=== PATIENT | female | born 1945 | race Caucasian/White ===

== ENCOUNTER 2022-11-12 15:44 | Observation (INO) ==
--- NOTE | 2022-11-12 15:55 | ED Triage Note ---
Date of Service November 12, 2022 History of Present Illness This patient was briefly evaluated while in triage. An abbreviated physical exam was performed. This patient is a 77-year-old Female who presents to the ED for evaluation of hyperglycemia. Glucometer read high in primary care's office. Blood sugars have been borderline in the past but no formal diagnosis of diabetes. She was taken to PCP today because she has been urinating a lot and feeling groggy. Increased thirst. No nausea or vomiting. No chest pain or shortness of breath. No abdominal pain, no new neurologic symptoms. Physical Exam CONSTITUTIONAL: in no acute pain or distress, resting comfortably SKIN: pink, warm, dry CARDIAC: regular rate and rhythm RESPIRATORY: in no respiratory distress, lungs clear to auscultation ABDOMEN: Nontender Initial orders for labs and / or imaging were placed and patient was placed in the waiting area until a bed is available. Please see further documentation for the full ED course.
[2022-11-12 16:40] LABS: Basophils # (auto) 0.04 K/uL (0-0.2); Basophils % (auto) 0.4 %; Eosinophils # (auto) 0.01 K/uL (0-0.50); Eosinophils % (auto) 0.1 %; Hematocrit (blood only) 46.8 % (37.0-47.0); Hemoglobin 15.5 g/dl (12.0-16.0); Immature Granulocytes # (auto) 0.05 K/uL (0.01-0.20); Immature Granulocytes % (auto) 0.5 %; Lymphocytes # (auto) 1.15 K/uL (1.2-3.4); Lymphocytes % (auto) 12.3 %; Mean Corpuscular Hemoglobin 30.1 pg (25.0-34.0); Mean Corpuscular Hgb Conc 33.1 g/dL (32.0-36.0); Mean Corpuscular Volume 90.9 fL (80.0-100.0); Monocytes # (auto) 0.44 K/uL (0.11-0.59); Monocytes % (auto) 4.7 %; Neutrophils # (auto) 7.66 K/uL (1.40-6.50); Platelet Count 235 K/uL (130-400); RDW Coefficient of Variation 12.8 % (11.5-14.5); RDW Standard Deviation 42.6 fL (36.4-46.3); Red Blood Count 5.15 M/uL (4.20-5.40); White Blood Count 9.35 K/ul (4.8-10.8)
[2022-11-12 17:11] LABS: Albumin Globulin Ratio 1.8 (0.9-2); Albumin Level 4.8 gm/dl (3.4-5.0); BUN Creatinine Ratio 22.4 (10-20); Bilirubin,Total 1.6 mg/dl (0.2-1.0); Calcium 10.2 mg/dl (8.6-10.3); Est GFR (African American) 24.7 ml/min; Est GFR (Non-African American) 21.3 ml/min; Globulin 2.7 gm/dl (2.5-4.0); Potassium 4.5 mmol/L (3.5-5.1); Total Protein 7.5 gm/dl (6.0-8.3)
[2022-11-12] MEDS ORDERED: SODIUM CHLORIDE 0.9% 1000ML 1,000 ML IV ONE (17:38)
[2022-11-12] MEDS ORDERED: NovoLIN-R INSULIN PER UNIT CHARGE SC STA (17:39)
[2022-11-12] MEDS ORDERED: NovoLIN-R INSULIN PER UNIT CHARGE IV STA (17:39)
[2022-11-12 17:44] LABS: Base Excess VBG 2.4 mEq/L; HCO3 VBG 30 mmol/L; Oxygen Saturation VBG 61.2 %; PCO2 VBG 58 mmHg (38-50); PO2 VBG 38 mmHg; pH VBG 7.32 (7.36-7.41)
--- NOTE | 2022-11-12 18:20 | Emergency Department Note ---
Impression & Plan Acute hyperglycemia, Acute dehydration, Acute kidney injury ED Provider Note INFORMANT: Patient ED PROVIDER(S): Per Doll DO CHIEF COMPLAINT: Hyperglycemia, new onset diabetes PLAN: Disposition: Admission Outpatient prescription management: none Discussion with: I spoke with the hospitalist, who will see the patient for admission/observation and further evaluation and consultation. MEDICAL DECISION MAKING: This is a 77-year-old female who presents to the ED with a chief complaint of hyperglycemia. The patient states that over the past week or so she has had frequent urination and thirst. She states that she saw her medical provider, Jesus Manuel Vaughn from [facility]. He did a BSG there and it was read high. She states that the last time she was seen by him, he reported that she was borderline diabetes in July. The patient has no other complaints. Denies any sources of infection or possible infections. No respiratory symptoms. No abdominal pains. No urinary symptoms. No rashes or cellulitis. The patient's physical exam was unremarkable. She is in no distress on my exam. Vital signs are normal. CBC did not show leukocytosis or anemia. The BUN is 49 and creatinine is 2.19. This is at least double what it was on her previous labs about 2 years ago. Creatinine previously was 1.07. BSG today is 1000. Total bilirubin is slightly elevated at 1.6. This is up from 0.7 previously. VBG shows an acidosis with a pH of 7.32. The patient was hydrated with a liter of normal saline IV. She was given 10 units of IV regular insulin and 10 units of subcu regular insulin. She will be seen by the hospitalist for further evaluation and care. Triage Nursing notes reviewed. Vital Signs: reviewed Prior /Outside records reviewed: none Differential diagnosis: New onset diabetes, hyperglycemia, acute kidney injury, electrolyte abnormality, infection, other. Diagnostics, as interpreted by me: 12 lead ECG: None Cardiac Monitoring ordered: none Medical decision rules: none Imaging studies: none Procedures: none. Critical care: none. HPI: See MDM above. PAST MEDICAL HISTORY: See Below PAST SURGICAL HISTORY: See Below SOCIAL HISTORY: See Below HOME MEDICATIONS: See Below ALLERGIES: See Below VITALS: See Below PHYSICAL EXAMINATION: See MDM for positive findings otherwise unremarkable. CONSTITUTIONAL/VITAL SIGNS: Reviewed GENERAL:done as appropriate INTEGUMENTARY: done as appropriate HEAD: done as appropriate EYES: done as appropriate RESPIRATORY: done as appropriate CARDIOVASCULAR:done as appropriate GI/ABDOMEN:done as appropriate EXTREMITIES: done as appropriate NEUROLOGICAL: done as appropriate PSYCHIATRIC:done as appropriate MUSCULOSKELETAL:done as appropriate TRIAGE NURSING DOCUMENTATION REVIEWED. Past Med/Surg History Medical History CVA (cerebral vascular accident) High cholesterol Hypertension Surgical History H/O tubal ligation Social History Smoking Status: Former smoker Preferred Language: Maori Feels Safe at Home: Yes Allergies Allergies Allergy/AdvReac Type Severity Reaction Status Date / Time No Known Allergies Allergy Unverified 05/05/21 17:21 Results & Data (ED) Vital Signs Vital Signs - 24 hr 11/12/22 15:49 11/12/22 17:34 Temperature 36.5 C Temperature Source Temporal Artery Scan Pulse Rate 85 77 Respiratory Rate 18 Respiratory Effort / Characteristics Non-Labored Spontaneous Respiratory Depth Normal Blood Pressure 107/74 Blood Pressure Mean 85 Pulse Oximetry 95 Oxygen Delivery Method Room Air Sepsis Recent Fever Within 48 Hours No Sepsis New/Unexplained Change in Mental Status No Sepsis Action Taken by Nursing No Action Required Laboratory Data 11/12/22 16:00 11/12/22 16:00 Lab Results 11/12/22 11/12/22 11/12/22 Range/Units 15:55 16:00 16:00 WBC 9.35 (4.8-10.8) K/ul RBC 5.15 (4.20-5.40) M/uL Hgb 15.5 (12.0-16.0) g/dl Hct 46.8 (37.0-47.0) % MCV 90.9 (80.0-100.0) fL MCH 30.1 (25.0-34.0) pg MCHC 33.1 (32.0-36.0) g/dL RDW Std Deviation 42.6 (36.4-46.3) fL RDW Coeff of Bin 12.8 (11.5-14.5) % Plt Count 235 (130-400) K/uL MPV 12.0 (9.4-12.4) fL Immature Gran % (Auto) 0.5 % Neut % (Auto) 82.0 % Lymph % (Auto) 12.3 % Limestone % (Auto) 4.7 % Eos % (Auto) 0.1 % Baso % (Auto) 0.4 % Neut # (Auto) 7.66 H (1.40-6.50) K/uL Lymph # (Auto) 1.15 L (1.2-3.4) K/uL Limestone # (Auto) 0.44 (0.11-0.59) K/uL Eos # (Auto) 0.01 (0-0.50) K/uL Baso # (Auto) 0.04 (0-0.2) K/uL Immature Gran # (Auto) 0.05 (0.01-0.20) K/uL VBG pH (7.36-7.41) VBG pCO2 (38-50) mmHg VBG pO2 mmHg VBG HCO3 mmol/L VBG O2 Saturation % VBG Base Excess mEq/L Sodium 130 L (136-145) mmol/L Potassium 4.5 (3.5-5.1) mmol/L Chloride 86 L (98-107) mmol/L Carbon Dioxide 27 (21-32) mmol/L Anion Gap 17 H (3-11) BUN 49 H (6-23) mg/dl Creatinine 2.19 H (0.6-1.2) mg/dl Est Cr Clr Drug Dosing 22.0 ml/min Est GFR ( Amer) 24.7 ml/min Est GFR (Non-Af Amer) 21.3 ml/min BUN/Creatinine Ratio 22.4 H (10-20) Glucose 1000 H* (70-99(Fasting)) mg/dl POC Glucose > 600 H* (70-99) mg/dl Calcium 10.2 (8.6-10.3) mg/dl Magnesium Total Bilirubin 1.6 H (0.2-1.0) mg/dl AST 44 H (13-39) U/L ALT 53 H (7-52) U/L Alkaline Phosphatase 113 H (34-104) U/L Total Protein 7.5 (6.0-8.3) gm/dl Albumin 4.8 (3.4-5.0) gm/dl Globulin 2.7 (2.5-4.0) gm/dl Albumin/Globulin Ratio 1.8 (0.9-2) 11/12/22 11/12/22 Range/Units 17:11 17:26 WBC (4.8-10.8) K/ul RBC (4.20-5.40) M/uL Hgb (12.0-16.0) g/dl Hct (37.0-47.0) % MCV (80.0-100.0) fL MCH (25.0-34.0) pg MCHC (32.0-36.0) g/dL RDW Std Deviation (36.4-46.3) fL RDW Coeff of Bin (11.5-14.5) % Plt Count (130-400) K/uL MPV (9.4-12.4) fL Immature Gran % (Auto) % Neut % (Auto) % Lymph % (Auto) % Limestone % (Auto) % Eos % (Auto) % Baso % (Auto) % Neut # (Auto) (1.40-6.50) K/uL Lymph # (Auto) (1.2-3.4) K/uL Limestone # (Auto) (0.11-0.59) K/uL Eos # (Auto) (0-0.50) K/uL Baso # (Auto) (0-0.2) K/uL Immature Gran # (Auto) (0.01-0.20) K/uL VBG pH 7.32 L (7.36-7.41) VBG pCO2 58 H (38-50) mmHg VBG pO2 38 mmHg VBG HCO3 30 mmol/L VBG O2 Saturation 61.2 % VBG Base Excess 2.4 mEq/L Sodium (136-145) mmol/L Potassium (3.5-5.1) mmol/L Chloride (98-107) mmol/L Carbon Dioxide (21-32) mmol/L Anion Gap (3-11) BUN (6-23) mg/dl Creatinine (0.6-1.2) mg/dl Est Cr Clr Drug Dosing ml/min Est GFR ( Amer) ml/min Est GFR (Non-Af Amer) ml/min BUN/Creatinine Ratio (10-20) Glucose (70-99(Fasting)) mg/dl POC Glucose (70-99) mg/dl Calcium (8.6-10.3) mg/dl Magnesium Cancelled Total Bilirubin (0.2-1.0) mg/dl AST (13-39) U/L ALT (7-52) U/L Alkaline Phosphatase (34-104) U/L Total Protein (6.0-8.3) gm/dl Albumin (3.4-5.0) gm/dl Globulin (2.5-4.0) gm/dl Albumin/Globulin Ratio (0.9-2) Administered Medications Sodium Chloride (Nss 1000ml) 1,000 mls @ 999 mls/hr IV .[id number] ONE Stop: 11/12/22 18:38 Last Admin: 11/12/22 18:08 Dose: 999 mls/hr Documented By: UZIEL Discontinued Medications Insulin Human Regular (Novolin-R Insulin Per Unit Charge) 10 units IV NOW STA Stop: 11/12/22 17:40 Last Admin: 11/12/22 18:08 Dose: 10 units Documented By: UZIEL Co-signed By: CHATO Insulin Human Regular (Novolin-R Insulin Per Unit Charge) 10 units SC NOW STA Stop: 11/12/22 17:40 Last Admin: 11/12/22 18:08 Dose: 10 units Documented By: UZIEL Co-signed By: CHATO Discharge Plan Visit Data Chief Complaint: Hyperglycemia Stated Complaint: REF BY DOC,HIGH SUGAR LEVEL ED Provider: Per Doll Discharge Problem: Acute hyperglycemia, Acute dehydration, Acute kidney injury Patient Disposition: Being Evaluated by Hospitalist Forms Stand Alone Forms: My [facility] Referrals Referrals: Lester Cali [Primary Care Provider] -
[2022-11-12 18:21] LABS: Magnesium 2.2 mg/dl (1.7-2.4)
[2022-11-12] MEDS ORDERED: STAT IV Infusion **Titration per Protocol STA (18:52)
[2022-11-12] MEDS ORDERED: PHARMACY GLYCEMIC MGMT CONSULT PRN (18:52)
[2022-11-12] MEDS ORDERED: GLUCAGON FOR INJ 1 MG VIAL IM PRN (19:30)
[2022-11-12] MEDS ORDERED: SODIUM CHLORIDE 0.45 % 1,000 ML IV SCH (19:30)
[2022-11-12] MEDS ORDERED: DEXTROSE 50% 50 ML SYRINGE IV PRN (19:30)
[2022-11-12] MEDS ORDERED: CARBOHYDRATES FOR HYPOGLYCEMIA PO PRN (19:30)
[2022-11-12] MEDS ORDERED: GLUCOSE 10 TAB/TUBE PO PRN (19:30)
[2022-11-12] MEDS ORDERED: GLUCOSE 40% GEL 15 GM TUBE PO PRN (19:30)
[2022-11-12 19:52] LABS: BUN Creatinine Ratio 24.7 (10-20); Calcium 9.5 mg/dl (8.6-10.3); Creatinine Clr Calc Pharmacy 24.8 ml/min; Est GFR (African American) 28.6 ml/min; Est GFR (Non-African American) 24.7 ml/min; Magnesium 2.2 mg/dl (1.7-2.4); Phosphorus 3.5 mg/dl (2.5-4.9); Potassium 3.1 mmol/L (3.5-5.1)
--- NOTE | 2022-11-12 19:53 | History & Physical Report ---
Date of Service November 12, 2022 Assessment & Plan (1) Acute hyperglycemia: Plan: 77 F with prior history of elevated cholesterol, hypertension who presented to emergency room for persistent thirst, urinary frequency. Now admitted for management of new acute onset hyperglycemia. Acute hyperglycemia -No previous episodes of hypoglycemia, although patient was informed she was hyperglycemic at last routine visit with outpatient provider. -Presented only with increased urinary frequency and thirst. No recent illness, lethargy, dyspnea, abdominal pain. -BSG 1000 on admission. Afebrile. No leukocytosis. pH of 7.32. AG-17. Na + 130, BUN 49, creatinine 2.19. Total bilirubin 1.6. AST/ALT 44/53. Alk phos slightly elevated at 113. -S/p IV NS x1 L bolus, 10 units IV insulin, 10 units SC insulin in the ED. -K+ dropped to 3.1, from 4.5. Repleted with 40 mEq of IV KCl. Initiated 1/2 NS +20 mEq KCl. * Admit to PCU. * N.p.o. except for sips and chips. * 1/2 NS + 20 mEq KCl@150 mL/h. * Continue IV insulin per protocol once potassium repleted. * BSG glucometer checks every hour. Transition to SC insulin per protocol once BSG <250. * BMP, Mg, phosphorus, VBG checks every 4 hours. Replete lytes per protocol. * A.m. hemoglobin A1c RYAN -Creatinine 2.19. 1.07 at baseline. Already improved to 1.94 prior to admission. -Likely prerenal due to reported dehydration, BUN/creatinine ratio. * IV hydration, as above. Hypertension -Chronic; patient on irbesartan-HCTZ 300-25 mg, Toprol 100 mg, amlodipine 5 mg. * Held on admission. Resume once able to tolerate p.o. Hypercholesterolemia -Chronic; patient on atorvastatin 40 mg. * Held on admission. Resume once able to tolerate p.o. Code: Full code Dispo: PCU FEN/GI: NPO. D5 1/2 NS +20 mEq KCl@150 mL/h DVT Prophylaxis: Lovenox 40 mg q24h PT/OT: No Consults: None Case Management: No (2) Acute kidney injury: (3) Hypertension: (4) High cholesterol: (5) Hyperosmolar hyperglycemic state (HHS): History of Present Illness Primary Care Provider: Lester Garrison is a 77-year-old female who presents to the ED with a chief complaint of hyperglycemia. The patient states that over the past week or so she has had frequent urination and thirst. She presented to her outpatient provider, who measured her BSG which was high. She states that the last time she was seen by him, she was told that she was borderline diabetes in July. The patient has no other complaints. Denies any sources of infection or possible infections. No respiratory symptoms. No abdominal pains. No urinary symptoms. No rashes or cellulitis. Vital signs are normal. CBC did not show leukocytosis or anemia. The BUN is 49 and creatinine is 2.19. This is at least double what it was on her previous labs about 2 years ago. Creatinine previously was 1.07. BSG today is 1000. Total bilirubin is slightly elevated at 1.6. This is up from 0.7 previously. VBG shows an acidosis with a pH of 7.32. The patient was hydrated with a liter of normal saline IV. She was given 10 units of IV regular insulin and 10 units of SC regular insulin. On admission, she continues to deny any prior infection, respiratory symptoms, abdominal pain, or urinary symptoms. She is accompanied by her daughter, who is at bedside and corroborates this account. ROS + for thirst only. Allergies Allergy/AdvReac Type Severity Reaction Status Date / Time No Known Allergies Allergy Unverified 11/12/22 18:53 Home Medications Medication Instructions Recorded Confirmed Type amlodipine 5 mg tablet 5 mg PO DAILY 11/12/22 11/12/22 History ascorbic acid (vitamin C) 500 mg 0 mg PO DAILY 11/12/22 11/12/22 History tablet aspirin 81 mg tablet,delayed 81 mg PO DAILY 11/12/22 11/12/22 History release atorvastatin 80 mg tablet 80 mg PO DAILY 11/12/22 11/12/22 History cholecalciferol (vitamin D3) 25 25 mcg PO DAILY 11/12/22 11/12/22 History mcg (1,000 unit) tablet irbesartan 150 2 tab PO DAILY 11/12/22 11/12/22 History mg-hydrochlorothiazide 12.5 mg tablet metoprolol succinate 100 mg 100 mg PO DAILY 11/12/22 11/12/22 History tablet,extended release 24 hr zinc gluconate 50 mg tablet 0 mg PO DAILY 11/12/22 11/12/22 History Past Med/Surg History Medical History (Updated 11/13/22 @ 08:02 by Sourav Kent MD) CVA (cerebral vascular accident) High cholesterol Hypertension Surgical History H/O tubal ligation Social History Smoking Status: Former smoker Second Hand Exposure: No; Do You Dip or Chew Tobacco: No; Tobacco Cessation Education Requested by Patient: No Hx Alcohol Use: No Hx Substance Use: No Preferred Language: Danish Communication Ability: Effective Personal Lines Agent Required: No Beliefs That Will Affect Care: None Current Living Situation: Alone Feels Safe at Home: Yes Safety Concerns: Feels Safe At This Time Review of Systems Review of Systems: All systems reviewed & are unremarkable except as noted in HPI & below Physical Exam Physical Exam: General: No acute distress HEENT: PERRLA. Normal conjunctiva, anicteric sclera. Oropharynx normal. Respiratory: Normal respiratory effort, CTABL. Cardiovascular: RRR without murmurs, gallops, or rubs. No edema. GI: Soft abdomen with normal bowel sounds heard on auscultation. Nontender x4 quadrants Neuro: Alert and oriented x3. Results & Data Results & Data Vital Signs (Past 12 Hours) Vital Signs Temp Pulse Resp BP Pulse Ox O2 Del Method 11/12/22 18:30 91 H 14 93 11/12/22 18:30 122/72 11/12/22 18:00 74 17 92 11/12/22 18:00 129/79 11/12/22 17:31 75 18 92 11/12/22 17:30 112/70 11/12/22 17:34 77 11/12/22 15:49 36.5 C 85 18 107/74 95 Room Air Supervising Physician Co-Signing Physician Notes I personally saw and examined the patient. I verified all mckeon points and agree with resident physician Dr Osmar Carrera MD with the following exceptions and/or additions: 77 year old female presents to the ER on advice of her PCP with hyperglycemia, polyuria and polydipsia. She has had nothing to eat since supper last night and ER glucose level 1000 mg/dL. Also notes unintentional weight loss. No abdominal pain. O/E Alert and orientated x3, HS RRR, no murmurs, Chest CTAB, Abdo SNT, no CVA tenderness. A/P Hyperosmolar hyperglycemic state - Agree with insulin drip but aim adjusted for HHS 250-350. IV fluids adjusted for protocol. D5 to be added to fluids only once glucose reaches goal. Potassium chloride 40meq PO added. Insulin drip held until K > 3.3. Given acute onset and severity with concurrent unintentional weight loss and elevated LFTs will get CT A/P with IV contrast in AM once renal function improved to rule out anatomical reason for pancreatic dysfunction. HbA1C with AM labs. HTN - agree with holding irbesartan/HCTZ/amlodipine as above. Will continue metoprolol to avoid rebound tachycardia with usual hold parameters. RYAN - suspect pre-renal, should improve with IV fluids Resident Activity Tracking Resident Involvement: Resident Care Provided Care Provided: Adult Hospital Medicine
[2022-11-12] MEDS: INSULIN REGULAR 250 UNITS in SODIUM CHLORIDE 0.9% 247.5 ML IV SCH (19:56)
[2022-11-12] MEDS ORDERED: D5W AND 1/2NSS + 20MEQ KCL 20 MEQ/1,000 ML BAG IV SCH (20:15)
[2022-11-12 20:22] LABS: Appearance Urine Clear (Clear); Bilirubin Urine Negative (Negative); Blood Urine Negative (Negative); Color Urine Yellow; Glucose Urine UA 3+ (Negative); Ketones Urine 1+ (Negative); Leukocyte Esterase Urine Negative (Negative); Nitrite Urine Negative (Negative); Protein Urine Negative (Negative); Specific Gravity Urine 1.031 (1.000-1.030); Urobilinogen Urine Negative (Negative)
[2022-11-12] MEDS: POTASSIUM CHLORIDE / WTR 10 MEQ/100 ML PLCT IV SCH ×2 (21:10→22:07)
[2022-11-12] MEDS ORDERED: POTASSIUM CHLORIDE CRTAB 20 MEQ TABCR PO STA (21:39)
[2022-11-12] MEDS: INSULIN ASPART PER UNIT CHARGE SC SCH (21:55)
[2022-11-12] MEDS ORDERED: SODIUM CHLOR 0.45% + 20MEQ KCL 20 MEQ/1,000 ML BAG IV SCH (22:00)
[2022-11-12 23:44] LABS: BUN Creatinine Ratio 30.5 (10-20); Calcium 9.6 mg/dl (8.6-10.3); Est GFR (African American) 38.8 ml/min; Est GFR (Non-African American) 33.5 ml/min; Magnesium 2.1 mg/dl (1.7-2.4); Phosphorus 3.2 mg/dl (2.5-4.9); Potassium 3.8 mmol/L (3.5-5.1)
[2022-11-13] MEDS ORDERED: D5W AND 1/2NSS + 20MEQ KCL 20 MEQ/1,000 ML BAG IV SCH (01:30)
[2022-11-13] MEDS: PENDING D5 1/2NS+20mEq KCL IVF SCH ×2 (01:33→01:34)
[2022-11-13 04:37] LABS: Albumin Globulin Ratio 1.6 (0.9-2); Albumin Level 3.9 gm/dl (3.4-5.0); BUN Creatinine Ratio 33.9 (10-20); Bilirubin,Total 0.9 mg/dl (0.2-1.0); Calcium 9.3 mg/dl (8.6-10.3); Est GFR (African American) 47.8 ml/min; Est GFR (Non-African American) 41.2 ml/min; Globulin 2.5 gm/dl (2.5-4.0); Potassium 3.3 mmol/L (3.5-5.1); Total Protein 6.4 gm/dl (6.0-8.3)
[2022-11-13] MEDS ORDERED: POTASSIUM CHLORIDE 10 MEQ TABCR PO STA (05:03)
[2022-11-13 05:11] LABS: Phosphorus 2.4 mg/dl (2.5-4.9)
[2022-11-13] MEDS: POTASSIUM CHLORIDE 40 MEQ in D5W AND 1/2NSS 1,000 ML IV SCH ×2 (05:18→12:41)
[2022-11-13 06:14] LABS: Basophils # (auto) 0.05 K/uL (0-0.2); Basophils % (auto) 0.5 %; Eosinophils # (auto) 0.15 K/uL (0-0.50); Eosinophils % (auto) 1.5 %; Hematocrit (blood only) 39.1 % (37.0-47.0); Hemoglobin 13.6 g/dl (12.0-16.0); Immature Granulocytes # (auto) 0.04 K/uL (0.01-0.20); Immature Granulocytes % (auto) 0.4 %; Lymphocytes # (auto) 2.65 K/uL (1.2-3.4); Lymphocytes % (auto) 26.8 %; Mean Corpuscular Hemoglobin 29.9 pg (25.0-34.0); Mean Corpuscular Hgb Conc 34.8 g/dL (32.0-36.0); Mean Corpuscular Volume 85.9 fL (80.0-100.0); Mean Platelet Volume 11.2 fL (9.4-12.4); Monocytes # (auto) 0.73 K/uL (0.11-0.59); Monocytes % (auto) 7.4 %; Neutrophils # (auto) 6.28 K/uL (1.40-6.50); Neutrophils % (auto) 63.4 %; Platelet Count 198 K/uL (130-400); RDW Coefficient of Variation 12.5 % (11.5-14.5); RDW Standard Deviation 38.7 fL (36.4-46.3); Red Blood Count 4.55 M/uL (4.20-5.40)
[2022-11-13] MEDS ORDERED: OPTIRAY 320 100ml IV ONE (06:16)
[2022-11-13 07:10] LABS: Estimated Average Glucose 384 mg/dl
[2022-11-13] MEDS ORDERED: LANTUS PER UNIT CHARGE SC ONE ×2 (07:30→13:30)
[2022-11-13 07:45] LABS: Calcium 8.9 mg/dl (8.6-10.3); Potassium 3.8 mmol/L (3.5-5.1)
[2022-11-13 07:51] LABS: BUN Creatinine Ratio 32.5 (10-20); Creatinine Clr Calc Pharmacy 41.2 ml/min; Est GFR (African American) 52.8 ml/min; Est GFR (Non-African American) 45.5 ml/min
--- NOTE | 2022-11-13 08:13 | Billing Data ---
Date of Service November 12, 2022 Coding Level of Care Code 09739 INT INP/OBS CARE
--- NOTE | 2022-11-13 08:20 | Medical Student Progress Note ---
Date of Service November 13, 2022 Assessment & Plan (1) Acute hyperglycemia: Plan: Meli is a 77-year-old female with a PMHx of HTN, HLD, prediabetes, stroke s/p left stent placement (2019), and macular degeneration who was admitted on 11/12/22 for concerns of hyperglycemia. Acute hyperglycemia, concern for HHS - No previous episodes of hypoglycemia. Meli was informed that she was hyperglycemic at last routine visit with outpatient provider. - Ion gap closed. POC Glucose: 387 at 11 am. Continued IV insulin and 1/2 Normal saline. - BSG glucometer checks every hour. - CMP, Mg, phosphorus, VBG checks daily. - Phosphorous at 2.0. Repleted with Potassium Phosphorous 15 mmol IV. - Replete electrolytes per protocol. Heart murmur, new, likely aortic stenosis - Murmur appreciated on exam. - Echo ordered Hepatic Lobe Mass - CT Abd/pelvic 11/13/22: "5.7 x 4.2 cm segment 7/8 right hepatic lobe mass with peripheral enhancement. This is suspicious for a neoplastic process and could reflect a primary hepatic malignancy. Metastatic disease is also within the differential. Liver protocol MRI with and without contrast is recommended for further evaluation." -Discussed results of the CT with patient and her two sons. They were agreeable to a liver biopsy pending stabilization. Interventional radiology will not be available until Thursday and will follow up with Meli outpatient. -Will get INR tomorrow. Reactive transaminitis, resolved - Etiology likely secondary to HHS. RYAN, likely prerenal, resolving -At presentation: Creatinine 2.19. 1.07 at baseline. -Improved to 1.17 as of 11/13/22 -Likely prerenal due to reported dehydration, BUN/creatinine ratio. -Continue IV hydration, as above. Hypertension, chronic, stable. -On irbesartan-HCTZ 300-25 mg, metoprolol ER 100 mg, amlodipine 5 mg. -Continue to hold Irbesartan-HCTZ and amlodipine. Hypercholesterolemia, chronic, stable. -On atorvastatin 40 mg. -Resuming as patient is able to tolerate p.o. Code: Full code Dispo: PCU FEN/GI: DM2 diet DVT Prophylaxis: Lovenox 40 mg q24h Held home meds: irbesartan-HCTZ and amlodipine PT/OT: No Consults: Diabetes education Case Management: No Admission and Anticipated Discharge Date Admission Date: November 12, 2022 Supervising Attestation Medical Student Supervision Note: I was personally present during medical student patient encounter and independently interviewed and examined the patient and verified the mckeon history and physical, reviewed labs and image studies, discussed the case with Kristi Harrington and agree with the findings and care plan. HHS - New diagnosis if diabetes. On IV insulin drip and IVF. BSG improving. follow. New hepatic mass - will need IR about biopsy RYAN/Transaminitis - resolved. Heart murmur - echo ordered. Ann Garrison is a 77-year-old female with a PMHx of HTN, HLD, prediabetes, stroke s/p left stent placement (2019), and macular degeneration who was admitted on 11/12/22 for concerns of hyperglycemia. She went to the ED at the advice of her grandson who is a nurse, but does not remember why he advised her to come in. Over the past week, she has had polyuria and polydipsia. She has not been having respiratory symptoms, abdominal pains, dysuria, rashes, back pain, or confusion. She had not noticed any weight loss. Meli reported having little feeling in her right hand, secondary to a prior stroke. She has no other concerns. She last saw her PCP in July and was told that her glucose was borderline. The patient was hydrated with a liter of normal saline IV.She was given 10 units of IV regular insulin and 10 units of SC regular insulin. Today, she does not have any concerns other than being thirsty. She has no abdominal pain, respiratory, or urinary symptoms. She has [facility] insurance and is not concerned about having access to any medications she will need to be on after leaving the hospital. Home Medications Medication Instructions Recorded Confirmed amlodipine 5 mg tablet 5 mg PO DAILY 11/12/22 11/12/22 ascorbic acid (vitamin C) 500 mg 0 mg PO DAILY 11/12/22 11/12/22 tablet aspirin 81 mg tablet,delayed 81 mg PO DAILY 11/12/22 11/12/22 release atorvastatin 80 mg tablet 80 mg PO DAILY 11/12/22 11/12/22 cholecalciferol (vitamin D3) 25 25 mcg PO DAILY 11/12/22 11/12/22 mcg (1,000 unit) tablet irbesartan 150 2 tab PO DAILY 11/12/22 11/12/22 mg-hydrochlorothiazide 12.5 mg tablet metoprolol succinate 100 mg 100 mg PO DAILY 11/12/22 11/12/22 tablet,extended release 24 hr zinc gluconate 50 mg tablet 0 mg PO DAILY 11/12/22 11/12/22 Review of Systems Review of Systems: See HPI for pertinent positives & negatives. A total of 10 systems reviewed and were otherwise negative. Physical Exam Physical Exam: Vital Signs Temp 36.9 C 11/13/22 08:00 Pulse 63 11/13/22 08:00 Resp 18 11/13/22 08:00 BP 101/63 11/13/22 08:00 Pulse Ox 97 11/13/22 08:00 O2 Del Method Room Air 11/13/22 08:00 O2 Flow Rate 97 11/13/22 08:00 Intake & Output 11/12/22 11/13/22 11/13/22 18:59 06:59 18:59 Intake Total 4730.890 / 4730.89 0 Balance 4730.890 / 4730.89 0 Weight 74.6 kg 75.16 kg Intake: IV 4730.890 / 4730.89 0 D5w and 1/2Nss + 20Meq KCl 20 1512.5 / 1512.5 meq In 1,000 m l @ 150 mls/hr IV .Q6H40M [facility] Rx #:[id number] Insulin Regula r 250 units In 23.390 / 23.390 Sodium Chlorid e 0.9% 247.5 ml @ 2.2 UNITS/HR 2 .2 mls/hr IV . Q24H [facility] Rx#:[id number] Potassium Chlo ride / Wtr 10 meq 195 / 195 In 100 ml @ 10 0 mls/hr IV Q1H [facility] Rx#:[id number] Sodium Chlor 0 .45% + 20Meq KCl 1000 / 1000 20 meq In 1,00 0 ml @ 150 mls/hr IV .Q6H40M [facility] Rx#:[id number] Sodium Chlorid e 0.45 % 1,000 ml 1000 / 1000 @ 150 mls/hr I V .Q6H40M [facility] Rx #:[id number] Sodium Chlorid e 0.9% 1000ML 1, 1000 / 1000 000 ml @ 999 m ls/hr IV .Q1H1M ONE Rx#:[id number] Other: # Unmeasured Voi ds 1 Weight Measureme nt Method Built in [facility] Weight: 164 lbs (184 lbs 04/2020) General: No acute distress HEENT: PERRLA. Normal conjunctiva, anicteric sclera. Oropharynx normal. Dry mucus membranes. Respiratory: Normal respiratory effort, CTABL. Cardiovascular: RRR. Systolic murmur appreciated over the right second intercostal space. MSK: No obvious deformities. Dry skin appreciated over the calves and feet bilaterally. No ulcers appreciated. No pitting edema. Sensation to pressure intact in the b/l lower extremities. Neuro: Alert and oriented x3. Psych: Affect somewhat restricted. Results & Data Vital Signs (Past 12 Hours) Vital Signs Temp Pulse Pulse Resp BP BP BP 11/13/22 02:54 36.4 C L 53 L 18 104/68 90/58 L 11/12/22 23:00 64 11/12/22 23:13 36.3 C L 70 20 104/70 11/12/22 21:00 69 11/12/22 21:00 11/12/22 21:00 36.3 C L 73 18 111/75 11/12/22 20:55 68 18 114/72 Pulse Ox O2 Del Method 11/13/22 02:54 90 Room Air 11/12/22 23:00 11/12/22 23:13 92 Room Air 11/12/22 21:00 11/12/22 21:00 Room Air 11/12/22 21:00 92 Room Air 11/12/22 20:55 99 Room Air Laboratory Results Abnormal Labs 11/12/22 11/12/22 11/12/22 15:55 16:00 16:00 Neut # (Auto) 7.66 H Lymph # (Auto) 1.15 L [place] # (Auto) VBG pH VBG pCO2 Sodium 130 L Potassium Chloride 86 L Anion Gap 17 H BUN 49 H Creatinine 2.19 H BUN/Creatinine Ratio 22.4 H Glucose 1000 H* POC Glucose > 600 H* Hemoglobin A1c Phosphorus Total Bilirubin 1.6 H AST 44 H ALT 53 H Alkaline Phosphatase 113 H Ur Specific [place] Urine Glucose (UA) Urine Ketones 11/12/22 11/12/22 11/12/22 17:26 19:01 19:05 Neut # (Auto) Lymph # (Auto) [place] # (Auto) VBG pH 7.32 L VBG pCO2 58 H Sodium Potassium 3.1 L D Chloride 96 L Anion Gap 15 H BUN 48 H Creatinine 1.94 H BUN/Creatinine Ratio 24.7 H Glucose 695 H* POC Glucose > 600 H* Hemoglobin A1c Phosphorus Total Bilirubin AST ALT Alkaline Phosphatase Ur Specific [place] Urine Glucose (UA) Urine Ketones 11/12/22 11/12/22 11/12/22 19:30 20:06 20:54 Neut # (Auto) Lymph # (Auto) [place] # (Auto) VBG pH 7.35 L VBG pCO2 Sodium Potassium Chloride Anion Gap BUN Creatinine BUN/Creatinine Ratio Glucose POC Glucose 487 H* Hemoglobin A1c Phosphorus Total Bilirubin AST ALT Alkaline Phosphatase Ur Specific [place] 1.031 H Urine Glucose (UA) 3+ H Urine Ketones 1+ H 11/12/22 11/12/22 11/12/22 21:59 22:50 22:50 Neut # (Auto) Lymph # (Auto) [place] # (Auto) VBG pH 7.42 H VBG pCO2 Sodium Potassium Chloride Anion Gap 12 H BUN 46 H Creatinine 1.51 H D BUN/Creatinine Ratio 30.5 H Glucose 427 H* POC Glucose 470 H* Hemoglobin A1c Phosphorus Total Bilirubin AST ALT Alkaline Phosphatase Ur Specific [place] Urine Glucose (UA) Urine Ketones 11/12/22 11/13/22 11/13/22 22:55 00:03 01:10 Neut # (Auto) Lymph # (Auto) [place] # (Auto) VBG pH VBG pCO2 Sodium Potassium Chloride Anion Gap BUN Creatinine BUN/Creatinine Ratio Glucose POC Glucose 420 H* 385 H* 314 H* Hemoglobin A1c Phosphorus Total Bilirubin AST ALT Alkaline Phosphatase Ur Specific [place] Urine Glucose (UA) Urine Ketones 11/13/22 11/13/22 11/13/22 01:52 02:58 03:50 Neut # (Auto) Lymph # (Auto) [place] # (Auto) VBG pH VBG pCO2 Sodium Potassium Chloride Anion Gap BUN Creatinine BUN/Creatinine Ratio Glucose POC Glucose 319 H* 318 H* Hemoglobin A1c 15.0 H Phosphorus Total Bilirubin AST ALT Alkaline Phosphatase Ur Specific [place] Urine Glucose (UA) Urine Ketones 11/13/22 11/13/22 11/13/22 03:50 03:51 03:56 Neut # (Auto) Lymph # (Auto) [place] # (Auto) 0.73 H VBG pH VBG pCO2 Sodium Potassium 3.3 L Chloride Anion Gap BUN 43 H Creatinine 1.27 H BUN/Creatinine Ratio 33.9 H Glucose 328 H* POC Glucose 327 H* Hemoglobin A1c Phosphorus 2.4 L Total Bilirubin AST ALT Alkaline Phosphatase Ur Specific [place] Urine Glucose (UA) Urine Ketones 11/13/22 11/13/22 11/13/22 04:00 04:55 06:00 Neut # (Auto) Lymph # (Auto) [place] # (Auto) VBG pH 7.42 H VBG pCO2 Sodium Potassium Chloride Anion Gap BUN Creatinine BUN/Creatinine Ratio Glucose POC Glucose 312 H* 296 H Hemoglobin A1c Phosphorus Total Bilirubin AST ALT Alkaline Phosphatase Ur Specific [place] Urine Glucose (UA) Urine Ketones 11/13/22 11/13/22 11/13/22 07:02 07:14 07:30 Neut # (Auto) Lymph # (Auto) [place] # (Auto) VBG pH VBG pCO2 Sodium Potassium Chloride Anion Gap BUN 38 H Creatinine BUN/Creatinine Ratio 32.5 H Glucose 286 H POC Glucose 289 H 308 H* Hemoglobin A1c Phosphorus 2.0 L Total Bilirubin AST ALT Alkaline Phosphatase Ur Specific [place] Urine Glucose (UA) Urine Ketones 11/13/22 11/13/22 07:31 09:22 Neut # (Auto) Lymph # (Auto) [place] # (Auto) VBG pH VBG pCO2 Sodium Potassium Chloride Anion Gap BUN Creatinine BUN/Creatinine Ratio Glucose POC Glucose 302 H* 267 H Hemoglobin A1c Phosphorus Total Bilirubin AST ALT Alkaline Phosphatase Ur Specific [place] Urine Glucose (UA) Urine Ketones Diagnostic Findings CT OF THE ABDOMEN AND PELVIS WITH CONTRAST CLINICAL HISTORY: new onset severe diabetes, weight loss ?pancreatic COMPARISON STUDY: None. TECHNIQUE: Following IV administration of 83 mL of Optiray, axial images of the abdomen and pelvis were obtained from the lung bases to the proximal femurs. Images were reviewed in the axial, sagittal, and coronal planes. IV contrast was administered without complication. Automated exposure control was utilized for the study. A dose lowering technique was utilized adhering to the principles of ALARA. CT DOSE: 543.82 mGy.cm FINDINGS: Lung bases are unremarkable. No pneumatosis, free air or portal venous gas is present. Liver morphology is normal. Note is made of a subtle 5.7 x 4.2 cm segment 7/8 right hepatic lobe lesion on axial image 81 of 461. This has peripheral enhancement. This splays the middle and right hepatic veins and may narrow the intrahepatic portion of the IVC. A small adjacent hypodense focus is noted. No additional hepatic lesions are present. There is no biliary or pancreatic ductal dilatation. Spleen, adrenal glands are unremarkable. There are a few renal cysts. There is mild pancreatic glandular atrophy. No pancreatic lesion is identified. There is no biliary or pancreatic ductal dilatation. There is no evidence for a bowel obstruction. The caliber and wall thickness of small and large bowel are normal. There is no ascites or lymphadenopathy. Infrarenal abdominal aorta is ectatic, measuring 2.4 cm. There are no acute fractures. No suspicious lesions within the visualized skeletal structures are present. IMPRESSION: 1. 5.7 x 4.2 cm segment 7/8 right hepatic lobe mass with peripheral enhancement. This is suspicious for a neoplastic process and could reflect a primary hepatic malignancy. Metastatic disease is also within the differential. Liver protocol MRI with and without contrast is recommended for further evaluation. 2. No pancreatic lesion. No pancreatic ductal dilatation. Mild pancreatic glandular atrophy. 3. No bowel obstruction. No bowel wall thickening. ACT 112: Positive. There are findings on this exam that require communication between the performing entity and the patient following Patient Test Result Information Act ([place] Act 112) guidelines. Electronically signed by: Tigre Chau M.D. 11/13/2022 1:18 PM Dictated:11/13/22 1245 Transcribed: 11/13/22 1258 Medications Administered Current Inpatient Medications Aspirin (Aspirin 81 Mg Ectab) 81 mg PO DAILY [facility] Stop: 12/13/22 08:59 Last Admin: 11/13/22 08:53 Dose: 81 mg Atorvastatin Calcium (Atorvastatin 40 Mg Tab) 80 mg PO DAILY [facility] Stop: 12/13/22 08:59 Last Admin: 11/13/22 08:53 Dose: 80 mg Dextrose (Dextrose 50% 50 Ml Syringe) 25 - 50 ml IV UD PRN; Protocol PRN Reason: Hypoglycemia Protocol Stop: 12/12/22 19:29 Enoxaparin Sodium (Enoxaparin Inj 30 Mg/0.3 Ml Syr) 30 mg SQ QAM [facility] Stop: 12/13/22 08:59 Last Admin: 11/13/22 08:53 Dose: 30 mg Glucagon (Glucagon For Inj 1 Mg Vial) 1 mg IM UD PRN; Protocol PRN Reason: Hypoglycemia Protocol Stop: 12/12/22 19:29 Glucose (Glucose 40% Gel 15 Gm Tube) 15 - 30 gm PO UD PRN; Protocol PRN Reason: Hypoglycemia Protocol Stop: 12/12/22 19:29 Glucose (Glucose 10 Tab/Tube) 4 - 8 tab PO UD PRN; Protocol PRN Reason: Hypoglycemia Protocol Stop: 12/12/22 19:29 Insulin Human Regular 250 (units/ Sodium Chloride) 250 mls @ 2.6 mls/hr IV .Q24H [facility]; Protocol Stop: 12/12/22 19:29 Last Titration: 11/13/22 04:57 Dose: 2.6 units/hr, 2.6 mls/hr Potassium Chloride 40 meq/ (Dextrose/Sodium Chloride) 1,020 mls @ 150 mls/hr IV .Q6H48M [facility]; Protocol Stop: 12/13/22 05:14 Last Admin: 11/13/22 05:18 Dose: 150 mls/hr Potassium Phosphate 15 mmol/ (Sodium Chloride) 255 mls @ 88 mls/hr IV ONE ONE Stop: 11/13/22 12:08 Insulin Aspart (Insulin Aspart Per Unit Charge) 0 units SC ACHS [facility] Stop: 12/12/22 20:59 Last Admin: 11/13/22 08:35 Dose: Not Given Metoprolol Succinate (Metoprolol Succ 50mg Ext Rel Tab) 100 mg PO DAILY [facility] Stop: 12/13/22 08:59 Last Admin: 11/13/22 08:53 Dose: 100 mg Miscellaneous (Carbohydrates For Hypoglycemia ) 15 - 30 gm PO UD PRN PRN Reason: Hypoglycemia Treatment Stop: 12/12/22 19:29 Miscellaneous Information (Pharmacy Glycemic Mgmt Consult) 1 each N/A UD PRN PRN Reason: Consult Stop: 12/12/22 18:51
[2022-11-13] MEDS: INSULIN ASPART PER UNIT CHARGE SC SCH ×4 (08:35→20:13)
--- NOTE | 2022-11-13 08:43 | Pharmacy Report ---
Pharmacy Glycemic Short Note 2 - Date of Service November 13, 2022 - Glycemic Short BSG Results (Last 24 hours): 11/12/22 11/12/22 11/12/22 15:55 16:00 19:01 Glucose 1000 H* POC Glucose > 600 H* > 600 H* 11/12/22 11/12/22 11/12/22 19:05 20:54 21:59 Glucose 695 H* POC Glucose 487 H* 470 H* 11/12/22 11/12/22 11/13/22 22:50 22:55 00:03 Glucose 427 H* POC Glucose 420 H* 385 H* 11/13/22 11/13/22 11/13/22 01:10 01:52 02:58 Glucose POC Glucose 314 H* 319 H* 318 H* 11/13/22 11/13/22 11/13/22 03:50 03:56 04:55 Glucose 328 H* POC Glucose 327 H* 312 H* 11/13/22 11/13/22 11/13/22 06:00 07:02 07:14 Glucose 286 H POC Glucose 296 H 289 H 11/13/22 11/13/22 07:30 07:31 Glucose POC Glucose 308 H* 302 H* OUTPATIENT ANTIDIABETIC REGIMEN: * N/A - new diagnosis HbA1c: 15% (11/13/22) ASSESSMENT: * DV is a 77 year old female who presented to ED on 11/12/22 w/ complaints of persistent thirst and increased urinary frequency * BSG at time of presentation was 1000 mg/dL w/ elevated anion gap 17, pH: 7.32, and normal serum bicarb * Serum osmolarity calculated to be 333 mOsm/kg at time of presentation * Apparent HHS based on this presentation * Insulin infusion and IV fluids initiated in ED * BSGs have trended down (<300 mg/dL) so will plan to begin transitioning off insulin infusion. Will give ~0.33 unit/kg basal dose x 1 now. * In light of continued upward trend - will give additional 15 units this afternoon to ~weight-based stress of 3 basal dosing per calc. * Dextrose-containing fluids discontinued PLAN FOR INPATIENT GLYCEMIC CONTROL: * Begin insulin infusion transition to SC * Basal insulin * Lantus 25 units SC x 1 this morning * Lantus 15 units SC x 1 with lunch to equal 40 units today * Bolus insulin * Per insulin calculator
[2022-11-13] MEDS: METOPROLOL SUCC 50MG EXT REL TAB PO SCH (08:53)
[2022-11-13] MEDS: ATORVASTATIN 40 MG TAB PO SCH (08:53)
[2022-11-13] MEDS: ENOXAPARIN INJ 30 MG/0.3 ML SYR SQ SCH (08:53)
[2022-11-13] MEDS: ASPIRIN 81 MG ECTAB PO SCH (08:53)
[2022-11-13] MEDS ORDERED: POTASSIUM PHOS 3 MMOL/1 ML INFUSION IV STA (08:57)
[2022-11-13] MEDS ORDERED: POTASSIUM PHOSPHATE 15 MMOL in SODIUM CHLORIDE 0.9% 250 ML IV ONE (09:15)
[2022-11-13] MEDS ORDERED: SODIUM CHLOR 0.45% + 20MEQ KCL 20 MEQ/1,000 ML BAG IV SCH (12:35)
--- NOTE | 2022-11-13 13:19 | CT Scan Report ---
CT OF THE ABDOMEN AND PELVIS WITH CONTRAST CLINICAL HISTORY: new onset severe diabetes, weight loss ?pancreatic COMPARISON STUDY: None. TECHNIQUE: Following IV administration of 83 mL of Optiray, axial images of the abdomen and pelvis we re obtained from the lung bases to the proximal femurs. Images were reviewed in the axial, sagittal, and coronal planes. IV contrast was administered without complication. Automated exposure control wa s utilized for the study. A dose lowering technique was utilized adhering to the principles of ALARA . CT DOSE: 543.82 mGy.cm FINDINGS: Lung bases are unremarkable. No pneumatosis, free air or portal venous gas is present. Live r morphology is normal. Note is made of a subtle 5.7 x 4.2 cm segment 7/8 right hepatic lobe lesion o n axial image 81 of 461. This has peripheral enhancement. This splays the middle and right hepatic ve ins and may narrow the intrahepatic portion of the IVC. A small adjacent hypodense focus is noted. No additional hepatic lesions are present. There is no biliary or pancreatic ductal dilatation. Spleen, adrenal glands are unremarkable. There are a few renal cysts. There is mild pancreatic glandular atr ophy. No pancreatic lesion is identified. There is no biliary or pancreatic ductal dilatation. There is no evidence for a bowel obstruction. The caliber and wall thickness of small and large bowel are n ormal. There is no ascites or lymphadenopathy. Infrarenal abdominal aorta is ectatic, measuring 2.4 c m. There are no acute fractures. No suspicious lesions within the visualized skeletal structures are present. IMPRESSION: 1. 5.7 x 4.2 cm segment 7/8 right hepatic lobe mass with peripheral enhancement. This is suspicious f or a neoplastic process and could reflect a primary hepatic malignancy. Metastatic disease is also wi thin the differential. Liver protocol MRI with and without contrast is recommended for further evalua tion. 2. No pancreatic lesion. No pancreatic ductal dilatation. Mild pancreatic glandular atrophy. 3. No bowel obstruction. No bowel wall thickening. ACT 112: Positive. There are findings on this exam that require communication between the performing entity and the patient following Patient Test Result Information Act ([place] Act 112) guidelines. Electronically signed by: Tigre Chau M.D. 11/13/2022 1:18 PM
--- NOTE | 2022-11-13 19:02 | XCELERA ---
[id number] [id number]
[2022-11-13] MEDS: INSULIN REGULAR 250 UNITS in SODIUM CHLORIDE 0.9% 247.5 ML IV SCH (20:17)
[2022-11-13] MEDS ORDERED: GADOXETATE DISODIUM IV ONE (22:54)
--- NOTE | 2022-11-14 00:57 | Magnetic Resonance Report ---
Exam(s): MRI ABDOMEN W/WO Contrast IV Amt: 10ml Eovist EXAM: MR Abdomen Without and With Intravenous Contrast CLINICAL HISTORY: Reason for exam: liver mass. TECHNIQUE: Multiplanar magnetic resonance images of the abdomen without and with intravenous contrast. CONTRAST: Patient received 10ml Eovist of IV contrast COMPARISON: None. FINDINGS: Lung bases: Unremarkable. No mass. No consolidation. Liver: Lobular mass redemonstrated within the liver on segment 7/8 with peripheral enhancement enhancement on early phase and some areas of minimal hypodensity within the center or delayed image. This corresponds to increased signal on diffusion images which may be associated with malignant processes such as cholangiocarcinoma. This measures 5.9 x 4.1 x 5.2 cm. Gallbladder and bile ducts: MRCP images reveal normal biliary system without intrahepatic biliary distention. No calcified stones. No ductal dilation. Pancreas: Unremarkable. No ductal dilation. No mass. Spleen: Unremarkable. No splenomegaly. Adrenals: Unremarkable. No mass. Kidneys and ureters: Right middle renal pole simple cyst measuring 14 mm. Otherwise normal right kidney. Left lower renal pole simple cyst measuring 2.3 x 2.4 cm. Additional tiny cysts within the left kidney measuring less than 4 mm. Otherwise normal left kidney. No hydronephrosis. Stomach and bowel: Unremarkable. No obstruction. Intraperitoneal space: Unremarkable. No significant fluid collection. Soft tissues: Unremarkable. Vasculature: Unremarkable. No abdominal aortic aneurysm. Lymph nodes: Unremarkable. No enlarged lymph nodes. Other findings: A metastatic process cannot be excluded. IMPRESSION: 1. Liver lesion within segment 7/8 concerning for malignant process such as cholangiocarcinoma, differential diagnosis including atypical inflammatory pseudotumor, metastatic metastatic process or cirrhosis and hepatocellular carcinoma. Clinical correlation recommended. 2. Tiny bilateral simple renal cysts with no follow-up imaging is recommended unless warranted by clinical presentation. Otherwise normal bilateral kidneys. 3. Normal biliary system. Electronically signed by: Zoie Vora MD 11/14/22 00:56 AM
[2022-11-14] MEDS: INSULIN ASPART PER UNIT CHARGE SC SCH ×3 (04:02→12:33)
[2022-11-14 06:50] LABS: Hematocrit (blood only) 39.4 % (37.0-47.0); Hemoglobin 13.7 g/dl (12.0-16.0); Mean Corpuscular Hemoglobin 30.3 pg (25.0-34.0); Mean Corpuscular Hgb Conc 34.8 g/dL (32.0-36.0); Mean Corpuscular Volume 87.2 fL (80.0-100.0); Mean Platelet Volume 10.9 fL (9.4-12.4); Platelet Count 170 K/uL (130-400); RDW Coefficient of Variation 12.6 % (11.5-14.5); RDW Standard Deviation 39.8 fL (36.4-46.3); Red Blood Count 4.52 M/uL (4.20-5.40); White Blood Count 7.25 K/ul (4.8-10.8)
[2022-11-14] MEDS ORDERED: LANTUS PER UNIT CHARGE SC ONE ×2 (08:00→11:45)
[2022-11-14] MEDS: ATORVASTATIN 40 MG TAB PO SCH (08:48)
[2022-11-14] MEDS: ENOXAPARIN INJ 30 MG/0.3 ML SYR SQ SCH (08:48)
[2022-11-14] MEDS: METOPROLOL SUCC 50MG EXT REL TAB PO SCH (08:48)
[2022-11-14] MEDS: ASPIRIN 81 MG ECTAB PO SCH (08:49)
--- NOTE | 2022-11-14 09:31 | Pharmacy Report ---
Pharmacy Glycemic Short Note 2 - Date of Service November 14, 2022 - Glycemic Short BSG Results (Last 24 hours): 11/13/22 11/13/22 11/13/22 09:22 11:45 11:46 POC Glucose 267 H 498 H* 389 H* 11/13/22 11/13/22 11/13/22 11:48 13:07 13:08 POC Glucose 387 H* 435 H* 444 H* 11/13/22 11/13/22 11/13/22 14:22 16:34 17:51 POC Glucose 367 H* 213 H 263 H 11/13/22 11/13/22 11/13/22 18:55 19:58 21:04 POC Glucose 239 H 202 H 132 H 11/13/22 11/13/22 11/14/22 22:04 23:13 04:01 POC Glucose 129 H 106 H 113 H 11/14/22 07:31 POC Glucose 157 H OUTPATIENT ANTIDIABETIC REGIMEN: * N/A - new diagnosis HbA1c: 15% (11/13/22) ASSESSMENT: 11/14/22: * Insulin infusion transitioned off last evening after receiving 40 units of basal insulin * Fasting BSG of 157 mg/dL, which is significantly improved - will plan for once daily basal to facilitate transition to home * Still will err on cautious side in case initial 40 units is too much - will give 75% of that this morning with additional HS dose if needed * Plan is likely for discharge today w/ once daily basal insulin and metformin 11/13/22: * DV is a 77 year old female who presented to ED on 11/12/22 w/ complaints of persistent thirst and increased urinary frequency * BSG at time of presentation was 1000 mg/dL w/ elevated anion gap 17, pH: 7.32, and normal serum bicarb * Serum osmolarity calculated to be 333 mOsm/kg at time of presentation * Apparent HHS based on this presentation * Insulin infusion and IV fluids initiated in ED * BSGs have trended down (<300 mg/dL) so will plan to begin transitioning off insulin infusion. Will give ~0.33 unit/kg basal dose x 1 now. * In light of continued upward trend - will give additional 15 units this afternoon to ~weight-based stress of 3 basal dosing per calc. * Dextrose-containing fluids discontinued PLAN FOR INPATIENT GLYCEMIC CONTROL: * Basal insulin * Lantus 30 units SC x 1 this morning * Lantus 20 units SC x 1 with lunch * Bolus insulin * NovoLog per scale ACHS or Q6hrs while NPO * Goal Range: Low 110 mg/dL - High 140 mg/dL * Correction Factor: 20 mg/dL/unit * Nutritional / Prandial insulin per carb ratio of 1 unit per 5 grams CHO consumed
--- NOTE | 2022-11-14 09:36 | Medical Student Progress Note ---
Date of Service November 14, 2022 Assessment & Plan (1) Acute hyperglycemia: Plan: Meli is a 77-year-old female with a PMHx of HTN, HLD, prediabetes, stroke s/p left stent placement (2019), and macular degeneration who was admitted on 11/12/22 for concerns of hyperglycemia. Acute hyperglycemia, concern for HHS, new DM2 diagnosis - No previous episodes of hypoglycemia. Meli was informed that she was hyperglycemic at last routine visit with outpatient provider. - Ion gap closed. Glucose readings have been under 200 since 21:04 - most recently 157. Patient transitioned from IV insulin to injection. Glucose at 340 following breakfast. - BSG glucometer checks every hour. - CMP, Mg, phosphorus, VBG checks daily. - Phosphorous at 2.8. - Replete electrolytes per protocol. -Got 70 units of insulin over the last 24 hours. -Will be sent home on 30 units of long actin insulin and 10 units per meal (30 total) of short acting insulin. -Follow up with PCP. Aortic stenosis, new diagnosis - Echo 11/14/22 confirmed aortic stenosis. "Trileaflet, calcified, thickened, with reduced cusp excursion, Mild aortic regurgitation. Mild to moderate valvular aortic stenosis." - Showed trace tricuspid regurgitation. - Follow up with PCP. Hepatic Lobe Mass, new diagnosis - CT Abd/pelvic 11/13/22: "5.7 x 4.2 cm segment 7/8 right hepatic lobe mass with peripheral enhancement. This is suspicious for a neoplastic process and could reflect a primary hepatic malignancy. Metastatic disease is also within the differential. Liver protocol MRI with and without contrast is recommended for further evaluation." -Discussed results of the CT with patient and her two sons. They were agreeable to a liver biopsy pending stabilization. Interventional radiology will not be available until Thursday and will follow up with Meli as an outpatient. -not set up yet -Coagulation within normal limits. 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 Reactive transaminitis, resolved - Etiology likely secondary to HHS. RYAN, likely prerenal, resolved -Likely prerenal due to reported dehydration, BUN/creatinine ratio. -11/14/22: Creatinine = 0.89 (1.07 at baseline). BUN = 20 (16 at baseline). -Continue oral hydration. Hypertension, chronic, stable. -On irbesartan-HCTZ 300-25 mg, metoprolol ER 100 mg, amlodipine 5 mg. -Continue to hold Irbesartan-HCTZ and amlodipine. -hold until PCP f/u or restart -Follow up with PCP. Hypercholesterolemia, chronic, stable. -On atorvastatin 40 mg. -Follow up with PCP. Code: Full code Dispo: PCU FEN/GI: DM2 diet DVT Prophylaxis: Lovenox 40 mg q24h Held home meds: irbesartan-HCTZ and amlodipine PT/OT: No Consults: Diabetes education Case Management: No Admission and Anticipated Discharge Date Admission Date: November 12, 2022 Ann Garrison is a 77-year-old female with a PMHx of HTN, HLD, prediabetes, stroke s/p left stent placement (2019), and macular degeneration who was admitted on 11/12/22 for concerns of hyperglycemia. She went to the ED at the advice of her grandson who is a nurse, but does not remember why he advised her to come in. Over the past week, she has had polyuria and polydipsia. She has not been having respiratory symptoms, abdominal pains, dysuria, rashes, back pain, or confusion. She had not noticed any weight loss. Meli reported having little feeling in her right hand, secondary to a prior stroke. She has no other concerns. She last saw her PCP in July and was told that her glucose was borderline. The patient was hydrated with a liter of normal saline IV.She was given 10 units of IV regular insulin and 10 units of SC regular insulin. Today, she does not have any concerns other than being thirsty. She has no abdominal pain, respiratory, or urinary symptoms. She has [facility] insurance and is not concerned about having access to any medications she will need to be on after leaving the hospital. Today (11/14/22), she is feeling great. She was able to sleep well and had pancakes for breakfast. She mentioned that prior to this morning, she was experiencing "head fuzziness" and blurry vision that have resolved. She is no longer experiencing polyuria or polydipsia. She was able to connect with the DM educator. She said that the information was helpful but overwhelming in the quantity. Her family is working on getting her set up with a DexCom. She is aware that she should follow up with interventional radiology on 11/17/22. Home Medications Medication Instructions Recorded Confirmed amlodipine 5 mg tablet 5 mg PO DAILY 11/12/22 11/12/22 ascorbic acid (vitamin C) 500 mg 0 mg PO DAILY 11/12/22 11/12/22 tablet aspirin 81 mg tablet,delayed 81 mg PO DAILY 11/12/22 11/12/22 release atorvastatin 80 mg tablet 80 mg PO DAILY 11/12/22 11/12/22 cholecalciferol (vitamin D3) 25 25 mcg PO DAILY 11/12/22 11/12/22 mcg (1,000 unit) tablet irbesartan 150 2 tab PO DAILY 11/12/22 11/12/22 mg-hydrochlorothiazide 12.5 mg tablet metoprolol succinate 100 mg 100 mg PO DAILY 11/12/22 11/12/22 tablet,extended release 24 hr zinc gluconate 50 mg tablet 0 mg PO DAILY 11/12/22 11/12/22 Review of Systems Review of Systems: See HPI for pertinent positives & negatives. A total of 10 systems reviewed and were otherwise negative. Physical Exam Physical Exam: Vital Signs Temp 36.7 C 11/14/22 07:26 Pulse 78 11/14/22 07:26 Resp 18 11/14/22 07:26 BP 103/65 11/14/22 07:26 Pulse Ox 96 11/14/22 07:26 O2 Del Method Room Air 11/14/22 07:26 O2 Flow Rate 97 11/13/22 08:00 Intake & Output 11/13/22 11/14/22 11/14/22 18:59 06:59 18:59 Intake Total 1568.507 / 2585.43 1 1016.924 / 2585.43 1 Balance 1568.507 / 2585.43 1 1016.924 / 2585.43 1 Weight 75.16 kg 75.16 kg Intake: IV 1318.507 / 2335.43 1 1016.924 / 2335.43 1 Insulin Regula r 250 units In 43.507 / 60.431 16.924 / 60.431 Sodium Chlorid e 0.9% 247.5 ml @ 3 UNITS/HR 3 m ls/hr IV .Q24H [facility] Rx#:[id number] Potassium Chlo ride 40 meq In 1020 / 1020 D5w and 1/2Nss 1,000 ml @ 150 mls/hr IV .Q6H [facility] Rx#: [id number] Potassium Phos phate 15 mmol In 255 / 255 Sodium Chlorid e 0.9% 250 ml @ 88 mls/hr IV O NE ONE Rx#: [id number] Sodium Chlor 0 .45% + 20Meq KCl 1000 / 1000 20 meq In 1,00 0 ml @ 150 mls/hr IV .Q6H40M [facility] Rx#:[id number] Oral 250 / 250 Other: # Unmeasured Voi ds 1 Weight: 164 lbs (184 lbs 04/2020) General: No acute distress HEENT: PERRLA. Normal conjunctiva, anicteric sclera. Oropharynx normal. Dry mucus membranes. Respiratory: Normal respiratory effort, CTABL. Cardiovascular: RRR. Systolic murmur appreciated over the right second intercostal space. MSK: No obvious deformities. Dry skin appreciated over the calves and feet bilaterally. No ulcers appreciated. No pitting edema. Sensation to pressure intact in the b/l lower extremities. Neuro: Alert and oriented x3. Psych: Affect less restricted than yesterday. Results & Data Vital Signs (Past 12 Hours) Vital Signs Temp Pulse Pulse Resp BP Pulse Ox O2 Del Method 11/14/22 04:03 36.7 C 77 19 113/79 94 Room Air 11/14/22 01:10 37.6 C H 65 18 122/74 97 Room Air 11/13/22 23:00 62 11/13/22 23:22 36.8 C 68 18 113/74 96 Room Air Laboratory Results Abnormal Lab Results 11/13/22 11/13/22 11/13/22 09:22 09:43 10:55 WBC RBC Hgb Hct MCV MCH MCHC RDW Std Deviation RDW Coeff of Bin Plt Count MPV VBG pH 7.39 7.38 POC Glucose 267 H 11/13/22 11/13/22 11/13/22 11:45 11:46 11:48 WBC RBC Hgb Hct MCV MCH MCHC RDW Std Deviation RDW Coeff of Bin Plt Count MPV VBG pH POC Glucose 498 H* 389 H* 387 H* 11/13/22 11/13/22 11/13/22 13:07 13:08 14:22 WBC RBC Hgb Hct MCV MCH MCHC RDW Std Deviation RDW Coeff of Bin Plt Count MPV VBG pH POC Glucose 435 H* 444 H* 367 H* 11/13/22 11/13/22 11/13/22 16:34 17:51 18:55 WBC RBC Hgb Hct MCV MCH MCHC RDW Std Deviation RDW Coeff of Bin Plt Count MPV VBG pH POC Glucose 213 H 263 H 239 H 11/13/22 11/13/22 11/13/22 19:58 21:04 22:04 WBC RBC Hgb Hct MCV MCH MCHC RDW Std Deviation RDW Coeff of Bin Plt Count MPV VBG pH POC Glucose 202 H 132 H 129 H 11/13/22 11/14/22 11/14/22 23:13 04:01 06:19 WBC 7.25 RBC 4.52 Hgb 13.7 Hct 39.4 MCV 87.2 MCH 30.3 MCHC 34.8 RDW Std Deviation 39.8 RDW Coeff of Bin 12.6 Plt Count 170 MPV 10.9 VBG pH POC Glucose 106 H 113 H 11/14/22 07:31 WBC RBC Hgb Hct MCV MCH MCHC RDW Std Deviation RDW Coeff of Bin Plt Count MPV VBG pH POC Glucose 157 H -CBC WNL -CMP -BUN & Creatinine are back at baseline -Bun & Creatinine ratio continue to resolve, current at 22.5 -Glucose: From 10 PM - 7:30AM her sugars were below 160 Lab from 9 AM: 340 -Phos wnl, 2.8 -PT/INR (Bc of liver mass) -PT 11.2 -INR - 1.0 * INR levels that are too low may mean you are at risk for dangerous blood clots. * INR levels that are too high may mean you are at risk for dangerous bleeding. Diagnostic Findings Echo 11/14/22 Normal LV function. Mild to moderate calcific aortic stenosis. Left Ventricle: Mild concentric LVH. EF: 60-65% Left ventricular wall motion is normal. Right ventricle: grossly normal size. RV systolic function is normal. Atrial Size is normal bilaterally. No ASD. Aortic Value: trileaflet, calcified, thickened, with reduced cusp excursion, Mild aortic regurgitation. Mild to moderate valvular aortic stenosis. Pulmonic Value: Not well virtualized. Mitral value: grossly normal. Tricuspid: Trace tricuspid regurgitation. Great vessels: normal in size Pericardium/Pleural: no pericardial effusion Medications Administered Current Inpatient Medications Aspirin (Aspirin 81 Mg Ectab) 81 mg PO DAILY [facility] Stop: 12/13/22 08:59 Last Admin: 11/13/22 08:53 Dose: 81 mg Atorvastatin Calcium (Atorvastatin 40 Mg Tab) 80 mg PO DAILY [facility] Stop: 12/13/22 08:59 Last Admin: 11/13/22 08:53 Dose: 80 mg Dextrose (Dextrose 50% 50 Ml Syringe) 25 - 50 ml IV UD PRN; Protocol PRN Reason: Hypoglycemia Protocol Stop: 12/12/22 19:29 Enoxaparin Sodium (Enoxaparin Inj 30 Mg/0.3 Ml Syr) 30 mg SQ QAM [facility] Stop: 12/13/22 08:59 Last Admin: 11/13/22 08:53 Dose: 30 mg Glucagon (Glucagon For Inj 1 Mg Vial) 1 mg IM UD PRN; Protocol PRN Reason: Hypoglycemia Protocol Stop: 12/12/22 19:29 Glucose (Glucose 40% Gel 15 Gm Tube) 15 - 30 gm PO UD PRN; Protocol PRN Reason: Hypoglycemia Protocol Stop: 12/12/22 19:29 Glucose (Glucose 10 Tab/Tube) 4 - 8 tab PO UD PRN; Protocol PRN Reason: Hypoglycemia Protocol Stop: 12/12/22 19:29 Insulin Aspart (Insulin Aspart Per Unit Charge) 0 units SC A[facility]S [facility] Stop: 12/14/22 03:59 Last Admin: 11/14/22 04:02 Dose: Not Given Metoprolol Succinate (Metoprolol Succ 50mg Ext Rel Tab) 100 mg PO DAILY [facility] Stop: 12/13/22 08:59 Last Admin: 11/13/22 08:53 Dose: 100 mg Miscellaneous (Carbohydrates For Hypoglycemia ) 15 - 30 gm PO UD PRN PRN Reason: Hypoglycemia Treatment Stop: 12/12/22 19:29 Miscellaneous Information (Pharmacy Glycemic Mgmt Consult) 1 each N/A UD PRN PRN Reason: Consult Stop: 12/12/22 18:51
[2022-11-14 09:52] LABS: BUN Creatinine Ratio 22.5 (10-20); Calcium 8.8 mg/dl (8.6-10.3); Creatinine Clr Calc Pharmacy 54.2 ml/min; Est GFR (African American) 73.5 ml/min; Est GFR (Non-African American) 63.4 ml/min; Magnesium 1.8 mg/dl (1.7-2.4); Phosphorus 2.8 mg/dl (2.5-4.9); Potassium 3.5 mmol/L (3.5-5.1)
[2022-11-14 10:30] LABS: Prothrombin Time 11.2 Seconds (9.0-12.0)
--- NOTE | 2022-11-14 12:36 | Med Student Discharge Summary ---
Date of Service November 14, 2022 Admission HPI Per Admitting Provider Meli is a 77-year-old female who presents to the ED with a chief complaint of hyperglycemia. The patient states that over the past week or so she has had frequent urination and thirst. She presented to her outpatient provider, who measured her BSG which was high. She states that the last time she was seen by him, she was told that she was borderline diabetes in July. The patient has no other complaints. Denies any sources of infection or possible infections. No respiratory symptoms. No abdominal pains. No urinary symptoms. No rashes or cellulitis. Vital signs are normal. CBC did not show leukocytosis or anemia. The BUN is 49 and creatinine is 2.19. This is at least double what it was on her previous labs about 2 years ago. Creatinine previously was 1.07. BSG today is 1000. Total bilirubin is slightly elevated at 1.6. This is up from 0.7 previously. VBG shows an acidosis with a pH of 7.32. The patient was hydrated with a liter of normal saline IV. She was given 10 units of IV regular insulin and 10 units of SC regular insulin. On admission, she continues to deny any prior infection, respiratory symptoms, abdominal pain, or urinary symptoms. She is accompanied by her daughter, who is at bedside and corroborates this account. ROS + for thirst only. Admission Exam (Per Admitting) Constitutional No acute distress. Eyes PERRLA. Normal conjunctiva, anicteric sclera. ENMT Oropharynx normal. Respiratory Normal respiratory effort, CTABL. Cardiovascular RRR without murmurs, gallops, or rubs. No edema. Gastrointestinal (Abdomen) Soft abdomen with normal bowel sounds heard on auscultation. Nontender x4 quadrants Neurologic Alert and oriented x3. Discharge Exam Weight: 164 lbs (184 lbs 04/2020) General: No acute distress HEENT: PERRLA. Normal conjunctiva, anicteric sclera. Oropharynx normal. Dry mucus membranes. Respiratory: Normal respiratory effort, CTABL. Cardiovascular: RRR. Systolic murmur appreciated over the right second intercostal space. MSK: No obvious deformities. Dry skin appreciated over the calves and feet bilaterally. No ulcers appreciated. No pitting edema. Sensation to pressure intact in the b/l lower extremities. Neuro: Alert and oriented x3. Psych: Affect somewhat restricted. Specialty Data Hospitalist Laboratory Results WBC 7.25 K/ul (4.8-10.8) 11/14/22 06:19 RBC 4.52 M/uL (4.20-5.40) 11/14/22 06:19 Hgb 13.7 g/dl (12.0-16.0) 11/14/22 06:19 Hct 39.4 % (37.0-47.0) 11/14/22 06:19 MCV 87.2 fL (80.0-100.0) 11/14/22 06:19 MCH 30.3 pg (25.0-34.0) 11/14/22 06:19 MCHC 34.8 g/dL (32.0-36.0) 11/14/22 06:19 RDW Std Deviation 39.8 fL (36.4-46.3) 11/14/22 06:19 RDW Coeff of Bin 12.6 % (11.5-14.5) 11/14/22 06:19 Plt Count 170 K/uL (130-400) 11/14/22 06:19 MPV 10.9 fL (9.4-12.4) 11/14/22 06:19 Immature Gran % (Auto) 0.4 % 11/13/22 03:51 Neut % (Auto) 63.4 % 11/13/22 03:51 Lymph % (Auto) 26.8 % 11/13/22 03:51 Leon % (Auto) 7.4 % 11/13/22 03:51 Eos % (Auto) 1.5 % 11/13/22 03:51 Baso % (Auto) 0.5 % 11/13/22 03:51 Neut # (Auto) 6.28 K/uL (1.40-6.50) 11/13/22 03:51 Lymph # (Auto) 2.65 K/uL (1.2-3.4) 11/13/22 03:51 Leon # (Auto) 0.73 K/uL (0.11-0.59) H 11/13/22 03:51 Eos # (Auto) 0.15 K/uL (0-0.50) 11/13/22 03:51 Baso # (Auto) 0.05 K/uL (0-0.2) 11/13/22 03:51 Immature Gran # (Auto) 0.04 K/uL (0.01-0.20) 11/13/22 03:51 PT 11.2 Seconds (9.0-12.0) 11/14/22 09:30 INR 1.0 (0.9-1.1) 11/14/22 09:30 VBG pH 7.38 (7.36-7.41) 11/13/22 10:55 VBG pCO2 58 mmHg (38-50) H 11/12/22 17:26 VBG pO2 38 mmHg 11/12/22 17: VBG HCO3 30 mmol/L 11/12/22 17: VBG O2 Saturation 61.2 % 11/12/22 17: VBG Base Excess 2.4 mEq/L 11/12/22 17: Sodium 137 mmol/L (136-145) 11/14/22 09:05 Potassium 3.5 mmol/L (3.5-5.1) 11/14/22 09:05 Chloride 103 mmol/L (98-107) 11/14/22 09:05 Carbon Dioxide 23 mmol/L (21-32) 11/14/22 09:05 Anion Gap 11 (3-11) 11/14/22 09:05 BUN 20 mg/dl (6-23) 11/14/22 09:05 Creatinine 0.89 mg/dl (0.6-1.2) 11/14/22 09:05 Est Cr Clr Drug Dosing 54.2 ml/min 11/14/22 09:05 Est GFR ( Amer) 73.5 ml/min 11/14/22 09:05 Est GFR (Non-Af Amer) 63.4 ml/min 11/14/22 09:05 BUN/Creatinine Ratio 22.5 (10-20) H 11/14/22 09:05 Glucose 340 mg/dl (70-99(Fasting)) H* 11/14/22 09:05 POC Glucose 321 mg/dl (70-99) H* 11/14/22 11:39 Estimat Average Glucose 384 mg/dl 11/13/22 03:50 Hemoglobin A1c 15.0 % (4.5-5.6) H 11/13/22 03:50 Calcium 8.8 mg/dl (8.6-10.3) 11/14/22 09:05 Phosphorus 2.8 mg/dl (2.5-4.9) 11/14/22 09:05 Magnesium 1.8 mg/dl (1.7-2.4) 11/14/22 09:05 Total Bilirubin 0.9 mg/dl (0.2-1.0) D 11/13/22 03:50 AST 38 U/L (13-39) 11/13/22 03:50 ALT 39 U/L (7-52) 11/13/22 03:50 Alkaline Phosphatase 94 U/L (34-104) 11/13/22 03:50 Total Protein 6.4 gm/dl (6.0-8.3) 11/13/22 03:50 Albumin 3.9 gm/dl (3.4-5.0) 11/13/22 03:50 Globulin 2.5 gm/dl (2.5-4.0) 11/13/22 03:50 Albumin/Globulin Ratio 1.6 (0.9-2) 11/13/22 03:50 Urine Color Yellow 11/12/22 20:06 Urine Appearance Clear (Clear) 11/12/22 20:06 Urine pH 5.0 (4.5-7.5) 11/12/22 20:06 Ur Specific Standish 1.031 (1.000-1.030) H 11/12/22 20:06 Urine Protein Negative (Negative) 11/12/22 20:06 Urine Glucose (UA) 3+ (Negative) H 11/12/22 20:06 Urine Ketones 1+ (Negative) H 11/12/22 20:06 Urine Blood Negative (Negative) 11/12/22 20:06 Urine Nitrite Negative (Negative) 11/12/22 20:06 Urine Bilirubin Negative (Negative) 11/12/22 20:06 Urine Urobilinogen Negative (Negative) 11/12/22 20:06 Ur Leukocyte Esterase Negative (Negative) 11/12/22 20:06 SARS-CoV-2, RNA, NAAT NEGATIVE (NEGATIVE) 11/12/22 18:33 Impressions Abdomen/Pelvis CT 11/13/22 07:00 CT OF THE ABDOMEN AND PELVIS WITH CONTRAST CLINICAL HISTORY: new onset severe diabetes, weight loss ?pancreatic COMPARISON STUDY: None. TECHNIQUE: Following IV administration of 83 mL of Optiray, axial images of the abdomen and pelvis were obtained from the lung bases to the proximal femurs. Images were reviewed in the axial, sagittal, and coronal planes. IV contrast was administered without complication. Automated exposure control was utilized for the study. A dose lowering technique was utilized adhering to the principles of ALARA. CT DOSE: 543.82 mGy.cm FINDINGS: Lung bases are unremarkable. No pneumatosis, free air or portal venous gas is present. Liver morphology is normal. Note is made of a subtle 5.7 x 4.2 cm segment 7/8 right hepatic lobe lesion on axial image 81 of 461. This has peripheral enhancement. This splays the middle and right hepatic veins and may narrow the intrahepatic portion of the IVC. A small adjacent hypodense focus is noted. No additional hepatic lesions are present. There is no biliary or pancreatic ductal dilatation. Spleen, adrenal glands are unremarkable. There are a few renal cysts. There is mild pancreatic glandular atrophy. No pancreatic lesion is identified. There is no biliary or pancreatic ductal dilatation. There is no evidence for a bowel obstruction. The caliber and wall thickness of small and large bowel are normal. There is no ascites or lymphadenopathy. Infrarenal abdominal aorta is ectatic, measuring 2.4 cm. There are no acute fractures. No suspicious lesions within the visualized skeletal structures are present. IMPRESSION: 1. 5.7 x 4.2 cm segment 7/8 right hepatic lobe mass with peripheral enhancement. This is suspicious for a neoplastic process and could reflect a primary hepatic malignancy. Metastatic disease is also within the differential. Liver protocol MRI with and without contrast is recommended for further evaluation. 2. No pancreatic lesion. No pancreatic ductal dilatation. Mild pancreatic glandular atrophy. 3. No bowel obstruction. No bowel wall thickening. ACT 112: Positive. There are findings on this exam that require communication between the performing entity and the patient following Patient Test Result Information Act ([place] Act 112) guidelines. Electronically signed by: Tigre Chau M.D. 11/13/2022 1:18 PM Abdomen MRI 11/13/22 14:47 Exam(s): MRI ABDOMEN W/WO Contrast IV Amt: 10ml Eovist EXAM: MR Abdomen Without and With Intravenous Contrast CLINICAL HISTORY: Reason for exam: liver mass. TECHNIQUE: Multiplanar magnetic resonance images of the abdomen without and with intravenous contrast. CONTRAST: Patient received 10ml Eovist of IV contrast COMPARISON: None. FINDINGS: Lung bases: Unremarkable. No mass. No consolidation. Liver: Lobular mass redemonstrated within the liver on segment 7/8 with peripheral enhancement enhancement on early phase and some areas of minimal hypodensity within the center or delayed image. This corresponds to increased signal on diffusion images which may be associated with malignant processes such as cholangiocarcinoma. This measures 5.9 x 4.1 x 5.2 cm. Gallbladder and bile ducts: MRCP images reveal normal biliary system without intrahepatic biliary distention. No calcified stones. No ductal dilation. Pancreas: Unremarkable. No ductal dilation. No mass. Spleen: Unremarkable. No splenomegaly. Adrenals: Unremarkable. No mass. Kidneys and ureters: Right middle renal pole simple cyst measuring 14 mm. Otherwise normal right kidney. Left lower renal pole simple cyst measuring 2.3 x 2.4 cm. Additional tiny cysts within the left kidney measuring less than 4 mm. Otherwise normal left kidney. No hydronephrosis. Stomach and bowel: Unremarkable. No obstruction. Intraperitoneal space: Unremarkable. No significant fluid collection. Soft tissues: Unremarkable. Vasculature: Unremarkable. No abdominal aortic aneurysm. Lymph nodes: Unremarkable. No enlarged lymph nodes. Other findings: A metastatic process cannot be excluded. IMPRESSION: 1. Liver lesion within segment 7/8 concerning for malignant process such as cholangiocarcinoma, differential diagnosis including atypical inflammatory pseudotumor, metastatic metastatic process or cirrhosis and hepatocellular carcinoma. Clinical correlation recommended. 2. Tiny bilateral simple renal cysts with no follow-up imaging is recommended unless warranted by clinical presentation. Otherwise normal bilateral kidneys. 3. Normal biliary system. Electronically signed by: Zoie Vora MD 11/14/22 00:56 AM Discharge Data Consultations 11/12/22 17:55 ED Decision to Admit Stat Hospital Course (1) Acute hyperglycemia: Meli is a 77-year-old female with a PMHx of HTN, HLD, prediabetes, stroke s/p left stent placement (2019), and macular degeneration who was admitted on 11/12/22 for concerns of hyperglycemia. Acute hyperglycemia, concern for HHS, new DM2 diagnosis - No previous episodes of hypoglycemia. Meli was informed that she was hyperglycemic at last routine visit with outpatient provider. - Ion gap closed. Glucose readings have been under 200 since 21:04 - most recently 157. Patient transitioned from IV insulin to injection. Glucose at 340 following breakfast. - Hypophosphatemia resolved (2.8). - Received 70 units of insulin over the last 24 hours. - Will be sent home on 50 units of long actin insulin 500 mg Metformin. - Follow up with PCP. Aortic stenosis, new diagnosis - Echo 11/14/22 confirmed aortic stenosis. "Trileaflet, calcified, thickened, with reduced cusp excursion, Mild aortic regurgitation. Mild to moderate valvular aortic stenosis." - Trace tricuspid regurgitation. - Follow up with PCP. Hepatic Lobe Mass, new diagnosis - CT Abd/pelvic 11/13/22: "5.7 x 4.2 cm segment 7/8 right hepatic lobe mass with peripheral enhancement. This is suspicious for a neoplastic process and could reflect a primary hepatic malignancy. Metastatic disease is also within the differential. Liver protocol MRI with and without contrast is recommended for further evaluation." -Discussed results of the CT with patient and her two sons. They were agr eeable to a liver biopsy pending stabilization. -Meli will be seen as an outpatient, appointment date pending. -Coagulation within normal limits. PT = 11.2 seconds, INR = 1.0 -Follow up with PCP for rn long term care management recommendations. Reactive transaminitis, resolved - Etiology likely secondary to HHS. RYAN, likely prerenal, resolved -Likely prerenal due to reported dehydration, BUN/creatinine ratio. -11/14/22: Creatinine = 0.89 (1.07 at baseline). BUN = 20 (16 at baseline). -Continue oral hydration. Hypertension, chronic, stable. -On irbesartan-HCTZ 300-25 mg, metoprolol ER 100 mg, amlodipine 5 mg. -Follow up with PCP. Hypercholesterolemia, chronic, stable. -On atorvastatin 40 mg. -Follow up with PCP. (2) T2DM (type 2 diabetes mellitus): Discharge Plan Discharge Items Patient Disposition: Home - Self-Care Reason For Visit: NEW ONSET HYPERGLYCEMIA/DKA Discharge Diagnosis: Hyperosmolar Hyperglycemic State Liver Mass Activity: Per Instructions section Non-emergency contact: Primary Care Provider Call non-emergency contact if: you have any medication questions and your symptoms worsen Follow-up/Referrals: Lester Cali [Primary Care Provider] - 11/20/22 9:40 am (Follow up scheduled on 11/20/22 @ 9:40. Please call the office if you need to reschedule) Diet: Carb Consistent or DM2 Ambulatory Orders: IR biopsy liver CT (Routine) Timeframe: 3 Days Location: Determined by Patient Ordered By: Galen Sandhu Attending Provider Instructions: You were admitted to [facility] from 11/12 to 11/14 for very high blood sugar. You improved with IV fluids and IV insulin. You have a new diagnosis of severe Diabetes, which was found on blood work in the hospital (A1c is 15, which is very high). We had our family life educator meet with you while you were hospitalized. You also had a CT and MRI scan of your abdomen which showed a liver mass - we will need to follow up on this and we will need to do a biopsy. You will be discharged on 11/14. 1. You will need to measure your blood sugar in the morning as well as before every meal. You will need to take 50 units of Lantus (long-acting Insulin) every morning. You will also need to take Metformin 500mg every evening with dinner. 2. You will need to monitor the sugar in your diet, and try to keep it to a minimum. We recommend that you look into the Mediterranean diet - you can find the details of this diet online, and you should try to stick with this diet as best as you can. 3. You will need to follow up with our Radiology group in order to get a biopsy of your liver mass, in order to figure out if it is cancerous or not. Our group will reach out to you for the date, time and further details of this procedure. 4. Please follow up with your primary care physician within 1 week of discharge. Please continue to take all of your home medications as scheduled. We hope you continue to feel better. If your symptoms return, please do not hesitate to call your primary care physician and/or return to the ER. Pending Studies at Discharge: No Stand-Alone Forms: My [facility] [employer], Smoking Cessation Medications and DC Order Prescriptions: New metformin 500 mg tablet extended release 24 hr 500 mg PO PM Qty: 30 0RF Rx Instructions: take 1 tablet every day with dinner (DME) OneTouch Verio test strips Strip See Rx Instructions .Route Qty: 100 0RF Rx Instructions: As directed (DME) lancets [OneTouch Delica Lancets] 33 gauge misc See Rx Instructions .Route Qty: 100 0RF Rx Instructions: As directed insulin glargine [Lantus U-100 Insulin] 100 unit/mL solution 50 unit subcut DAILY Qty: 10 0RF (DME) insulin syringe-needle U-100 1 mL 31 gauge x 15/64" syringe See Rx Instructions .Route Qty: 100 0RF Rx Instructions: As directed Continued amlodipine 5 mg tablet 5 mg PO DAILY atorvastatin 80 mg tablet 80 mg PO DAILY irbesartan-hydrochlorothiazide 150-12.5 mg tablet 2 tab PO DAILY metoprolol succinate 100 mg tablet extended release 24 hr 100 mg PO DAILY aspirin 81 mg Tablet,Delayed Release (Dr/Ec) 81 mg PO DAILY cholecalciferol (vitamin D3) 25 mcg (1,000 unit) Tablet 25 mcg PO DAILY ascorbic acid (vitamin C) 500 mg Tablet 0 mg PO DAILY zinc gluconate 50 mg Tablet 0 mg PO DAILY Discharge Orders: Discharge Order (Routine); Ordered 11/14/22 Ordered By: Galen Ledezma Admission Data Admit Date/Time: 11/12/22 19:31 Attending Provider: Sabrina Ramírez Admit Provider: Osmar Carrera Primary Care Provider: Lester Cali Other Providers: Sourav Kent Other Interventions: Discharge Summary Assessment (RN) Last Done: 11/14/22 13:36 DC Date/Time DO NOT enter until pt leaves facility: 11/14/22 14:12
--- NOTE | 2022-11-14 14:37 | Discharge Summary ---
Date of Service November 14, 2022 Admission HPI Per Admitting Provider Meli is a 77-year-old female who presents to the ED with a chief complaint of hyperglycemia. The patient states that over the past week or so she has had frequent urination and thirst. She presented to her outpatient provider, who measured her BSG which was high. She states that the last time she was seen by him, she was told that she was borderline diabetes in July. The patient has no other complaints. Denies any sources of infection or possible infections. No respiratory symptoms. No abdominal pains. No urinary symptoms. No rashes or cellulitis. Vital signs are normal. CBC did not show leukocytosis or anemia. The BUN is 49 and creatinine is 2.19. This is at least double what it was on her previous labs about 2 years ago. Creatinine previously was 1.07. BSG today is 1000. Total bilirubin is slightly elevated at 1.6. This is up from 0.7 previously. VBG shows an acidosis with a pH of 7.32. The patient was hydrated with a liter of normal saline IV. She was given 10 units of IV regular insulin and 10 units of SC regular insulin. On admission, she continues to deny any prior infection, respiratory symptoms, abdominal pain, or urinary symptoms. She is accompanied by her daughter, who is at bedside and corroborates this account. ROS + for thirst only. Admission Exam Per Admitting Provider General: No acute distress HEENT: PERRLA. Normal conjunctiva, anicteric sclera. Oropharynx normal. Respiratory: Normal respiratory effort, CTABL. Cardiovascular: RRR without murmurs, gallops, or rubs. No edema. GI: Soft abdomen with normal bowel sounds heard on auscultation. Nontender x4 quadrants Neuro: Alert and oriented x3. Principal Diagnosis HHS Liver Mass Discharge Exam General: A&Ox3. NAD. Cooperative. HEENT: Atraumatic, normocephalic. Pulm: CTAB A&P. -wheezes, -rales, -rhonchi. Symmetrical chest rise. No increase work of breathing. No respiratory distress. Cardiac: RRR, 2/6 systolic murmur best auscultated at RUSB. Radial pulses intact and symmetrical. No LE edema. Abdominal: soft, non-tender, non-distended, BS x 4 Skin: warm, dry, no rash Discharge Data Allergies Allergy/AdvReac Type Severity Reaction Status Date / Time No Known Allergies Allergy Unverified 11/12/22 18:53 Consultations 11/12/22 17:55 ED Decision to Admit Stat Ordered Studies 11/13/22 07:00 CT Abd and Pelvis [CT abd pelvis IV con only] Routine 11/13/22 14:47 MRI Abdomen [MR abdomen wo/w con] Routine Hospital Course (1) Acute hyperglycemia: Meli is a 77-year-old female with a PMHx of HTN, HLD, prediabetes, stroke s/p left stent placement (2019), and macular degeneration who was admitted to [facility] from 11/12 - 11/14 for hyperosmolar hyperglycemic state. Was also found to have a liver mass on CT. HHS; New diagnosis of T2DM Initial BSG of 1000 with polydipsia/polyuria/abdominal pain and elevated osmolarity. Resolved within ~24 hours with insulin drip and IVFs. A1c 15.0 - new diagnosis of T2DM. - transitioned to SQ Insulin on 11/13 - required ~70 units of total insulin over the course of 24 hours, with maintenance of BSG mostly in mid-100s - life educator met several times with patient to discuss dietary modifications and insulin use - will start Metformin 500mg ER daily on discharge - will start Lantus 50 units daily on discharge - patient will do AC BSG checks at home - counseled on technique - defer further management to PCP Hepatic Lobe Mass - CT Abd/pelvic 11/13/22: "5.7 x 4.2 cm segment 7/8 right hepatic lobe mass with peripheral enhancement. This is suspicious for a neoplastic process and could reflect a primary hepatic malignancy. Metastatic disease is also within the differential. Liver protocol MRI with and without contrast confirmed lesion, and was negative for signs of metastasis. - Discussed results of the CT/MRI with patient and her two sons. They were agreeable to a liver biopsy pending stabilization. Interventional radiology will not be available until Thursday and will follow up with Meli outpatient. [id number] Aortic Stenosis Murmur appreciated on exam. With TTE showing [id number] . Patient is asymptomatic. - will need repeat TTE in 3-5 years, or earlier if develops symptoms - defer to PCP Reactive transaminitis, resolved Due to HHS, resolved with IVFs. RYAN, likely prerenal, resolved Due to HHS, resolved with IVFs. Hypertension, chronic, stable. - On irbesartan-HCTZ 300-25 mg, metoprolol ER 100 mg, amlodipine 5 mg - medications initially held in the hospital due to hypovolemia; will re-start meds on discharge Hypercholesterolemia, chronic, stable. - continue atorvastatin and baby Aspirin Total Time Total Time Spent Total Time Spent (In Minutes): 30 minutes Discharge Plan Discharge Items Patient Disposition: Home - Self-Care Reason For Visit: NEW ONSET HYPERGLYCEMIA/DKA Discharge Diagnosis: Hyperosmolar Hyperglycemic State Liver Mass Activity: Per Instructions section Non-emergency contact: Primary Care Provider Call non-emergency contact if: you have any medication questions and your symptoms worsen Follow-up/Referrals: Lester Cali [Primary Care Provider] - 11/20/22 9:40 am (Follow up scheduled on 11/20/22 @ 9:40. Please call the office if you need to reschedule) Diet: Carb Consistent or DM2 Ambulatory Orders: IR biopsy liver CT (Routine) Timeframe: 3 Days Location: Determined by Patient Ordered By: Galen Sandhu Attending Provider Instructions: You were admitted to [facility] from 11/12 to 11/14 for very high blood sugar. You improved with IV fluids and IV insulin. You have a new diagnosis of severe Diabetes, which was found on blood work in the hospital (A1c is 15, which is very high). We had our life educator meet with you while you were hospitalized. You also had a CT and MRI scan of your abdomen which showed a liver mass - we will need to follow up on this and we will need to do a biopsy. You will be discharged on 11/14. 1. You will need to measure your blood sugar in the morning as well as before every meal. You will need to take 50 units of Lantus (long-acting Insulin) every morning. You will also need to take Metformin 500mg every evening with dinner. 2. You will need to monitor the sugar in your diet, and try to keep it to a minimum. We recommend that you look into the Mediterranean diet - you can find the details of this diet online, and you should try to stick with this diet as best as you can. 3. You will need to follow up with our Radiology group in order to get a biopsy of your liver mass, in order to figure out if it is cancerous or not. Our group will reach out to you for the date, time and further details of this procedure. 4. Please follow up with your primary care physician within 1 week of discharge. Please continue to take all of your home medications as scheduled. We hope you continue to feel better. If your symptoms return, please do not hesitate to call your primary care physician and/or return to the ER. Pending Studies at Discharge: No Stand-Alone Forms: My [facility], Smoking Cessation Medications and DC Order Prescriptions: New metformin 500 mg tablet extended release 24 hr 500 mg PO PM Qty: 30 0RF Rx Instructions: take 1 tablet every day with dinner (DME) OneTouch Verio test strips Strip See Rx Instructions .Route Qty: 100 0RF Rx Instructions: As directed (DME) lancets [OneTouch Delica Lancets] 33 gauge misc See Rx Instructions .Route Qty: 100 0RF Rx Instructions: As directed insulin glargine [Lantus U-100 Insulin] 100 unit/mL solution 50 unit subcut DAILY Qty: 10 0RF (DME) insulin syringe-needle U-100 1 mL 31 gauge x 15/64" syringe See Rx Instructions .Route Qty: 100 0RF Rx Instructions: As directed Continued amlodipine 5 mg tablet 5 mg PO DAILY atorvastatin 80 mg tablet 80 mg PO DAILY irbesartan-hydrochlorothiazide 150-12.5 mg tablet 2 tab PO DAILY metoprolol succinate 100 mg tablet extended release 24 hr 100 mg PO DAILY aspirin 81 mg Tablet,Delayed Release (Dr/Ec) 81 mg PO DAILY cholecalciferol (vitamin D3) 25 mcg (1,000 unit) Tablet 25 mcg PO DAILY ascorbic acid (vitamin C) 500 mg Tablet 0 mg PO DAILY zinc gluconate 50 mg Tablet 0 mg PO DAILY Discharge Orders: Discharge Order (Routine); Ordered 11/14/22 Ordered By: Galen Ledezma Admission Data Admit Date/Time: 11/12/22 19:31 Attending Provider: Sabrina Ramírez Admit Provider: Osmar Carrera Primary Care Provider: Lester Cali Other Providers: Sourav Kent Other Interventions: Discharge Summary Assessment (RN) Last Done: 11/14/22 13:36 Supervising Physician Co-Signing Physician Notes Resident Physician Supervision Note: I independently interviewed and examined the patient and verified the mckeon history and physical, reviewed labs and image studies and agree with resident findings and care plan. Resident Activity Tracking Resident Involvement: Resident Care Provided Care Provided: Adult [facility]
== END 2022-11-14 14:12 | disposition home or self-care (01) ==
LOC: ED 15:44 → 2S 15:44 → SUATTDRO 19:31 → 2S 20:55

== ENCOUNTER 2023-02-01 15:41 | Observation (INO) ==
[~2023-02-01 15:41] MED LIST: SODIUM CHLORIDE 0.9% 1000ML 1,000 ML IV ONE
[2023-02-01] MEDS ORDERED: IOVERSOL 350 MG 125mL Prefilled Syringe IV ONE (15:45)
--- NOTE | 2023-02-01 15:55 | Emergency Department Note ---
Impression & Plan Weakness, Fever, Leukopenia, Acute hyponatremia, Acute hypokalemia ED Provider Note NAME: BAYRON ZEPEDA AGE: 77 SEX: F : 1945 ARRIVES VIA: Ambulance INFORMANT: Patient ED PROVIDER(S): Booker Delgado DO CHIEF COMPLAINT: not feeling well HPI: Patient is a 77-year-old female with a past medical history of diabetes, liver mass, CAD, hypertension and hyperlipidemia the presents to the ER brought in by EMS. She was last known well was somewhere around 8 AM this morning when her niece saw her to put eyedrops in her eye. She comes in today via EMS and she notes that she just is not feeling well. She admits to feeling cold but denies everything else. She denies any weakness or numbness in her arms or legs. No headache or change in vision. No chest pain or shortness of breath. No dysuria, urgency, or frequency. Daughter notes that when she got there she was unsteady and very weak and feeling hot. Per EMS report she had right-sided facial droop and right arm weakness. PAST MEDICAL HISTORY:See Below PAST SURGICAL HISTORY:See Below FAMILY HISTORY:See Below SOCIAL HISTORY:See Below HOME MEDICATIONS:See Below ALLERGIES:See Below VITALS:See Below PHYSICAL EXAMINATION: GENERAL: Sitting up in bed, alert, well appearing, well nourished, no distress, non-toxic EYE EXAM: normal conjunctiva. PERRL and EOM's intact. OROPHARYNX: no exudate, no erythema, lips, buccal mucosa, and tongue normal and mucous membranes are moist NECK: supple, no nuchal rigidity, no adenopathy, non-tender LUNGS: Clear to auscultation. Normal chest wall mechanics HEART: no murmurs, S1 normal and S2 normal ABDOMEN: abdomen soft, non-tender, normo-active bowel sounds, no masses, no rebound or guarding. BACK: Back is symmetrical on inspection and there is no deformity, no midline tenderness, no CVA tenderness. SKIN: no rashes and no bruising UPPER EXTREMITIES: upper extremities are grossly normal. LOWER EXTREMITIES: No pitting edema. NEURO EXAM: Normal sensorium, cranial nerves II-XI intact, normal speech, no weakness of arms, no weakness of legs. No drift. Finger to nose intact. Gross se nsation intact. MEDICAL DECISION MAKING: Patient is a 77-year-old female who presents ER was brought in by EMS for stroke alert per report from EMS she had right-sided weakness as well as a facial droop with last known well 8 AM. Upon arrival patient is completely awake alert and oriented. She notes that she has just not been feeling well since this past . She admits to right arm weakness but this is old and there is nothing new. She has no other complaints other than just feeling weak. IV was established blood work was obtained. External records reviewed. Labs show leukopenia 3.5 thousand. No anemia. Mild thrombocytopenia at 106. Hyponatremia 129. Mild hypokalemia 3 2. T. bili at 1.4. Magnesium low at 1.4. UA was clean. Patient was given IV fluids and IV Rocephin. CT angios of the head and neck were negative and unchanged from previous. Chest x-ray was clean. 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 Was given Rocephin initially to treat Lyme. Was admitted to the hospitalist. Will need Doxy likely for coverage for possible anaplasmosis but will defer to the hospitalist. Triage Nursing notes reviewed. Limited review of prior medical records performed Vital Signs: reviewed and remarkable for no significant abnormalities Differential diagnosis: Differential Diagnosis includes but is not limited to ischemic Stroke, hem orrhagic stroke, bells palsy, mass, neoplasm, migraine headache, seizure, subarachnoid hemorrhage, TIA, and transient global amnesia. ER treatment provided: See below Diagnostics interpreted by me include EKG and cardiac monitoring as listed below: -Cardiac Monitoring: An order was placed for continuous cardiac monitoring. The monitor shows a rate of 80 with sinus rhythm. -ECG: Sinus tachycardia rate of 100 Normal axis No PVCs ST depressions V4 through V6 as well as the inferior leads which is new in V4 through V6 in comparison to previous -Laboratory studies:Interpreted by me as stated above in MDM and shown below. Imaging studies: Xrays: As interpreted by me: Portable AP upright 1 view of the chest shows no focal CTs show: CT angios of the head and neck showed no acute pathology Consultation(s): As described in MDM Procedures:none Critical Care: None Past Med/Surg History Medical History (Updated 02/01/23 @ 21:00 by Booker Delgado DO) Acute dehydration Acute hyperglycemia Acute kidney injury CVA (cerebral vascular accident) High cholesterol Hyperosmolar hyperglycemic state (HHS) Hypertension Macular degeneration T2DM (type 2 diabetes mellitus) Surgical History (Updated 11/13/22 @ 09:39 by Kristi Harrington) H/O tubal ligation S/P coronary artery stent placement Social History Smoking Status: Former smoker Second Hand Exposure: No; Do You Dip or Chew Tobacco: No; Hx Alcohol Use: No Hx Substance Use: No Preferred Language: Tamazight Communication Ability: Effective [employer] Required: No Beliefs That Will Affect Care: None Current Living Situation: Alone Feels Safe at Home: Yes Allergies Allergies Allergy/AdvReac Type Severity Reaction Status Date / Time No Known Allergies Allergy Unverified 02/01/23 16:42 Home Meds Home Medications Medication Instructions Recorded Confirmed amlodipine 5 mg tablet 5 mg PO DAILY 11/12/22 02/01/23 ascorbic acid (vitamin C) 500 mg 0 mg PO DAILY 11/12/22 02/01/23 tablet aspirin 81 mg tablet,delayed 81 mg PO DAILY 11/12/22 02/01/23 release cholecalciferol (vitamin D3) 25 25 mcg PO DAILY 11/12/22 02/01/23 mcg (1,000 unit) tablet irbesartan 150 2 tab PO DAILY 11/12/22 02/01/23 mg-hydrochlorothiazide 12.5 mg tablet metoprolol succinate 100 mg 100 mg PO DAILY 11/12/22 02/01/23 tablet,extended release 24 hr zinc gluconate 50 mg tablet 0 mg PO DAILY 11/12/22 02/01/23 atorvastatin 40 mg tablet 40 mg PO DAILY 02/01/23 02/01/23 insulin glargine 100 unit/mL 20 unit subcut QPM 02/01/23 02/01/23 subcutaneous solution (Lantus U-100 Insulin) metformin 500 mg tablet,extended 250 mg PO QPM 02/01/23 02/01/23 release 24 hr metformin 500 mg tablet,extended 500 mg PO QAM 02/01/23 02/01/23 release 24 hr Previous Rx's Medication Instructions Recorded blood sugar diagnostic (OneTouch #100 ea 11/14/22 Verio test strips) insulin syringe-needle U-100 1 mL #100 ea 11/14/22 31 gauge x 15/64" lancets 33 gauge (OneTouch Delica #100 ea 11/14/22 Lancets) Results & Data (ED) Vital Signs Vital Signs - 24 hr 02/01/23 16:00 02/01/23 16:05 02/01/23 16:05 Temperature 38.1 C H Temperature Source Oral Pulse Rate Pulse Rate [Right Apical] 98 H Pulse Rhythm [Right Apical] Regular Pulse Strength [Right Apical] Normal Respiratory Rate 17 Respiratory Effort / Characteristics Non-Labored Respiratory Depth Normal Respiratory Pattern Regular Blood Pressure [Right Arm] 140/77 Blood Pressure Mean [Right Arm] 98 Blood Pressure Position [Right Arm] Semi-fowlers Pulse Oximetry 99 91 Oxygen Delivery Method Room Air Room Air Sepsis Recent Fever Within 48 Hours No Sepsis New/Unexplained Change in Mental Status N/A Sepsis Action Taken by Nursing No Action Required 02/01/23 16:15 02/01/23 17:30 Temperature Temperature Source Pulse Rate 99 H Pulse Rate [Right Apical] 96 H Pulse Rhythm [Right Apical] Regular Pulse Strength [Right Apical] Normal Respiratory Rate 18 Respiratory Effort / Characteristics Non-Labored Respiratory Depth Normal Respiratory Pattern Regular Blood Pressure [Right Arm] 143/86 H Blood Pressure Mean [Right Arm] 105 Blood Pressure Position [Right Arm] Sitting Pulse Oximetry 94 Oxygen Delivery Method Room Air Sepsis Recent Fever Within 48 Hours Sepsis New/Unexplained Change in Mental Status Sepsis Action Taken by Nursing Laboratory Data 02/01/23 15:32 02/01/23 15:32 Lab Results 02/01/23 02/01/23 02/01/23 Range/Units 15:32 15:32 15:32 WBC 3.52 L (4.8-10.8) K/ul RBC 4.14 L (4.20-5.40) M/uL Hgb 12.6 (12.0-16.0) g/dl POC Hgb (12.0-16.0) g/dl Hct 36.0 L (37.0-47.0) % POC Hct (37-47) % MCV 87.0 (80.0-100.0) fL MCH 30.4 (25.0-34.0) pg MCHC 35.0 (32.0-36.0) g/dL RDW Std Deviation 40.4 (36.4-46.3) fL RDW Coeff of Bin 12.7 (11.5-14.5) % Plt Count 106 L (130-400) K/uL MPV 10.6 (9.4-12.4) fL Immature Gran % (Auto) 0.3 % Neut % (Auto) 80.6 % Lymph % (Auto) 11.1 % [place] % (Auto) 7.7 % Eos % (Auto) 0.0 % Baso % (Auto) 0.3 % Neut # (Auto) 2.84 (1.40-6.50) K/uL Lymph # (Auto) 0.39 L (1.2-3.4) K/uL [place] # (Auto) 0.27 (0.11-0.59) K/uL Eos # (Auto) 0.00 (0-0.50) K/uL Baso # (Auto) 0.01 (0-0.2) K/uL Immature Gran # (Auto) 0.01 (0.01-0.20) K/uL PT 11.9 (9.0-12.0) Seconds INR 1.1 (0.9-1.1) APTT 30.0 (21.0-31.0) Seconds PTT Ratio 1.1 POC Sodium (135-144) mmol/L Sodium 129 L (136-145) mmol/L POC Potassium (3.3-5.0) mmol/L Potassium 3.2 L (3.5-5.1) mmol/L POC Chloride (101-112) mmol/L Chloride 93 L (98-107) mmol/L Carbon Dioxide 26 (21-32) mmol/L POC Total CO2 (24-31) mmol/L Anion Gap 10 (3-11) POC Anion Gap (16-25) mmol/L POC BUN (7-18) mg/dl BUN 18 (6-23) mg/dl Creatinine 0.98 (0.6-1.2) mg/dl POC Creatinine (0.6-1.3) mg/dl Est Cr Clr Drug Dosing 51.1 ml/min Est GFR ( Amer) 65.4 ml/min Est GFR (Non-Af Amer) 56.4 ml/min BUN/Creatinine Ratio 18.4 (10-20) Glucose 129 H (70-99(Fasting)) mg/dl POC Glucose (other) (70-99) mg/dl Calcium 8.9 (8.6-10.3) mg/dl POC Ioniz Calcium [place] (1.12-1.32) mmol/l Magnesium 1.4 L (1.7-2.4) mg/dl Total Bilirubin 1.4 H (0.2-1.0) mg/dl AST 34 (13-39) U/L ALT 18 (7-52) U/L Alkaline Phosphatase 65 (34-104) U/L Troponin I High Sens 8.6 (0-14) pg/ml Total Protein 6.2 (6.0-8.3) gm/dl Albumin 3.9 (3.4-5.0) gm/dl Globulin 2.3 L (2.5-4.0) gm/dl Albumin/Globulin Ratio 1.7 (0.9-2) Urine Color Urine Appearance (Clear) Urine pH (4.5-7.5) Ur Specific [place] (1.000-1.030) Urine Protein (Negative) Urine Glucose (UA) (Negative) Urine Ketones (Negative) Urine Blood (Negative) Urine Nitrite (Negative) Urine Bilirubin (Negative) Urine Urobilinogen (Negative) Ur Leukocyte Esterase (Negative) Anaplasma Smear Lyme Disease IgG Ab (Negative) Lyme Disease IgM Ab (Negative) SARS-CoV-2, RNA, NAAT (NEGATIVE) 02/01/23 02/01/23 02/01/23 Range/Units 15:32 16:10 16:11 WBC (4.8-10.8) K/ul RBC (4.20-5.40) M/uL Hgb (12.0-16.0) g/dl POC Hgb 11.9 L (12.0-16.0) g/dl Hct (37.0-47.0) % POC Hct 35 L (37-47) % MCV (80.0-100.0) fL MCH (25.0-34.0) pg MCHC (32.0-36.0) g/dL RDW Std Deviation (36.4-46.3) fL RDW Coeff of Bin (11.5-14.5) % Plt Count (130-400) K/uL MPV (9.4-12.4) fL Immature Gran % (Auto) % Neut % (Auto) % Lymph % (Auto) % [place] % (Auto) % Eos % (Auto) % Baso % (Auto) % Neut # (Auto) (1.40-6.50) K/uL Lymph # (Auto) (1.2-3.4) K/uL [place] # (Auto) (0.11-0.59) K/uL Eos # (Auto) (0-0.50) K/uL Baso # (Auto) (0-0.2) K/uL Immature Gran # (Auto) (0.01-0.20) K/uL PT (9.0-12.0) Seconds INR (0.9-1.1) APTT (21.0-31.0) Seconds PTT Ratio POC Sodium 130 L (135-144) mmol/L Sodium (136-145) mmol/L POC Potassium 3.5 (3.3-5.0) mmol/L Potassium (3.5-5.1) mmol/L POC Chloride 88 L (101-112) mmol/L Chloride (98-107) mmol/L Carbon Dioxide (21-32) mmol/L POC Total CO2 26 (24-31) mmol/L Anion Gap (3-11) POC Anion Gap 20.0 (16-25) mmol/L POC BUN 18 (7-18) mg/dl BUN (6-23) mg/dl Creatinine (0.6-1.2) mg/dl POC Creatinine 1.1 (0.6-1.3) mg/dl Est Cr Clr Drug Dosing ml/min Est GFR ( Amer) ml/min Est GFR (Non-Af Amer) ml/min BUN/Creatinine Ratio (10-20) Glucose (70-99(Fasting)) mg/dl POC Glucose (other) 131 H (70-99) mg/dl Calcium (8.6-10.3) mg/dl POC Ioniz Calcium [place] 1.12 (1.12-1.32) mmol/l Magnesium (1.7-2.4) mg/dl Total Bilirubin (0.2-1.0) mg/dl AST (13-39) U/L ALT (7-52) U/L Alkaline Phosphatase (34-104) U/L Troponin I High Sens (0-14) pg/ml Total Protein (6.0-8.3) gm/dl Albumin (3.4-5.0) gm/dl Globulin (2.5-4.0) gm/dl Albumin/Globulin Ratio (0.9-2) Urine Color Urine Appearance (Clear) Urine pH (4.5-7.5) Ur Specific [place] (1.000-1.030) Urine Protein (Negative) Urine Glucose (UA) (Negative) Urine Ketones (Negative) Urine Blood (Negative) Urine Nitrite (Negative) Urine Bilirubin (Negative) Urine Urobilinogen (Negative) Ur Leukocyte Esterase (Negative) Anaplasma Smear See Comment Lyme Disease IgG Ab Negative (Negative) Lyme Disease IgM Ab Negative (Negative) SARS-CoV-2, RNA, NAAT (NEGATIVE) 02/01/23 02/01/23 Range/Units 16:20 16:30 WBC (4.8-10.8) K/ul RBC (4.20-5.40) M/uL Hgb (12.0-16.0) g/dl POC Hgb (12.0-16.0) g/dl Hct (37.0-47.0) % POC Hct (37-47) % MCV (80.0-100.0) fL MCH (25.0-34.0) pg MCHC (32.0-36.0) g/dL RDW Std Deviation (36.4-46.3) fL RDW Coeff of Bin (11.5-14.5) % Plt Count (130-400) K/uL MPV (9.4-12.4) fL Immature Gran % (Auto) % Neut % (Auto) % Lymph % (Auto) % [place] % (Auto) % Eos % (Auto) % Baso % (Auto) % Neut # (Auto) (1.40-6.50) K/uL Lymph # (Auto) (1.2-3.4) K/uL [place] # (Auto) (0.11-0.59) K/uL Eos # (Auto) (0-0.50) K/uL Baso # (Auto) (0-0.2) K/uL Immature Gran # (Auto) (0.01-0.20) K/uL PT (9.0-12.0) Seconds INR (0.9-1.1) APTT (21.0-31.0) Seconds PTT Ratio POC Sodium (135-144) mmol/L Sodium (136-145) mmol/L POC Potassium (3.3-5.0) mmol/L Potassium (3.5-5.1) mmol/L POC Chloride (101-112) mmol/L Chloride (98-107) mmol/L Carbon Dioxide (21-32) mmol/L POC Total CO2 (24-31) mmol/L Anion Gap (3-11) POC Anion Gap (16-25) mmol/L POC BUN (7-18) mg/dl BUN (6-23) mg/dl Creatinine (0.6-1.2) mg/dl POC Creatinine (0.6-1.3) mg/dl Est Cr Clr Drug Dosing ml/min Est GFR ( Amer) ml/min Est GFR (Non-Af Amer) ml/min BUN/Creatinine Ratio (10-20) Glucose (70-99(Fasting)) mg/dl POC Glucose (other) (70-99) mg/dl Calcium (8.6-10.3) mg/dl POC Ioniz Calcium [place] (1.12-1.32) mmol/l Magnesium (1.7-2.4) mg/dl Total Bilirubin (0.2-1.0) mg/dl AST (13-39) U/L ALT (7-52) U/L Alkaline Phosphatase (34-104) U/L Troponin I High Sens (0-14) pg/ml Total Protein (6.0-8.3) gm/dl Albumin (3.4-5.0) gm/dl Globulin (2.5-4.0) gm/dl Albumin/Globulin Ratio (0.9-2) Urine Color Yellow Urine Appearance Clear (Clear) Urine pH 5.5 (4.5-7.5) Ur Specific [place] <= 1.005 (1.000-1.030) Urine Protein Negative (Negative) Urine Glucose (UA) Negative (Negative) Urine Ketones Negative (Negative) Urine Blood Negative (Negative) Urine Nitrite Negative (Negative) Urine Bilirubin Negative (Negative) Urine Urobilinogen Negative (Negative) Ur Leukocyte Esterase Negative (Negative) Anaplasma Smear Lyme Disease IgG Ab (Negative) Lyme Disease IgM Ab (Negative) SARS-CoV-2, RNA, NAAT NEGATIVE (NEGATIVE) Administered Medications Discontinued Medications Acetaminophen (Acetaminophen 325 Mg Tab) 650 mg PO NOW STA Stop: 02/01/23 16:37 Last Admin: 02/01/23 16:52 Dose: Not Given Documented By: MATTHEW Acetaminophen (Acetaminophen 325 Mg Tab) Confirm Administered Dose 650 mg .ROUTE .STK-MED ONE Stop: 02/01/23 20:08 Last Admin: 02/01/23 20:13 Dose: Not Given Documented By: KAREN Acetaminophen (Acetaminophen 325 Mg Tab) 650 mg PO NOW STA Stop: 02/01/23 20:12 Last Admin: 02/01/23 20:12 Dose: 650 mg Documented By: KAREN Sodium Chloride (Nss 1000ml) 1,000 mls @ 999 mls/hr IV .Q1H1M ONE Stop: 02/01/23 16:38 Last Infusion: 02/01/23 20:13 Dose: 0 mls/hr Documented By: Admin: 02/01/23 16:47 Dose: 999 mls/hr Documented By: MATTHEW Ceftriaxone Sodium (Rocephin) 2,000 mg in 70 mls @ 140 mls/hr IV NOW STA Stop: 02/01/23 16:52 Last Infusion: 02/01/23 16:56 Dose: 0 mls/hr Documented By: Admin: 02/01/23 16:48 Dose: 140 mls/hr Documented By: MATTHEW Sodium Chloride (Nss 1000ml) 1,000 mls @ 999 mls/hr IV .Q1H1M ONE Stop: 02/01/23 17:36 Last Infusion: 02/01/23 20:14 Dose: 0 mls/hr Documented By: Admin: 02/01/23 16:45 Dose: 999 mls/hr Documented By: MATTHEW Ioversol (Ioversol 350 Mg 125ml Prefilled Syringe) 119 ml IV ONCE ONE Stop: 02/01/23 15:46 Last Admin: 02/01/23 15:45 Dose: 119 ml Documented By: ROSI Potassium Chloride (Potassium Chloride 20 Meq/15 Ml Udc) 40 meq PO NOW STA Stop: 02/01/23 17:00 Last Admin: 02/01/23 17:27 Dose: 40 meq Documented By: MATTHEW Imaging Data Radiologist's Impression: Chest X-Ray 02/01/23 15:32 XR chest 1V portable CLINICAL HISTORY: neuro deficit, acute stroke suspected COMPARISON STUDY: Chest radiograph May 05, 2021. FINDINGS: Lung volumes are normal. Minimal left basilar opacity is unchanged and favors atelectasis. There is no pneumothorax or pleural effusion. Cardiac size is normal. Mediastinal contours are normal. There is no evidence for pulmonary edema. IMPRESSION: No acute cardiopulmonary findings. ACT 112: Negative or not required by law. Electronically signed by: Tigre Chau M.D. 02/01/2023 4:[address] 02/01/23 15:32 CT OF THE HEAD WITHOUT CONTRAST CLINICAL HISTORY: neuro deficit, acute stroke suspected. Right-sided weakness. COMPARISON STUDY: No previous studies for comparison. TECHNIQUE: Helical axial images of the head were obtained without IV contrast. Automated exposure control was utilized for the study. A dose lowering techniqu e was utilized adhering to the principles of ALARA. FINDINGS: No acute intracranial hemorrhage, midline shift or mass effect is present. The ventricular system is unremarkable. The basal cisterns are patent. No extra-axial collections are present. There is a moderate size focus of encephalomalacia within the left frontoparietal region. Bilateral basal ganglia calcification is incidentally noted. There are no findings to suggest acute dural sinus thrombosis or acute territorial infarct. No significant calvarial abnormalities are present. Visualized portions of the sinuses and mastoid air cells are clear. IMPRESSION: 1. No acute intracranial findings. 2. 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 ACT 112: Negative or not required by law. Electronically signed by: Tigre Chau M.D. 02/01/2023 3:58 PM Head CTA 02/01/23 15:32 CTA ANGIOGRAPHY OF THE HEAD CLINICAL HISTORY: neuro deficit, acute stroke suspected. Right-sided weakness. COMPARISON STUDY: No previous studies for comparison. TECHNIQUE: Helical axial images of the head were obtained following uneventful intravenous administration of 119 cc of Optiray. Sagittal and coronal reconstructions were viewed as well as maximal intensity projections on an independent 3-D workstation. Automated exposure control was utilized for the study. A dose lowering technique was utilized adhering to the principles of ALARA. FINDINGS: No acute intracranial hemorrhage is identified on the head CT which will be reported separately. Left frontoparietal focus of encephalomalacia is noted. The bilateral M1, M2, A1 and A2 segments are patent. There is no intracranial aneurysm. No large vessel occlusion is noted. There is mild plaque within the bilateral cavernous carotids without stenosis. Posterior circulation is intact. IMPRESSION: 1. No central vessel occlusion. No intracranial aneurysm. 2. Left frontoparietal focus of encephalomalacia suggestive of an old infarct. ACT 112: Negative or not required by law. Electronically signed by: Tigre Chau M.D. 02/01/2023 4:17 PM Neck CTA 02/01/23 15:32 CT ANGIOGRAPHY OF THE NECK WITH CONTRAST CLINICAL HISTORY: neuro deficit, acute stroke suspected COMPARISON STUDY: No previous studies for comparison. Technique: CT angiography of the carotid and vertebral arteries was obtained using Optiray and 3D reconstruction on an independent workstation. NASCET criteria was utilized. Automated exposure control was utilized for the study. A dose lowering technique was utilized adhering to the principles of ALARA. Findings: Mild emphysema is noted within the lung apices. There is no cervical lymphadenopathy. There is no cervical spine fracture. There is extensive atherosclerotic plaque within the proximal right internal carotid artery without significant stenosis. Left carotid stent is patent. The bilateral vertebral arteries are patent. There is no dissection or aneurysm within the neck. IMPRESSION: 1. Patent left carotid stent. 2. Extensive plaque within the proximal right internal carotid artery without significant stenosis. ACT 112: Negative or not required by law. Electronically signed by: Tigre Chau M.D. 02/01/2023 4:11 PM Discharge Plan Visit Data Chief Complaint: Stroke Alert Stated Complaint: STROKE ALERT ED Provider: Booker Delgado Discharge Problem: Weakness, Fever, Leukopenia, Acute hyponatremia, Acute hypokalemia Patient Disposition: Admitted As Inpatient Discharge Instructions Interventions: ED Discharge Assessment Last Done: 02/01/23 20:18
--- NOTE | 2023-02-01 15:59 | CT Scan Report ---
CT OF THE HEAD WITHOUT CONTRAST CLINICAL HISTORY: neuro deficit, acute stroke suspected. Right-sided weakness. COMPARISON STUDY: No previous studies for comparison. TECHNIQUE: Helical axial images of the head were obtained without IV contrast. Automated exposure con trol was utilized for the study. A dose lowering technique was utilized adhering to the principles o f ALARA. FINDINGS: No acute intracranial hemorrhage, midline shift or mass effect is present. The ventricular system is unremarkable. The basal cisterns are patent. No extra-axial collections are present. There is a moderate size focus of encephalomalacia within the left frontoparietal region. Bilateral basal g anglia calcification is incidentally noted. There are no findings to suggest acute dural sinus thromb osis or acute territorial infarct. No significant calvarial abnormalities are present. Visualized por tions of the sinuses and mastoid air cells are clear. IMPRESSION: 1. No acute intracranial findings. 2. 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 ACT 112: Negative or not required by law. Electronically signed by: Tigre Chau M.D. 02/01/2023 3:58 PM
--- NOTE | 2023-02-01 16:12 | CT Scan Report ---
CT ANGIOGRAPHY OF THE NECK WITH CONTRAST CLINICAL HISTORY: neuro deficit, acute stroke suspected COMPARISON STUDY: No previous studies for comparison. Technique: CT angiography of the carotid and vertebral arteries was obtained using Optiray and 3D rec onstruction on an independent workstation. NASCET criteria was utilized. Automated exposure control was utilized for the study. A dose lowering technique was utilized adhering to the principles of ALA RA. Findings: Mild emphysema is noted within the lung apices. There is no cervical lymphadenopathy. There is no cervical spine fracture. There is extensive atherosclerotic plaque within the proximal right i nternal carotid artery without significant stenosis. Left carotid stent is patent. The bilateral vert ebral arteries are patent. There is no dissection or aneurysm within the neck. IMPRESSION: 1. Patent left carotid stent. 2. Extensive plaque within the proximal right internal carotid artery without significant stenosis. ACT 112: Negative or not required by law. Electronically signed by: Tirge Chau M.D. 02/01/2023 4:11 PM
--- NOTE | 2023-02-01 16:19 | CT Scan Report ---
CTA ANGIOGRAPHY OF THE HEAD CLINICAL HISTORY: neuro deficit, acute stroke suspected. Right-sided weakness. COMPARISON STUDY: No previous studies for comparison. TECHNIQUE: Helical axial images of the head were obtained following uneventful intravenous administr ation of 119 cc of Optiray. Sagittal and coronal reconstructions were viewed as well as maximal inten sity projections on an independent 3-D workstation. Automated exposure control was utilized for the study. A dose lowering technique was utilized adhering to the principles of ALARA. FINDINGS: No acute intracranial hemorrhage is identified on the head CT which will be reported separa tely. Left frontoparietal focus of encephalomalacia is noted. The bilateral M1, M2, A1 and A2 segment s are patent. There is no intracranial aneurysm. No large vessel occlusion is noted. There is mild pl aque within the bilateral cavernous carotids without stenosis. Posterior circulation is intact. IMPRESSION: 1. No central vessel occlusion. No intracranial aneurysm. 2. Left frontoparietal focus of encephalomalacia suggestive of an old infarct. ACT 112: Negative or not required by law. Electronically signed by: Tigre Chau M.D. 02/01/2023 4:17 PM
[2023-02-01 16:21] LABS: iSTAT Creatinine 1.1 mg/dl (0.6-1.3); iSTAT Hemoglobin 11.9 g/dl (12.0-16.0); iSTAT Ionized Calcium 1.12 mmol/l (1.12-1.32); iSTAT Potassium 3.5 mmol/L (3.3-5.0)
[2023-02-01] MEDS ORDERED: cefTRIAXone SODIUM 2,000 MG/70 ML BAG IV STA (16:23)
[2023-02-01 16:28] LABS: Basophils # (auto) 0.01 K/uL (0-0.2); Basophils % (auto) 0.3 %; Hemoglobin 12.6 g/dl (12.0-16.0); Immature Granulocytes # (auto) 0.01 K/uL (0.01-0.20); Immature Granulocytes % (auto) 0.3 %; Lymphocytes # (auto) 0.39 K/uL (1.2-3.4); Lymphocytes % (auto) 11.1 %; Mean Corpuscular Hemoglobin 30.4 pg (25.0-34.0); Mean Platelet Volume 10.6 fL (9.4-12.4); Monocytes # (auto) 0.27 K/uL (0.11-0.59); Monocytes % (auto) 7.7 %; Neutrophils # (auto) 2.84 K/uL (1.40-6.50); Neutrophils % (auto) 80.6 %; Platelet Count 106 K/uL (130-400); RDW Coefficient of Variation 12.7 % (11.5-14.5); RDW Standard Deviation 40.4 fL (36.4-46.3); Red Blood Count 4.14 M/uL (4.20-5.40); White Blood Count 3.52 K/ul (4.8-10.8)
[2023-02-01] MEDS ORDERED: SODIUM CHLORIDE 0.9% 1000ML 1,000 ML IV ONE (16:36)
[2023-02-01] MEDS ORDERED: ACETAMINOPHEN 325 MG TAB PO STA ×2 (16:36→20:11)
[2023-02-01 16:39] LABS: INR 1.1 (0.9-1.1); Partial Thromboplastin Ratio 1.1; Prothrombin Time 11.9 Seconds (9.0-12.0)
[2023-02-01 16:42] LABS: Albumin Level 3.9 gm/dl (3.4-5.0); Bilirubin,Total 1.4 mg/dl (0.2-1.0); Calcium 8.9 mg/dl (8.6-10.3); Magnesium 1.4 mg/dl (1.7-2.4); Potassium 3.2 mmol/L (3.5-5.1)
[2023-02-01 16:48] LABS: Albumin Globulin Ratio 1.7 (0.9-2); BUN Creatinine Ratio 18.4 (10-20); Creatinine Clr Calc Pharmacy 51.1 ml/min; Est GFR (African American) 65.4 ml/min; Est GFR (Non-African American) 56.4 ml/min; Globulin 2.3 gm/dl (2.5-4.0); Total Protein 6.2 gm/dl (6.0-8.3)
[2023-02-01 16:52] LABS: Appearance Urine Clear (Clear); Bilirubin Urine Negative (Negative); Blood Urine Negative (Negative); Color Urine Yellow; Glucose Urine UA Negative (Negative); Ketones Urine Negative (Negative); Leukocyte Esterase Urine Negative (Negative); Nitrite Urine Negative (Negative); Protein Urine Negative (Negative); Specific Gravity Urine <= 1.005 (1.000-1.030); Urobilinogen Urine Negative (Negative); pH Urine 5.5 (4.5-7.5)
--- NOTE | 2023-02-01 16:52 | XRay Report ---
XR chest 1V portable CLINICAL HISTORY: neuro deficit, acute stroke suspected COMPARISON STUDY: Chest radiograph May 05, 2021. FINDINGS: Lung volumes are normal. Minimal left basilar opacity is unchanged and favors atelectasis. There is no pneumothorax or pleural effusion. Cardiac size is normal. Mediastinal contours are normal . There is no evidence for pulmonary edema. IMPRESSION: No acute cardiopulmonary findings. ACT 112: Negative or not required by law. Electronically signed by: Tigre Chau M.D. 02/01/2023 4:51 PM
[2023-02-01 16:53] LABS: Troponin I High Sensitivity 8.6 pg/ml (0-14)
[2023-02-01] MEDS ORDERED: POTASSIUM CHLORIDE 20 MEQ/15 ML UDC PO STA (16:59)
[2023-02-01 17:24] LABS: Lyme Ab IgG w/WB Rflx Negative (Negative); Lyme Ab IgM w/WB Rflx Negative (Negative)
--- NOTE | 2023-02-01 17:32 | History & Physical Report ---
Date of Service February 01, 2023 Assessment & Plan (1) Weakness: Plan: Weakness.? TIA,/?Anaplasmosis Discussed with patient and her daughter and granddaughter at bedside. When they found her she had greatly impaired right-sided strength, facial droop, difficulty speaking with symptoms highly suspicious for TIA. This does not explain her fever or general unwellness, but symptoms sound consistent with new and pronounced neurologic deficits. Discussed that this could also be a reactivation of old deficits while ill, but given severity and to reliable historians endorsing severe symptoms atypical from her normal residual CVA symptoms we will follow-up with MRI and switch aspirin to Plavix. Neutropenic at 3.52, thrombocytopenic at 106, febrile at 38.1 Fevers and chills for several days Hemoglobin 12.6 Sodium 130, potassium 3.2, creatinine 0.98, BSG 129 Hypomagnesemic at 1.4, repleted Total bilirubin is 1.4 without transaminitis High sensitive troponin is normal UA is uninfected appearing Lyme is negative, Anaplasma smear is pending CTAneck: Patent left carotid stent, extensive plaque in proximal right carotid artery without stenosis CTAhead: No central occlusion, left frontoparietal focus of encephalomalacia suggestive of old infarct. CThead: No acute intracranial findings, old left frontoparietal CXR: No acute cardiopulmonary finding Patient is treated empirically for anaplasmosis based on thrombocytopenia, neutropenia, fever. Given Rocephin in ER, switched to doxycycline on admission Patient denies any other focal infectious symptoms including cough, chest pain, chest pressure, nausea/vomiting, and dysuria. 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 Was on DAPT, subsequently moved to aspirin monotherapy We will switch aspirin to Plavix as noted above Hyponatremia BSG 130, potassium 3.2. Suspect patient solute depleted Patient has received 2 L NSS We will repeat BMP x1. If sodium downtrending post fluids and obtain urine studies and fluid restrict Type II DM with history of HHS Home glargine 20 units continued Metformin held, transferred to SSI. Patient has diarrhea on the immediate release formulation, switch to XR on discharge Admitting BSG 131 Basal bolus SSI goal 1 101 4 Hypertension Continue irbesartanhydrochlorothiazide Continue metoprolol 100 mg daily Continue amlodipine 5 mg - 11/13/2022 echo: Normal LV function, 60 to 65%, normal wall motion. 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 Did have a biopsy of the mass performed by [facility], verified that it is adenocarcinoma suspected cholangiocarcinoma primary based on picture of report Low suspicion that this is causing her acute presentation, will continue to follow. Patient would like to talk to oncology while inpatient if possible, but is aware that may also need to wait for their outpatient appointment DVT prophylaxis: Lovenox Disposition: Medical/telemetry for TIA rule out Diet: DM 2 CODE STATUS: DNR/DNI, discussed with patient at bedside (2) T2DM (type 2 diabetes mellitus): (3) S/P coronary artery stent placement: (4) Liver mass: (5) Hypertension: (6) High cholesterol: History of Present Illness Primary Care Provider: Lester Garrison is a 77-year-old female with past medical history of type II DM, hypertension, hypercholesterolemia who presented to the emergency department as a stroke alert. Around 8 AM her niece came to help her with her eyedrops and noted patient was not feeling well and was unsteady walking with possible right facial droop and right arm weakness, was brought into ER as a stroke alert. While in the ER patient was awake, oriented endorse that she was feeling poorly since last and that right arm weakness is old and not acute. Meli is seen iwth her daughter and granddaughter at the bedside. Daughter reports 'something jsut seemed wrong on the phone." Called her granddaughter Caitlyn went to see her and noted that she seemd to have a R facial droop which is not normal for her. Was very weak, muchmore than normal and was tilting to the R side trying to stand or walk. Needed help walking which is new and not normal for Meli. Meli was under a blanket reporting she felt freezing/cold despite it being very warm out. Fevers and chills since last No nausea/vomiting. New diarrhea since starting Metformin. No abdominal Denies rashing or skin stuff. No tick bites. Does not garden, no pets, not generally outdoors Mild headache earlier this AM, no headache now Denies pain with urination, no polyuria Had cataract last thrusday Medical History: Reviewed Medications: Reviewed Surgical History: Reviewed Family history: Reviewed Allergies: Reviewed. NKDA. Social History: Former smoker, no current use. No alochol. Code Status:DNR/DNI Liver Cyst- was biopsied at [facility] on December 30. Was positive for cancer. They are pending followup with [facility] Oncology, have not yet discussed type/options/prognosis. (Adenocarcinoma, favoring intrahepatic cholangiocarcinoma). 5.7 x 4.2 cm mass with peripheral enhancement noted at prior admission, was pending outpatient biopsy Allergies Allergy/AdvReac Type Severity Reaction Status Date / Time No Known Allergies Allergy Unverified 02/01/23 16:42 Home Medications Medication Instructions Recorded Confirmed Type amlodipine 5 mg tablet 5 mg PO DAILY 11/12/22 02/01/23 History ascorbic acid (vitamin C) 500 mg 0 mg PO DAILY 11/12/22 02/01/23 History tablet aspirin 81 mg tablet,delayed 81 mg PO DAILY 11/12/22 02/01/23 History release cholecalciferol (vitamin D3) 25 25 mcg PO DAILY 11/12/22 02/01/23 History mcg (1,000 unit) tablet irbesartan 150 2 tab PO DAILY 11/12/22 02/01/23 History mg-hydrochlorothiazide 12.5 mg tablet metoprolol succinate 100 mg 100 mg PO DAILY 11/12/22 02/01/23 History tablet,extended release 24 hr zinc gluconate 50 mg tablet 0 mg PO DAILY 11/12/22 02/01/23 History blood sugar diagnostic (Exelisuch #100 ea 11/14/22 02/01/23 Rx Verio test strips) insulin syringe-needle U-100 1 mL #100 ea 11/14/22 02/01/23 Rx 31 gauge x 15/64" lancets 33 gauge (OneTouch Delica #100 ea 11/14/22 02/01/23 Rx Lancets) atorvastatin 40 mg tablet 40 mg PO DAILY 02/01/23 02/01/23 History insulin glargine 100 unit/mL 20 unit subcut QPM 02/01/23 02/01/23 History subcutaneous solution (Lantus U-100 Insulin) metformin 500 mg tablet,extended 250 mg PO QPM 02/01/23 02/01/23 History release 24 hr metformin 500 mg tablet,extended 500 mg PO QAM 02/01/23 02/01/23 History release 24 hr Past Med/Surg History Medical History (Updated 02/01/23 @ 16:59 by Booker Delgado DO) Acute dehydration Acute hyperglycemia Acute kidney injury CVA (cerebral vascular accident) High cholesterol Hyperosmolar hyperglycemic state (HHS) Hypertension Macular degeneration T2DM (type 2 diabetes mellitus) Surgical History (Updated 11/13/22 @ 09:39 by Kristi Harrington) H/O tubal ligation S/P coronary artery stent placement Social History Smoking Status: Former smoker Second Hand Exposure: No; Do You Dip or Chew Tobacco: No; Hx Alcohol Use: No Hx Substance Use: No Preferred Language: Yi Communication Ability: Effective Sponge Maker Required: No Beliefs That Will Affect Care: None Current Living Situation: Alone Feels Safe at Home: Yes Physical Exam Physical Exam: General: A&Ox3. NAD. Cooperative. HEENT: Atraumatic, normocephalic. Pulm: CTAB A&P. -wheezes, -rales, -rhonchi. Symmetrical chest rise. No increased work of breathing. No respiratory distress. Cardiac: RRR, -mrg. Radial pulses intact and symmetrical. Abdominal: Nontender, nondistended, soft. BS present. CRANIAL NERVES: II: Pupils equal and reactive, no relative afferent pupillary defect, no VF cuts III, IV, : EOM intact, no gaze preference or deviation, no nystagmus. 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 Bilateral flexor planter response, no Upton's, no clonus SENSORY: Normal to touch in upper and lower extremities without deficit or asymmetry Results & Data Results & Data Vital Signs (Past 12 Hours) Vital Signs Temp Pulse Pulse Resp BP Pulse Ox O2 Del Method 02/01/23 16:15 99 H 02/01/23 16:05 38.1 C H 98 H 17 140/77 91 Room Air 02/01/23 16:05 99 Room Air PG Care Time/CCT Total # of Minutes Spent Total Time Spent with Patient: Total time spent is greater than 50% in coordination of care (as documented) at patient's floor/unit and/or counseling patient: Coding Level of Care Code 95465 INT INP/OBS CARE 3/75MIN Diagnoses Weakness R53.1 T2DM (type 2 diabetes mellitus) E11.9 S/P coronary artery stent placement Z95.5 Liver mass R16.0 Hypertension I10 High cholesterol E78.00
[2023-02-01] MEDS ORDERED: ACETAMINOPHEN 325 MG TAB ONE (20:07)
[2023-02-01] MEDS ORDERED: PLASMA-LYTE A 1,000 ML IV SCH (20:37)
[2023-02-01] MEDS ORDERED: PHARMACIST DISCHARGE MED REC CONSULT PRN (20:37)
[2023-02-01] MEDS ORDERED: CARBOHYDRATES FOR HYPOGLYCEMIA PO PRN (20:37)
[2023-02-01] MEDS ORDERED: DEXTROSE 50% 50 ML SYRINGE IV PRN (20:37)
[2023-02-01] MEDS ORDERED: GLUCAGON FOR INJ 1 MG VIAL SQ PRN (20:37)
[2023-02-01] MEDS ORDERED: GLUCOSE 10 TAB/TUBE PO PRN (20:37)
[2023-02-01] MEDS ORDERED: GLUCOSE 40% GEL 15 GM TUBE PO PRN (20:37)
[2023-02-01] MEDS ORDERED: LANTUS PER UNIT CHARGE SQ SCH ×2 (21:00)
[2023-02-01] MEDS: POTASSIUM CHLORIDE / WTR 10 MEQ/100 ML PLCT IV SCH ×2 (21:04→22:17)
[2023-02-01] MEDS: INSULIN ASPART PER UNIT CHARGE SC SCH (21:26)
[2023-02-01] MEDS: DOXYCYCLINE HYCLATE 100 MG in DEXTROSE 5% 100 ML IV SCH (21:43)
[2023-02-02] MEDS ORDERED: ACETAMINOPHEN 325 MG TAB PO PRN (00:30)
--- NOTE | 2023-02-02 01:42 | Magnetic Resonance Report ---
Exam(s): MRI HEAD Without Contrast EXAM: MR Head Without Intravenous Contrast CLINICAL HISTORY: Reason for exam: ?CVA/TIA. TECHNIQUE: Magnetic resonance images of the head/brain without intravenous contrast in multiple planes. COMPARISON: Comparison made to prior noncontrast head CT from February 01, 2023. FINDINGS: Brain: Remote ischemic injury of the left frontal and parietal lobe with encephalomalacia and gliosis. Moderate nonspecific white matter changes. The flow voids at the base of the brain are intact. No mass. No hemorrhage. No acute infarct. Ventricles: Unremarkable. No ventriculomegaly. Bones/joints: Hyperostosis frontalis interna. Mild to advanced facet joint arthropathy at C2-3, C3-4 and C4-5. Sinuses: Unremarkable as visualized. No acute sinusitis. Mastoid air cells: Unremarkable as visualized. No mastoid effusion. Orbits: Left lens replacement. IMPRESSION: No evidence of acute intracranial pathology. Electronically signed by: Henrietta Leon MD 02/02/23 01:41 AM
[2023-02-02 06:44] LABS: Albumin Globulin Ratio 1.4 (0.9-2); Albumin Level 3.5 gm/dl (3.4-5.0); BUN Creatinine Ratio 17.3 (10-20); Calcium 8.6 mg/dl (8.6-10.3); Chol HDL Ratio 3.6 (0-5); Creatinine Clr Calc Pharmacy 65.8 ml/min; Est GFR (African American) 90.4 ml/min; Globulin 2.5 gm/dl (2.5-4.0); Potassium 3.3 mmol/L (3.5-5.1)
[2023-02-02 06:50] LABS: Hematocrit (blood only) 34.6 % (37.0-47.0); Hemoglobin 11.9 g/dl (12.0-16.0); Mean Corpuscular Hemoglobin 30.1 pg (25.0-34.0); Mean Corpuscular Hgb Conc 34.4 g/dL (32.0-36.0); Mean Corpuscular Volume 87.6 fL (80.0-100.0); Mean Platelet Volume 10.9 fL (9.4-12.4); Platelet Count 90 K/uL (130-400); RDW Coefficient of Variation 12.7 % (11.5-14.5); RDW Standard Deviation 40.5 fL (36.4-46.3); Red Blood Count 3.95 M/uL (4.20-5.40)
[2023-02-02 06:56] LABS: Basophils # (auto) 0.01 K/uL (0-0.2); Basophils % (auto) 0.4 %; Immature Granulocytes # (auto) 0.01 K/uL (0.01-0.20); Immature Granulocytes % (auto) 0.4 %; Lymphocytes # (auto) 0.43 K/uL (1.2-3.4); Lymphocytes % (auto) 15.9 %; Monocytes # (auto) 0.27 K/uL (0.11-0.59); Neutrophils # (auto) 1.98 K/uL (1.40-6.50); Neutrophils % (auto) 73.3 %
--- NOTE | 2023-02-02 07:11 | Hospitalist Progress Note ---
Date of Service February 02, 2023 Assessment & Plan (1) Weakness: Plan: 77 year old female w/ PmHx CVA 3 years prior, HTN, T2DM, hypercholesterolemia admitted to the hospital for concern over weakness, possible TIA, and fevers. Weakness: Per daughter, patient had worsened R sided weakness and R facial droop prior to arrival to hospital. Leukopenic 2.70, platelets 106, T bili 1.4 w/o transaminitis, hemoglobin 12.6. Hypomagnesemic at 1.4, repleted. Fevers up to 38.2 in the hospital. High sensitive troponin is normal UA is uninfected appearing Lyme is negative, Anaplasma smear is pending CTAneck: Patent left carotid stent, extensive plaque in proximal right carotid artery without stenosis CTAhead: No central occlusion, left frontoparietal focus of encephalomalacia suggestive of old infarct. CThead: No acute intracranial findings, old left frontoparietal CXR: No acute cardiopulmonary finding Patient is treated empirically for anaplasmosis based on thrombocytopenia, neutropenia, fever. Given Rocephin in ER, switched to doxycycline on admission Patient denies any other focal infectious symptoms including cough, chest pain, chest pressure, nausea/vomiting, and dysuria. 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 Was on DAPT, subsequently moved to aspirin monotherapy We will switch aspirin to Plavix as noted above Hyponatremia BSG 130, potassium 3.2. Suspect patient solute depleted Patient has received 2 L NSS We will repeat BMP x1. If sodium downtrending post fluids and obtain urine studies and fluid restrict Type II DM with history of HHS Home glargine 20 units continued Metformin held, transferred to SSI. Patient has diarrhea on the immediate release formulation, switch to XR on discharge Admitting BSG 131 Basal bolus SSI goal 1 101 4 Hypertension Continue irbesartanhydrochlorothiazide Continue metoprolol 100 mg daily Continue amlodipine 5 mg - 11/13/2022 echo: Normal LV function, 60 to 65%, normal wall motion. 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 Did have a biopsy of the mass performed by [facility], verified that it is adenocarcinoma suspected cholangiocarcinoma primary based on picture of report Low suspicion that this is causing her acute presentation, will continue to follow. Patient would like to talk to oncology while inpatient if possible, but is aware that may also need to wait for their outpatient appointment DVT prophylaxis: Lovenox Disposition: Medical/telemetry for TIA rule out Diet: DM 2 CODE STATUS: DNR/DNI, discussed with patient at bedside (2) Acute hyponatremia: (3) T2DM (type 2 diabetes mellitus): (4) Liver mass: (5) Hypertension: (6) High cholesterol: Admission and Anticipated Discharge Date Admission Date: February 01, 2023 Subjective Patient seen at the bedside this morning stating that she was feeling well today. She states that prior to coming in she phoned her daughter when she was not feeling well from having fevers and a few chills at home. She states that her daughter was concerned if she had any new worsening of her stroke symptoms from 3 years ago. Patient told me her stroke symptoms of R sided facial droop and R arm weakness were not any worse than they were over the past 3 years. She denies any current fevers, chills, urinary frequency, dysuria. She has diarrhea but said this has been since starting metformin in November. Review of Systems Review of Systems: As per HPI. Physical Exam Constitutional: WD/WN, vitals as above sitting comfortably in chair. Eyes: PERRL, conjunctivae normal, anicteric sclerae Respiratory: normal respiratory effort, lungs clear to auscultation Cardiovascular: RRR, no murmur, no edema Gastrointestinal (Abdomen): normal bowel sounds, soft, nontender, no hepatosplenomegaly Neurologic: Patient with normal cranial nerve exam aside from mild R facial droop. Strength at R upper extremity 4/5, LUQ 5/5. RLL and LLL w/ 5/5 strength. No sensory deficits. Psychiatric: A+Ox3, euthymic affect Results & Data Results & Data Vital Signs (Past 12 Hours) Vital Signs Temp Pulse Pulse Resp BP Pulse Ox O2 Del Method 02/02/23 03:10 37.8 C H 86 18 110/72 91 Room Air 02/01/23 22:02 65 02/01/23 22:59 36.9 C 75 20 98/64 L 94 Room Air 02/01/23 20:44 36.8 C 90 16 113/76 92 Room Air 07/23/23 20:00 38.2 C H 82 20 122/74 92 Room Air
[2023-02-02 07:53] LABS: Estimated Average Glucose 148 mg/dl; Hemoglobin A1C 6.8 % (4.5-5.6)
[2023-02-02] MEDS ORDERED: POTASSIUM CHLORIDE CRTAB 20 MEQ TABCR PO STA (08:01)
[2023-02-02] MEDS: INSULIN ASPART PER UNIT CHARGE SC SCH ×2 (08:39→12:15)
[2023-02-02] MEDS: DOXYCYCLINE HYCLATE 100 MG in DEXTROSE 5% 100 ML IV SCH (08:41)
[2023-02-02] MEDS: OFLOXACIN 0.3% 75 DROPS/5 ML BTL OPL SCH ×2 (08:41→13:44)
[2023-02-02] MEDS: prednisoLONE acetate 1% OP SUSP 5 ML BTL OPL SCH ×2 (08:41→13:43)
[2023-02-02] MEDS ORDERED: hydroCHLOROthiazide 25 MG TAB PO SCH (09:00)
[2023-02-02] MEDS ORDERED: METOPROLOL SUCC 50MG EXT REL TAB PO SCH (09:00)
[2023-02-02] MEDS ORDERED: ATORVASTATIN 40 MG TAB PO SCH (09:00)
[2023-02-02] MEDS ORDERED: amLODIPine BESYLATE 5 MG TAB PO SCH (09:00)
[2023-02-02] MEDS ORDERED: CLOPIDOGREL BISULFATE 75 MG TAB PO SCH (09:00)
[2023-02-02] MEDS ORDERED: LOSARTAN POTASSIUM 50 MG TAB PO SCH (09:00)
[2023-02-02] MEDS ORDERED: ENOXAPARIN INJ 40 MG/0.4 ML SYR SQ SCH (09:00)
--- NOTE | 2023-02-02 11:17 | Electrocardiogram Report ---
Test Reason : Blood Pressure : / mmHG Vent. Rate : 100 BPM Atrial Rate : 100 BPM P-R Int : 180 ms QRS Dur : 078 ms QT Int : 310 ms P-R-T Axes : 069 054 187 degrees QTc Int : 399 ms Normal sinus rhythm Abnormal ECG When compared with ECG of 05-MAY-2021 15:33, Vent. rate has increased BY [address] now depressed in Lateral leads T wave inversion now evident in Anterolateral leads Confirmed by Reid Lloyd ([id number]) on 02/02/2023 11:17:18 AM Referred By: REFERRED SELF Confirmed By:Reid Lloyd
[2023-02-02] MEDS ORDERED: IOVERSOL 350 MG 125mL Prefilled Syringe IV ONE (14:41)
--- NOTE | 2023-02-02 15:19 | CT Scan Report ---
CHEST CTA for PULMONARY ARTERIES CT DOSE: 928.92 mGy.cm HISTORY: Fever unknown origin, possible PE, hx cancer TECHNIQUE: Multiaxial CT images of the chest were performed following the intravenous administration of contrast to evaluate the pulmonary arteries. 3D/Maximal intensity projection images were also obta ined. Sagittal and coronal reformations were also reviewed. A dose lowering technique was utilized a dhering to the principles of ALARA. COMPARISON STUDY: Abdomen and pelvis CT 11/13/2022. FINDINGS: There is again noted an ill-defined hypodense lesion within the central aspect of the liver which is better appreciated on the prior abdominal MRI. This measures approximately 6.8 cm. This is only partially imaged on this study. The visualized spleen is unremarkable. Normal thyroid gland. Nor mal esophagus. There is a tiny hiatus hernia. The heart is normal in size. No pleural or pericardial effusions. No mediastinal or hilar lymphadenopathy. Subcentimeter right pericardial lymph nodes remai n stable. Advanced coronary artery calcifications are noted. Mild calcified plaque within the normal caliber thoracic aorta. No evidence for an aortic dissection. No filling defects within the pulmonary arteries to suggest a pulmonary embolus. No acute fractures identified. No suspicious lytic or blast ic osseous lesions. The central airways are patent. Mild emphysema. No pneumothorax. No focal lung co nsolidations to suggest a pneumonia. No evidence for pulmonary edema. Left basilar linear densities f avor subsegmental atelectasis or scarring. IMPRESSION: 1. No evidence for a pulmonary embolus. 2. Mild emphysema. 3. Redemonstration of the ill-defined hepatic lesion. This is better appreciated on the prior abdomin al MRI. ACT 112: Negative or not required by law. Electronically signed by: Aaron Mitchell M.D. 02/02/2023 3:17 PM
--- NOTE | 2023-02-02 15:27 | Pharmacy Report ---
- Date of Service February 02, 2023 - Pharmacy CVA/TIA Medication Review Medications to Prevent Stroke handout has been added to the patients discharge packet. Antiplatelet(s) * Plavix 75 mg PO daily Cholesterol * High intensity statin: atorvastatin 40 mg daily DVT Prophylaxis * Enoxaparin SQ Therapeutic Anticoagulation * No history of Afib/Aflutter noted Type 2 Diabetes * Patient has T2DM, but per discussion with Dr Jimenes, a diabetes medication with proven CVD benefit will be deferred to their outpatient provider due to familiarity with risks/benefits of such therapies. "Medications to prevent stroke" handout has already been added to the patient's discharge packet, which instructs the patient to follow up with their outpatient provider to evaluate which diabetes medication with proven CVD benefit is best for them
--- NOTE | 2023-02-02 16:58 | Discharge Summary ---
Date of Service February 02, 2023 Admission HPI Per Admitting Provider Meli is a 77-year-old female with past medical history of type II DM, hypertension, hypercholesterolemia who presented to the emergency department as a stroke alert. Around 8 AM her niece came to help her with her eyedrops and noted patient was not feeling well and was unsteady walking with possible right facial droop and right arm weakness, was brought into ER as a stroke alert. While in the ER patient was awake, oriented endorse that she was feeling poorly since last and that right arm weakness is old and not acute. Meli is seen iwth her daughter and granddaughter at the bedside. Daughter reports 'something jsut seemed wrong on the phone." Called her granddaughter Caitlyn went to see her and noted that she seemd to have a R facial droop which is not normal for her. Was very weak, muchmore than normal and was tilting to the R side trying to stand or walk. Needed help walking which is new and not normal for Meli. Meli was under a blanket reporting she felt freezing/cold despite it being very warm out. Fevers and chills since last No nausea/vomiting. New diarrhea since starting Metformin. No abdominal Denies rashing or skin stuff. No tick bites. Does not garden, no pets, not generally outdoors Mild headache earlier this AM, no headache now Denies pain with urination, no polyuria Had cataract last thrusday Medical History: Reviewed Medications: Reviewed Surgical History: Reviewed Family history: Reviewed Allergies: Reviewed. NKDA. Social History: Former smoker, no current use. No alochol. Code Status:DNR/DNI Liver Cyst- was biops[place] [facility] on [place] 30. Was positive for cancer. They are pending followup with [facility] Oncology, have not yet discussed type/options/prognosis. (Adenocarcinoma, favoring intrahepatic cholangiocarcinoma). 5.7 x 4.2 cm mass with peripheral enhancement noted at prior admission, was pending outpatient biopsy Principal Diagnosis Weakness, tick borne disease Discharge Exam Constitutional WD/WN, vitals as above Eyes PERRL, conjunctivae normal, anicteric sclerae Respiratory normal respiratory effort, lungs clear to auscultation Cardiovascular RRR, no murmur, no edema Gastrointestinal (Abdomen) normal bowel sounds, soft, nontender, no hepatosplenomegaly Neurologic Patient with normal cranial nerve exam aside from mild R facial droop. Strength at R upper extremity 4/5, LUQ 5/5. RLL and LLL w/ 5/5 strength. No sensory deficits. Psychiatric A+Ox3, euthymic affect Discharge Data Allergies Allergy/AdvReac Type Severity Reaction Status Date / Time No Known Allergies Allergy Unverified 02/01/23 16:42 Consultations 02/01/23 16:49 ED Decision to Admit Stat Ordered Studies 02/01/23 15:32 CT angio head w con Stat IMPRESSION: 1. No central vessel occlusion. No intracranial aneurysm. 2. Left frontoparietal focus of encephalomalacia suggestive of an old infarct. CT angio neck with con Stat IMPRESSION: 1. Patent left carotid stent. 2. Extensive plaque within the proximal right internal carotid artery without significant stenosis. CT head/brain wo con Stat IMPRESSION: 1. No acute intracranial findings. 2. 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 02/01/23 20:37 MRI Brain [MR brain wo con] Routine IMPRESSION: No evidence of acute intracranial pathology. 02/02/23 13:20 CT angio chest PE protocol Routine IMPRESSION: 1. No evidence for a pulmonary embolus. 2. Mild emphysema. 3. Redemonstration of the ill-defined hepatic lesion. This is better appreciated on the prior abdominal MRI. Hospital Course (1) Weakness: 77 year old female w/ PmHx CVA 3 years prior, HTN, T2DM, hypercholesterolemia admitted to the hospital for concern over weakness, possible TIA, and fevers. Fever Fever up to 38.2C while in the hospital on day of admission. leukopenia and thrombocytopenia CTA chest negative for PE. - 24 hour Blood cultures - no growth. Possibly from tick borne disease vs cancer. Treatment of tick borne disease as above w/ Doxycycline BID 100mg for 10 day total. Weakness: Likely residual weakness from previous stroke. MRI brain negative for acute intracranial pathology. - Back to baseline on discharge. Type II DM with history of HHS A1c markedly reduced from May - A1c of 15 down to 6.8 this admission. Continue home regimen on discharge. could switch to ER instead of IR metformin to help with diarrhea. 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 (2) Acute hyponatremia: (3) T2DM (type 2 diabetes mellitus): (4) Liver mass: (5) Hypertension: (6) High cholesterol: Total Time Total Time Spent Total Time Spent (In Minutes): Please see attending attestation. Discharge Plan Discharge Items Patient Disposition: Home - Self-Care Reason For Visit: TIA EVAL, FEVER ?ANAPLASMA Discharge Diagnosis: Fever, weakness Activity: Per Instructions section Non-emergency contact: Primary Care Provider Call non-emergency contact if: your symptoms worsen, your pain is worsening and your temperature is above 101 Follow-up/Referrals: Lester Cali [Primary Care Provider] - (Patient to follow up with PCP.) Diet: Regular Addtl Attending Provider Instructions: You came to the hospital for concern over worsening weakness and concern over possible new stroke. You had imaging performed which did not show any evidence of a new stroke. You relayed you are at your baseline strength and so we feel this episode may have been due to either an acute illness you had or a very short term event of transient stroke called TIA. Please continue to work your muscles by doing light physical therapy exercises at home. When you came into the hospital you had fevers up to 100.7F and you were found to have low platelets on blood work. Usually this may come about if you have a tick borne infection. If there was an underlying infection that may have caused worsening of your weakness. Your tick panel came back negative however this does not entirely exclude a tick infection. As such we will be sending you home with a prescription of antibiotic called Doxycycline to help treat the potential infection. You will take the Doxycycline 100mg twice a day for 8 days for a total of 10 days. You should be fever free after the duration of the treatment. If you find you are still having fevers at home even after this treatment please contact your PCP office or go back to the ER. Your hemoglobin A1c has come down a great bit from 15 to 6.8. Please follow up with endocrinology in March however in the mean time it may be worth it to bring up possible medication adjustment with your PCP. Pending Studies at Discharge: Yes (blood cultures to 48hrs. Negative at 24 hours) Stand-Alone Forms: [employer], Smoking Cessation, Medications to Prevent Stroke Medications and DC Order Prescriptions: New doxycycline hyclate 100 mg capsule 100 mg PO BID 9 Days Qty: 18 0RF Rx Instructions: Tick borne disease Continued atorvastatin 40 mg tablet 40 mg PO DAILY metformin 500 mg tablet extended release 24 hr 250 mg PO QPM insulin glargine [Lantus U-100 Insulin] 100 unit/mL solution 20 unit subcut QPM metformin 500 mg tablet extended release 24 hr 500 mg PO QAM Rx Instructions: take 1 tablet every day with dinner amlodipine 5 mg tablet 5 mg PO DAILY irbesartan-hydrochlorothiazide 150-12.5 mg tablet 2 tab PO DAILY metoprolol succinate 100 mg tablet extended release 24 hr 100 mg PO DAILY aspirin 81 mg Tablet,Delayed Release (Dr/Ec) 81 mg PO DAILY cholecalciferol (vitamin D3) 25 mcg (1,000 unit) Tablet 25 mcg PO DAILY ascorbic acid (vitamin C) 500 mg Tablet 0 mg PO DAILY zinc gluconate 50 mg Tablet 0 mg PO DAILY (DME) OneTouch Verio test strips Strip See Rx Instructions .Route Qty: 100 0RF Rx Instructions: As directed (DME) lancets [OneTouch Delica Lancets] 33 gauge misc See Rx Instructions .Route Qty: 100 0RF Rx Instructions: As directed (DME) insulin syringe-needle U-100 1 mL 31 gauge x 15/64" syringe See Rx Instructions .Route Qty: 100 0RF Rx Instructions: As directed Discharge Orders: Discharge Order (Routine); Ordered 02/02/23 Ordered By: Perez Ruiz/Other Patient Handouts: Managing Type 2 Diabetes Admission Data Admit Date/Time: 02/01/23 18:01 Attending Provider: Sabrina Ramírez Admit Provider: Terrance Ramos Primary Care Provider: Lester Cali Other Providers: Terrance Ramos Supervising Physician Co-Signing Physician Notes Resident Physician Supervision Note: I independently interviewed and examined the patient and verified the mckeon history and physical, reviewed labs and image studies and agree with resident findings and care plan. Resident Activity Tracking Resident Involvement: Resident Care Provided Care Provided: Adult Hospital Medicine
[2023-02-02] MEDS ORDERED: STROKE PATIENT DISCHARGE STA (17:00)
== END 2023-02-02 18:14 | disposition home or self-care (01) ==
LOC: ED 15:41 → 2S 18:01 → INTOOBSV 18:01 → SUATTDRO 18:01 → 2S 20:18

== ENCOUNTER 2023-11-11 12:36 | Inpatient (IN) ==
[2023-11-11 13:22] LABS: Basophils # (auto) 0.02 K/uL (0.00-0.20); Basophils % (auto) 0.2 %; Eosinophils % (auto) 0.9 %; Hematocrit (blood only) 29.5 % (37.0-47.0); Hemoglobin 10.1 g/dl (12.0-16.0); INR 1.1 (0.9-1.1); Immature Granulocytes # (auto) 0.04 K/uL (0.01-0.20); Immature Granulocytes % (auto) 0.4 %; Lymphocytes # (auto) 0.72 K/uL (1.20-3.40); Lymphocytes % (auto) 6.7 %; Mean Corpuscular Hgb Conc 34.2 g/dL (32.0-36.0); Mean Corpuscular Volume 87.5 fL (80.0-100.0); Monocytes # (auto) 0.49 K/uL (0.11-0.59); Monocytes % (auto) 4.5 %; Neutrophils # (auto) 9.43 K/uL (1.40-6.50); Neutrophils % (auto) 87.3 %; Partial Thromboplastin Time 28 Seconds (21-31); Platelet Count 186 K/uL (130-400); Prothrombin Time 11.9 Seconds (9.0-12.0); RDW Standard Deviation 44.6 fL (36.4-46.3); Red Blood Count 3.37 M/uL (4.20-5.40)
[2023-11-11] MEDS: SODIUM CHLORIDE 0.9% 1,000 ML IV ONE ×2 (13:25→15:01)
[2023-11-11] MEDS: SODIUM CHLORIDE 0.9% 500 ML IV STA (13:25)
--- NOTE | 2023-11-11 13:27 | XRay Report ---
XR chest 1V not portable HISTORY: dizziness COMPARISON: Chest 10/12/2023. FINDINGS: No pneumothorax. No pleural effusions. The heart is normal in size. There is a left subclav clau Port-A-Cath which terminates in the brachiocephalic/SVC junction. This remains unchanged. A few s mall left basilar linear densities favor subsegmental atelectasis or scarring. Otherwise, the lungs a re clear. No evidence for pulmonary edema. Calcifications within the aortic knob. No acute fractures. IMPRESSION: No significant change compared to the prior study. No acute process. ACT 112: Negative or not required by law. Electronically signed by: Aaron Mitchell M.D. 11/11/2023 1:26 PM
[2023-11-11 13:44] LABS: Albumin Level 3.6 gm/dl (3.4-5.0); Calcium 10.3 mg/dl (8.6-10.3); Magnesium 1.3 mg/dl (1.7-2.4); Potassium 4.3 mmol/L (3.5-5.1)
[2023-11-11 13:45] LABS: Troponin I High Sensitivity 12.5 pg/ml (0-14)
[2023-11-11 13:50] LABS: BUN Creatinine Ratio 15.6 (10-20); Creatinine Clr Calc Pharmacy 27.5 ml/min; Est GFR (African American) 32.7 ml/min; Est GFR (Non-African American) 28.2 ml/min; Globulin 3.5 gm/dl (2.5-4.0); Total Protein 7.1 gm/dl (6.0-8.3)
--- NOTE | 2023-11-11 13:59 | Emergency Department Note ---
Impression & Plan RAYN (acute kidney injury), Cholangiocarcinoma, Dehydration, Hypotension ED Provider Note NAME: BAYRON ZEPEDA AGE: 78 SEX: F : 1945 ARRIVES VIA: Walk-In INFORMANT: Patient ED PROVIDER(S): Robby Graves MD CHIEF COMPLAINT: Dizziness, weakness, referred. PLAN: Disposition: Admit MEDICAL DECISION MAKING: The patient is a pleasant 78-year-old woman with a past medical history of cholangiocarcinoma undergoing chemotherapy and cancer care with the [facility] who presents to the emergency department for evaluation of generalized weakness, dizziness, and poor oral intake in the setting of having recent dehydration and renal insufficiency on outpatient testing couple of days ago. The patient did not want to come to the hospital previously and so received IV fluids in clinic but has continued to feel dizzy and weak. She denies any fevers, cough, congestion, vomiting or diarrhea. She has been attempting to hydrate. She was recently treated with antibiotics for cellulitis in her lower legs. On my evaluation the patient is fatigued appearing but no distress, afebrile with blood pressure in the 70s/50s which did improve/respond to IV fluid hydration with 1 L normal saline provided with pressure bag. Additional 1500cc NSS administered. Patient was mentating normally throughout this time. She exhibits dry mucous membranes though with 1+ bilateral lower extremity pitting edema. EKG without overt acute ischemia. CXR negative for acute cardiopulmonary process per my personal preliminary review/interpretation. WBC within normal limits. Platelets within normal limits. H/H similar to prior. There is no left shift. Chemistry without metabolic acidosis. Creatinine is 1.7, consistent with RYAN with worsening trend compared to 2 days ago. Lactic acid 1.7, within normal limits. Magnesium is 1.3 with IV repletion initiated. High-sensitivity troponin is 12.5, within normal limits. Procalcitonin is mildly elevated at 0.68. UA without convincing evidence of infection. Given the patient's worsening renal function patient and daughter agree with plan for admission for further management. [place] was [place] [facility] [place] will evaluate the patient for admission. Further management per admitting team. Triage Nursing notes reviewed and agree them. Prior/external medical records reviewed Vital Signs: reviewed Differential diagnosis: Benign positional vertigo, dehydration, hypovolemia, anemia, tumor, infection, hypoglycemia, electrolyte abnormalities, cardiac sources, intracerebral event, toxicologic, neurologic, as well as other pathologies. ER treatment provided: See below. Diagnostics interpreted by me: ECG: Sinus rhythm with occasional PVCs, 85 bpm, no overt ST elevation or depression, QTc 411, QRS 70. Cardiac Monitoring: An order for continuous cardiac monitoring was placed and demonstrated Sinus rhythm with occasional PVCs, 85 bpm. Laboratory studies: See below Imaging studies: See below Consultation(s): Case was d/[place]. [place], [facility] [place] who will evaluate the patient for admission. HPI: The patient is a pleasant 78-year-old woman with a past medical history of cholangiocarcinoma undergoing chemotherapy and cancer care with the [facility] who presents to the emergency department for evaluation of generalized weakness, dizziness, and poor oral intake in the setting of having recent dehydration and renal insufficiency on outpatient testing couple of days ago. The patient did not want to come to the hospital previously and so received IV fluids in clinic but has continued to feel dizzy and weak. She denies any fevers, cough, congestion, vomiting or diarrhea. She has been attempting to hydrate. She was recently treated with antibiotics for cellulitis in her lower legs. ROS: See above HPI for pertinent positives & negatives. A total of 10 systems reviewed and were otherwise negative. VITALS:See Below PHYSICAL EXAMINATION: GENERAL: Awake, alert, fatigued/chronically ill-appearing, in no distress HENT: Normocephalic, atraumatic. Oropharynx with dry mucous membranes and otherwise unremarkable. EYES: Normal conjunctiva. Sclera non-icteric. NECK: Supple. No nuchal rigidity. FROM. No JVD. RESPIRATORY: Clear to auscultation. CARDIAC: Regular rate, normal rhythm. Extremities warm and well perfused. Pulses equal. ABDOMEN: Soft, non-distended. No tenderness to palpation. No rebound or guarding. No masses. MUSCULOSKELETAL: Chest examination reveals no tenderness. The back is symmetrical on inspection without obvious abnormality. There is no CVA tenderness to palpation. No joint edema. LOWER EXTREMITIES: Calves are equal size bilaterally and non-tender. 1+ BLE pitting edema. No discoloration. NEURO: Normal sensorium. No sensory or motor deficits noted. SKIN: No rash or jaundice noted. 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 Brother No problems noted. Sister No problems noted. Brother No problems noted. Brother No problems noted. Brother No problems noted. Daughter No problems noted. Son No problems noted. Son No problems noted. Son No problems noted. Other No family history of adverse response to anesthesia Social History Smoking Status: Never smoker Tobacco Type: Cigarettes Age Started Using Tobacco: 20; Age Quit Using Tobacco: 74; packs per day: 0.75; Second Hand Exposure: No; Do You Dip or Chew Tobacco: No; Hx Alcohol Use: No Hx Substance Use: No Preferred Language: [place] Islander Communication Ability: Effective Visual Impairment: Limited Hearing Ability: Normal Inbound Sales Representative Required: No Beliefs That Will Affect Care: None marital status: / Current Living Situation: Alone Current Living Situation Comment: family check in on patient regularly current occupational status: retired 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 How many Children do You have: 4 Other Information That Helps Us Care for You: No Feels Safe at Home: Yes Safety Concerns: Feels Safe At This Time Childhood Exposure to Second-Hand Smoke: Yes Diet: diabetic caffeine: Yes (coffee) during the past year weight has: remained stable Dental Care, Regularly: No Assistive Devices: Denture - Upper Allergies Allergies Allergy/AdvReac Type Severity Reaction Status Date / Time No Known Allergies Allergy Verified 11/11/23 16:00 Home Meds Home Medications Medication Instructions Recorded Confirmed amlodipine 5 mg tablet 5 mg PO QAM 11/12/22 11/11/23 ascorbic acid (vitamin C) 500 mg 500 mg PO DAILY 11/12/22 11/11/23 tablet aspirin 81 mg tablet,delayed 81 mg PO QAM 11/12/22 11/11/23 release cholecalciferol (vitamin D3) 25 25 mcg PO DAILY 11/12/22 11/11/23 mcg (1,000 unit) tablet irbesartan 150 2 tab PO QAM 11/12/22 11/11/23 mg-hydrochlorothiazide 12.5 mg tablet metoprolol succinate 100 mg 100 mg PO QAM 11/12/22 11/11/23 tablet,extended release 24 hr zinc gluconate 50 mg tablet 0 mg PO DAILY 11/12/22 11/11/23 atorvastatin 40 mg tablet 40 mg PO HS 02/01/23 11/11/23 vitamins A,C,E-pgyb-sbnfzm 2,148 1 tab PO QAM 02/19/23 11/11/23 mcg-113 mg-45 mg-17.4 mg tablet (PreserVision AREDS) olanzapine 2.5 mg tablet 2.5 mg PO DAILY PRN .When gets 03/18/23 11/11/23 chemo ondansetron HCl 8 mg tablet 8 mg PO Q12H PRN Nausea And 03/18/23 11/11/23 Vomiting prochlorperazine maleate 10 mg 10 mg PO BID PRN Nausea 03/18/23 11/11/23 tablet amoxicillin 875 mg-potassium 1 tab PO Q12 11/11/23 11/11/23 clavulanate 125 mg tablet pemigatinib 4.5 mg tablet 4.5 mg PO DAILY 11/11/23 11/11/23 (Pemazyre) sevelamer carbonate 800 mg tablet 800 mg PO TIDM 11/11/23 11/11/23 Previous Rx's Medication Instructions Recorded insulin glargine 100 unit/mL 10 unit (0.1 mL) subcut QAM #10 mL 08/21/23 subcutaneous solution (Lantus U-100 Insulin) Results & Data (ED) Vital Signs Vital Signs - 24 hr 11/11/23 12:42 11/11/23 13:22 11/11/23 14:04 Temperature 36.3 C L Temperature Source Temporal Artery Scan Pulse Rate 85 77 Pulse Rate [Apical] 76 Pulse Rate from SpO2 Sensor 77 Pulse Rhythm [Apical] Regular Respiratory Rate 17 18 13 Respiratory Effort / Characteristics Non-Labored Spontaneous Non-Labored Spontaneous Respiratory Depth Normal Normal Respiratory Pattern Regular Regular Blood Pressure 88/54 L Blood Pressure [Right Arm] 73/44 L Blood Pressure Mean 65 Blood Pressure Mean [Right Arm] 53 Blood Pressure Position [Right Arm] Lying Pulse Oximetry 95 95 98 Oxygen Delivery Method Room Air Room Air Sepsis Recent Fever Within 48 Hours No Sepsis New/Unexplained Change in Mental Status N/A Sepsis Action Taken by Nursing No Action Required 11/11/23 14:05 11/11/23 14:05 11/11/23 14:16 Temperature Temperature Source Pulse Rate 78 77 Pulse Rate [Apical] Pulse Rate from SpO2 Sensor 78 78 Pulse Rhythm [Apical] Respiratory Rate 10 L 9 L Respiratory Effort / Characteristics Respiratory Depth Respiratory Pattern Blood Pressure 85/53 L Blood Pressure [Right Arm] Blood Pressure Mean 58 Blood Pressure Mean [Right Arm] Blood Pressure Position [Right Arm] Pulse Oximetry 98 97 Oxygen Delivery Method Sepsis Recent Fever Within 48 Hours Sepsis New/Unexplained Change in Mental Status Sepsis Action Taken by Nursing 11/11/23 14:20 11/11/23 14:20 11/11/23 14:28 Temperature Temperature Source Pulse Rate 74 76 Pulse Rate [Apical] Pulse Rate from SpO2 Sensor 74 76 Pulse Rhythm [Apical] Respiratory Rate 20 18 Respiratory Effort / Characteristics Respiratory Depth Respiratory Pattern Blood Pressure 84/48 L Blood Pressure [Right Arm] Blood Pressure Mean 61 Blood Pressure Mean [Right Arm] Blood Pressure Position [Right Arm] Pulse Oximetry 97 97 Oxygen Delivery Method Sepsis Recent Fever Within 48 Hours Sepsis New/Unexplained Change in Mental Status Sepsis Action Taken by Nursing 11/11/23 14:28 11/11/23 14:30 11/11/23 14:30 Temperature Temperature Source Pulse Rate 78 Pulse Rate [Apical] Pulse Rate from SpO2 Sensor 79 Pulse Rhythm [Apical] Respiratory Rate 16 Respiratory Effort / Characteristics Respiratory Depth Respiratory Pattern Blood Pressure 78/53 L 89/62 L Blood Pressure [Right Arm] Blood Pressure Mean 67 73 Blood Pressure Mean [Right Arm] Blood Pressure Position [Right Arm] Pulse Oximetry 97 Oxygen Delivery Method Sepsis Recent Fever Within 48 Hours Sepsis New/Unexplained Change in Mental Status Sepsis Action Taken by Nursing 11/11/23 14:50 11/11/23 15:00 11/11/23 15:10 Temperature Temperature Source Pulse Rate 76 85 78 Pulse Rate [Apical] Pulse Rate from SpO2 Sensor 77 78 Pulse Rhythm [Apical] Respiratory Rate 15 17 13 Respiratory Effort / Characteristics Respiratory Depth Respiratory Pattern Blood Pressure 95/59 L 115/72 113/59 L Blood Pressure [Right Arm] Blood Pressure Mean 71 86 77 Blood Pressure Mean [Right Arm] Blood Pressure Position [Right Arm] Pulse Oximetry 96 96 98 Oxygen Delivery Method Room Air Room Air Room Air Sepsis Recent Fever Within 48 Hours Sepsis New/Unexplained Change in Mental Status Sepsis Action Taken by Nursing 11/11/23 15:15 11/11/23 15:31 Temperature Temperature Source Pulse Rate 78 81 Pulse Rate [Apical] Pulse Rate from SpO2 Sensor 79 80 Pulse Rhythm [Apical] Respiratory Rate 15 20 Respiratory Effort / Characteristics Respiratory Depth Respiratory Pattern Blood Pressure 110/63 111/69 Blood Pressure [Right Arm] Blood Pressure Mean 78 83 Blood Pressure Mean [Right Arm] Blood Pressure Position [Right Arm] Pulse Oximetry 96 96 Oxygen Delivery Method Room Air Room Air Sepsis Recent Fever Within 48 Hours Sepsis New/Unexplained Change in Mental Status Sepsis Action Taken by Nursing Laboratory Data Attestation: I reviewed the patient's lab results. 11/11/23 12:54 11/11/23 12:54 Lab Results 11/11/23 Range/Units 12:54 WBC 10.80 (4.8-10.8) K/ul RBC 3.37 L (4.20-5.40) M/uL Hgb 10.1 L (12.0-16.0) g/dl Hct 29.5 L (37.0-47.0) % MCV 87.5 (80.0-100.0) fL MCH 30.0 (25.0-34.0) pg MCHC 34.2 (32.0-36.0) g/dL RDW Std Deviation 44.6 (36.4-46.3) fL RDW Coeff of Bin 14.0 (11.5-14.5) % Plt Count 186 (130-400) K/uL MPV 10.0 (9.4-12.4) fL Immature Gran % (Auto) 0.4 % Neut % (Auto) 87.3 % Lymph % (Auto) 6.7 % Cecil % (Auto) 4.5 % Eos % (Auto) 0.9 % Baso % (Auto) 0.2 % Neut # (Auto) 9.43 H (1.40-6.50) K/uL Lymph # (Auto) 0.72 L (1.20-3.40) K/uL Cecil # (Auto) 0.49 (0.11-0.59) K/uL Eos # (Auto) 0.10 (0.00-0.50) K/uL Baso # (Auto) 0.02 (0.00-0.20) K/uL Immature Gran # (Auto) 0.04 (0.01-0.20) K/uL PT 11.9 (9.0-12.0) Seconds INR 1.1 (0.9-1.1) APTT 28 (21-31) Seconds PTT Ratio 1.0 Sodium 134 L (136-145) mmol/L Potassium 4.3 (3.5-5.1) mmol/L Chloride 94 L (98-107) mmol/L Carbon Dioxide 29 (21-32) mmol/L Anion Gap 11 (3-11) BUN 27 H (6-23) mg/dl Creatinine 1.73 H (0.6-1.2) mg/dl Est Cr Clr Drug Dosing 27.5 ml/min Est GFR ( Amer) 32.7 ml/min Est GFR (Non-Af Amer) 28.2 ml/min BUN/Creatinine Ratio 15.6 (10-20) Glucose 199 H (70-99(Fasting)) mg/dl Lactate 1.7 (0.4-2.0) mmol/L Calcium 10.3 (8.6-10.3) mg/dl Phosphorus 7.1 H (2.5-4.9) mg/dl Magnesium 1.3 L (1.7-2.4) mg/dl Total Bilirubin 1.0 (0.2-1.0) mg/dl AST 22 (13-39) U/L ALT 25 (7-52) U/L Alkaline Phosphatase 115 H (34-104) U/L Troponin I High Sens 12.5 (0-14) pg/ml Total Protein 7.1 (6.0-8.3) gm/dl Albumin 3.6 (3.4-5.0) gm/dl Globulin 3.5 (2.5-4.0) gm/dl Albumin/Globulin Ratio 1.0 (0.9-2) Procalcitonin 0.68 H (0-0.5) ng/ml Administered Medications Amoxicillin/Clavulanate Potassium (Amoxicillin/Clavulanate 500 Mg Tab) 1 tab PO Q12 BRAULIO; Protocol Stop: 11/18/23 20:59 Last Admin: 11/11/23 21:43 Dose: 1 tab Documented By: ZOE Atorvastatin Calcium (Atorvastatin 40 Mg Tab) 40 mg PO HS BRAULIO Stop: 12/11/23 20:59 Last Admin: 11/11/23 21:43 Dose: 40 mg Documented By: ZOE Magnesium Sulfate/Dextrose (Magnesium Sulfate / D5w) 1 gm in 100 mls @ 50 mls/hr IV Q2H BRAULIO Stop: 11/12/23 01:29 Last Admin: 11/11/23 23:32 Dose: 50 mls/hr Documented By: Infusion: 11/11/23 23:32 Dose: Infused Documented By: Admin: 11/11/23 21:47 Dose: 50 mls/hr Documented By: Infusion: 11/11/23 21:47 Dose: Infused Documented By: Admin: 11/11/23 20:15 Dose: 50 mls/hr Documented By: Infusion: 11/11/23 20:15 Dose: Infused Documented By: Admin: 11/11/23 18:24 Dose: 50 mls/hr Documented By: ELMER Insulin Aspart (Insulin Aspart Per Unit Charge) 0 units SC ACHS BRAULIO Stop: 12/11/23 17:28 Last Admin: 11/11/23 21:43 Dose: 2 units Documented By: ZOE Co-signed By: ADRIANA Admin: 11/11/23 18:55 Dose: 3 units Documented By: MANSOOR Co-signed By: GREGORY Sevelamer Carbonate (Sevelamer Carbonate 800 Mg Tab) 800 mg PO TIDM BRAULIO Stop: 12/11/23 17:28 Last Admin: 11/11/23 18:55 Dose: 800 mg Documented By: MANSOOR Discontinued Medications Sodium Chloride (Nss) 500 mls @ 999 mls/hr IV .Q31M STA Stop: 11/11/23 13:19 Last Infusion: 11/11/23 17:09 Dose: Infused Documented By: Admin: 11/11/23 13:25 Dose: 999 mls/hr Documented By: SIMBA Sodium Chloride (Nss) 1,000 mls @ 999 mls/hr IV .Q1H1M ONE Stop: 11/11/23 14:18 Last Infusion: 11/11/23 17:09 Dose: Infused Documented By: Admin: 11/11/23 13:25 Dose: 999 mls/hr Documented By: SIMBA Sodium Chloride (Nss) 1,000 mls @ 999 mls/hr IV .Q1H1M ONE Stop: 11/11/23 15:42 Last Infusion: 11/11/23 17:09 Dose: Infused Documented By: Admin: 11/11/23 15:01 Dose: 999 mls/hr Documented By: KV Magnesium Sulfate/Dextrose (Magnesium Sulfate / D5w) 1 gm in 100 mls @ 100 mls/hr IV Q1H BRAULIO Stop: 11/11/23 16:44 Last Infusion: 11/11/23 18:23 Dose: Infused Documented By: Admin: 11/11/23 17:40 Dose: 100 mls/hr Documented By: Infusion: 11/11/23 17:09 Dose: Infused Documented By: Admin: 11/11/23 15:01 Dose: 100 mls/hr Documented By: KV Imaging Data Radiologist's Impression: Chest X-Ray 11/11/23 12:47 XR chest 1V not portable HISTORY: dizziness COMPARISON: Chest 10/12/2023. FINDINGS: No pneumothorax. No pleural effusions. The heart is normal in size. There is a left subclavian Port-A-Cath which terminates in the brachiocephalic/SVC junction. This remains unchanged. A few small left basilar linear densities favor subsegmental atelectasis or scarring. Otherwise, the lungs are clear. No evidence for pulmonary edema. Calcifications within the aortic knob. No acute fractures. IMPRESSION: No significant change compared to the prior study. No acute process. ACT 112: Negative or not required by law. Electronically signed by: Aaron Mitchell M.D. 11/11/2023 1:26 PM Renal Ultrasound 11/11/23 15:34 RENAL ULTRASOUND HISTORY: Acute kidney injury RYAN COMPARISON: MRI abdomen 07/31/2023 FINDINGS: Right kidney: 10.8 cm. 1.6 cm exophytic cyst of the mid to inferior pole. No hydronephrosis. Normal corticomedullary differentiation and cortical thickness. Left kidney: 11.5 cm. 2.7 x 2.2 x 2.1 cm exophytic cyst of the inferior pole left kidney. No hydronephrosis. Normal corticomedullary differentiation and cortical thickness. Bladder: No bladder wall thickening. The bilateral ureteral jets were not identified. Previously described hepatic lesions seen on prior MRI are not visualized. IMPRESSION: 1. No renal calculi or hydronephrosis identified by ultrasound. 2. Benign-appearing renal cysts. ACT 112: Negative or not required by law. Electronically signed by: Rodrigo Boyer M.D. 11/11/2023 5:00 PM Venous Doppler Study 11/11/23 15:34 BILATERAL LOWER EXTREMITY VENOUS DOPPLER HISTORY: Acute pain and swelling of the lower legs b/l leg swelling r/o DVT COMPARISON STUDY: 08/26/2023 FINDINGS: There is normal compressibility, flow, and augmentation within the bilateral lower extremity deep venous systems. 1.2 x 2.6 x 0.9 cm Fox's cyst. IMPRESSION: No DVT within the right or left lower extremity. ACT 112: Negative or not required by law. Electronically signed by: Rodrigo Boyer M.D. 11/11/2023 4:58 PM Discharge Plan Visit Data Chief Complaint: Dehydration Stated Complaint: DEHYDRATED, DIZZY ED Provider: Robby Graves Discharge Problem: RYAN (acute kidney injury), Cholangiocarcinoma, Dehydration, Hypotension Patient Disposition: Admitted As Inpatient Discharge Instructions Interventions: ED Discharge Assessment Last Done: 11/11/23 17:30 Discharge Problem: Hypotension Qualifiers: Hypotension type: unspecified hypotension type Qualified Code(s): I95.9 - Hypotension, unspecified
[2023-11-11] MEDS: MAGNESIUM SULFATE / D5W 1 GM/100 ML BAG IV SCH ×2 (15:01→18:24)
--- NOTE | 2023-11-11 15:04 | History & Physical Report ---
Date of Service November 11, 2023 Assessment & Plan (1) RYAN (acute kidney injury): Plan: Most likely pre-renal secondary to hypotension due to multi anti-hypertensives most likely just no longer required in setting of cholangiocarcinoma She does not appear overtly dehydrated and will hold off further IV fluids Given associated bilateral leg swelling will also get UA to assess for proteinuria and renal US to rule out post obstructive cause however most likely edema is just secondary to pemigatinib Stop amlodipine, irbesartan/HCTZ Will preliminary continue metoprolol succinate but at half her normal dose with hold parameters to avoid rebound tachycardia (2) Peripheral edema: Plan: Suspected secondary to pemigatinib GERSON clark UA to assess for proteinuria Currently does not appear infected but will continue Augmentin for cellulitis as prescribed as outpatient (3) Hypomagnesemia: Plan: Chronic but acutely worse in setting of HCTZ use Mg sulfate 2 g IV given in ER, additional 4g ordered given chronically low will redistribute over coming days (4) Diabetes mellitus, type 2: Plan: HbA1C 6.8 in January 2023, repeat with AM labs Continue Lantus 10 units QAM Novolog: --Goal BSG Range: Low 110 mg/dL, High 140 mg/dL --Correction Factor: 45 mg/dL/unit --Carbohydrate ratio = 15 g/unit --BSGs ACHS if eating, q6h if npo (5) Hypertension: (6) Cholangiocarcinoma: (7) Hypotension: Plan VTE Prophylaxis - heparin 5000 units BID Diet - heart healthy, T2DM Disposition - admit to med/tele Admission and Anticipated Discharge Date Admission Date: November 11, 2023 History of Present Illness Chief Complaint: Bilateral leg swelling Dizziness Primary Care Provider: Lester Cali Meli Rincon is a 78 year old female with cholangiocarcinoma who presents to the ER with bilateral leg swelling and lightheadedness. She is currently under treatment for cholangiocarcinoma with pemigatinib (currently on off days). She reports seeing Dr Wright on Thursday for bilateral leg swelling and routine la bs. She was started on Augmentin for cellulitis of her legs and Cr was increased therefore IV fluids was discussed but the patient elected to try and push more fluids at home. Today she felt lightheaded and dizzy wtih a BP 80/50 therefore her daughter brought her to the ER. She feels like she is eating and drinking well although this is disputed by her daughter. She has continued to take her anti-hypertensives and took them all this morning. She reports her leg swelling has also been getting worse over the last 4 days. She reports similar leg swelling in August when she was also diagnosed with cellulitis and initially placed on Keflex which did not help but was switched to Augmentin which resolved the leg swelling at that time. The currently leg swelling has been getting worse over the last week. Allergies Allergy/AdvReac Type Severity Reaction Status Date / Time No Known Allergies Allergy Verified 11/11/23 16:00 Home Medications Medication Instructions Recorded Confirmed Type amlodipine 5 mg tablet 5 mg PO QAM 11/12/22 11/11/23 History ascorbic acid (vitamin C) 500 mg 500 mg PO DAILY 11/12/22 11/11/23 History tablet aspirin 81 mg tablet,delayed 81 mg PO QAM 11/12/22 11/11/23 History release cholecalciferol (vitamin D3) 25 25 mcg PO DAILY 11/12/22 11/11/23 History mcg (1,000 unit) tablet irbesartan 150 2 tab PO QAM 11/12/22 11/11/23 History mg-hydrochlorothiazide 12.5 mg tablet metoprolol succinate 100 mg 100 mg PO QAM 11/12/22 11/11/23 History tablet,extended release 24 hr zinc gluconate 50 mg tablet 0 mg PO DAILY 11/12/22 11/11/23 History atorvastatin 40 mg tablet 40 mg PO HS 02/01/23 11/11/23 History vitamins A,C,E-rnmo-ruqvsy 2,148 1 tab PO QAM 02/19/23 11/11/23 History mcg-113 mg-45 mg-17.4 mg tablet (PreserVision AREDS) olanzapine 2.5 mg tablet 2.5 mg PO DAILY PRN .When gets 03/18/23 11/11/23 History chemo ondansetron HCl 8 mg tablet 8 mg PO Q12H PRN Nausea And 03/18/23 11/11/23 History Vomiting prochlorperazine maleate 10 mg 10 mg PO BID PRN Nausea 03/18/23 11/11/23 History tablet insulin glargine 100 unit/mL 10 unit (0.1 mL) subcut QAM #10 mL 08/21/23 11/11/23 Rx subcutaneous solution (Lantus U-100 Insulin) amoxicillin 875 mg-potassium 1 tab PO Q12 11/11/23 11/11/23 History clavulanate 125 mg tablet pemigatinib 4.5 mg tablet 4.5 mg PO DAILY 11/11/23 11/11/23 History (Pemazyre) sevelamer carbonate 800 mg tablet 800 mg PO TIDM 11/11/23 11/11/23 History Past Med/Surg History Medical History History of left common carotid artery stent placement Arthritis Liver cancer Diabetes mellitus, type 2 Internal carotid artery stent present Liver mass Macular degeneration High cholesterol Hypertension CVA (cerebral vascular accident) 2020>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 Brother No problems noted. Sister No problems noted. Brother No problems noted. Brother No problems noted. Brother No problems noted. Daughter No problems noted. Son No problems noted. Son No problems noted. Son No problems noted. Other No family history of adverse response to anesthesia Social History Smoking Status: Never smoker Tobacco Type: Cigarettes Age Started Using Tobacco: 20; Age Quit Using Tobacco: 74; packs per day: 0.75; Second Hand Exposure: No; Do You Dip or Chew Tobacco: No; Hx Alcohol Use: No Hx Substance Use: No Preferred Language: Belarusian Communication Ability: Effective Visual Impairment: Limited Hearing Ability: Normal Lap Runner Required: No Beliefs That Will Affect Care: None marital status: / Current Living Situation: Alone Current Living Situation Comment: family check in on patient regularly current occupational status: retired 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 How many Children do You have: 4 Other Information That Helps Us Care for You: No Feels Safe at Home: Yes Safety Concerns: Feels Safe At This Time Childhood Exposure to Second-Hand Smoke: Yes Diet: diabetic caffeine: Yes (coffee) during the past year weight has: remained stable Dental Care, Regularly: No Assistive Devices: Denture - Upper Review of Systems Review of Systems: All systems reviewed & are unremarkable except as noted in HPI & below Physical Exam Constitutional: WD/WN, vitals as above Eyes: PERRL, conjunctivae normal, anicteric sclerae ENMT: external ear and nose normal, oropharynx normal Mouth: oral mucous membranes not dry Respiratory: normal respiratory effort, lungs clear to auscultation Cardiovascular: Rate/Rhythm: regular rate and regular rhythm Heart Sounds: + murmur Extremities: normal capillary refill and + pedal edema (2+ b/l equal); no calf tenderness Gastrointestinal (Abdomen): normal bowel sounds, soft, nontender, no hepatosplenomegaly Neurologic: Motor/Sensory: + pronator drift (mild right sided) Psychiatric: A+Ox3, euthymic affect Results & Data Results & Data Vital Signs (Past 12 Hours) Vital Signs Temp Pulse Pulse Resp BP BP Pulse Ox 11/11/23 14:30 78 16 97 11/11/23 14:30 89/62 L 11/11/23 14:28 78/53 L 11/11/23 14:28 76 18 97 11/11/23 14:20 74 20 97 11/11/23 14:20 84/48 L 11/11/23 14:16 77 9 L 97 11/11/23 14:05 85/53 L 11/11/23 14:05 78 10 L 98 11/11/23 14:04 77 13 98 11/11/23 13:22 76 18 73/44 L 95 11/11/23 12:42 36.3 C L 85 17 88/54 L 95 O2 Del Method 11/11/23 14:30 11/11/23 14:30 11/11/23 14:28 11/11/23 14:28 11/11/23 14:20 11/11/23 14:20 11/11/23 14:16 11/11/23 14:05 11/11/23 14:05 11/11/23 14:04 11/11/23 13:22 Room Air 11/11/23 12:42 Room Air Laboratory Results Abnormal lab results 11/11/23 11/11/23 11/11/23 Range/Units 12:54 15:50 17:36 RBC 3.37 L (4.20-5.40) M/uL Hgb 10.1 L (12.0-16.0) g/dl Hct 29.5 L (37.0-47.0) % Neut # (Auto) 9.43 H (1.40-6.50) K/uL Lymph # (Auto) 0.72 L (1.20-3.40) K/uL Sodium 134 L (136-145) mmol/L Chloride 94 L (98-107) mmol/L BUN 27 H (6-23) mg/dl Creatinine 1.73 H (0.6-1.2) mg/dl Glucose 199 H (70-99(Fasting)) mg/dl POC Glucose (70-99) mg/dl Phosphorus 7.1 H (2.5-4.9) mg/dl Magnesium 1.3 L (1.7-2.4) mg/dl Alkaline Phosphatase 115 H (34-104) U/L B-Natriuretic Peptide 118 H (0-100) pg/ml Procalcitonin 0.62 H (0-0.5) ng/ml Ur Leukocyte Esterase Trace H (Negative) 11/11/23 11/11/23 Range/Units 17:57 20:23 RBC (4.20-5.40) M/uL Hgb (12.0-16.0) g/dl Hct (37.0-47.0) % Neut # (Auto) (1.40-6.50) K/uL Lymph # (Auto) (1.20-3.40) K/uL Sodium (136-145) mmol/L Chloride (98-107) mmol/L BUN (6-23) mg/dl Creatinine (0.6-1.2) mg/dl Glucose (70-99(Fasting)) mg/dl POC Glucose 160 H 197 H (70-99) mg/dl Phosphorus (2.5-4.9) mg/dl Magnesium (1.7-2.4) mg/dl Alkaline Phosphatase (34-104) U/L B-Natriuretic Peptide (0-100) pg/ml Procalcitonin (0-0.5) ng/ml Ur Leukocyte Esterase (Negative) Diagnostic Findings XR chest 1V not portable HISTORY: dizziness COMPARISON: Chest 10/12/2023. FINDINGS: No pneumothorax. No pleural effusions. The heart is normal in size. There is a left subclavian Port-A-Cath which terminates in the brachiocephalic/SVC junction. This remains unchanged. A few small left basilar linear densities favor subsegmental atelectasis or scarring. Otherwise, the lungs are clear. No evidence for pulmonary edema. Calcifications within the aortic knob. No acute fractures. IMPRESSION: No significant change compared to the prior study. No acute process. Medications Administered ER Medications Given: NSS 500ml bolus NSS 1000ml bolus ECG Rate (beats per minute): 85 Rhythm: normal sinus Findings: + nonspecific-ST abn (Inferior) and + PVC Comparison ECG Date: from (February 01, 2023) Change: the following changes noted (TWI no longer evident, ST no longer depressed anterolateral leads) Code Status & VTE Plan Code Status DNR/DNI VTE Prophylaxis Plan VTE Prophylaxis will be ordered: Yes PG Care Time/CCT Total # of Minutes Spent Total Time Spent with Patient: Total time spent is greater than 50% in coordination of care (as documented) at patient's floor/unit and/or counseling patient: Coding Level of Care Code 19860 INT INP/OBS CARE 3/75MIN Diagnoses RYAN (acute kidney injury) N17.9 Peripheral edema R60.0 Hypomagnesemia E83.42 Type 2 diabetes mellitus without complication, unspecified whether fci insulin use E11.9 Diabetes mellitus complication status: without complication 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: unspecified fci insulin use status Primary hypertension I10 Hypertension type: primary hypertension Cholangiocarcinoma C22.1 Hypotension I95.9 Hypotension type: unspecified hypotension type (4) Diabetes mellitus, type 2 Diabetes mellitus complication status: without complication 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
[2023-11-11 15:55] LABS: Phosphorus 7.1 mg/dl (2.5-4.9)
[2023-11-11 16:54] LABS: Appearance Urine Clear (Clear); Bacteria Urine Automated None Seen (None Seen); Bilirubin Urine Negative (Negative); Blood Urine Negative (Negative); Cast Urine Automated 0-2 /lpf (0-2); Color Urine Yellow; Epithelial Cell Urine Auto 0-2 /hpf (0-2); Glucose Urine UA Negative (Negative); Ketones Urine Negative (Negative); Leukocyte Esterase Urine Trace (Negative); Nitrite Urine Negative (Negative); Protein Urine Negative (Negative); RBC Urine Automated 0-2 /hpf (0-2); Specific Gravity Urine 1.006 (1.000-1.030); Urobilinogen Urine Negative (Negative); WBC Urine Automated 0-5 /hpf (0-5)
--- NOTE | 2023-11-11 16:59 | Ultrasound Report ---
BILATERAL LOWER EXTREMITY VENOUS DOPPLER HISTORY: Acute pain and swelling of the lower legs b/l leg swelling r/o DVT COMPARISON STUDY: 08/26/2023 FINDINGS: There is normal compressibility, flow, and augmentation within the bilateral lower extremit y deep venous systems. 1.2 x 2.6 x 0.9 cm Fox's cyst. IMPRESSION: No DVT within the right or left lower extremity. ACT 112: Negative or not required by law. Electronically signed by: Rodrigo Boyer M.D. 11/11/2023 4:58 PM
--- NOTE | 2023-11-11 17:01 | Ultrasound Report ---
RENAL ULTRASOUND HISTORY: Acute kidney injury RYAN COMPARISON: MRI abdomen 07/31/2023 FINDINGS: Right kidney: 10.8 cm. 1.6 cm exophytic cyst of the mid to inferior pole. No hydronephrosis. Normal c orticomedullary differentiation and cortical thickness. Left kidney: 11.5 cm. 2.7 x 2.2 x 2.1 cm exophytic cyst of the inferior pole left kidney. No hydronep hrosis. Normal corticomedullary differentiation and cortical thickness. Bladder: No bladder wall thickening. The bilateral ureteral jets were not identified. Previously described hepatic lesions seen on prior MRI are not visualized. IMPRESSION: 1. No renal calculi or hydronephrosis identified by ultrasound. 2. Benign-appearing renal cysts. ACT 112: Negative or not required by law. Electronically signed by: Rodrigo Boyer M.D. 11/11/2023 5:00 PM
[2023-11-11] MEDS ORDERED: GLUCAGON FOR INJ 1 MG VIAL SQ PRN (17:29)
[2023-11-11] MEDS ORDERED: ACETAMINOPHEN 325 MG TAB PO PRN (17:29)
[2023-11-11] MEDS ORDERED: GLUCOSE 10 TAB/TUBE PO PRN (17:29)
[2023-11-11] MEDS ORDERED: DEXTROSE 50% 50 ML SYRINGE IV PRN (17:29)
[2023-11-11] MEDS ORDERED: GLUCOSE 40% GEL 15 GM TUBE PO PRN (17:29)
[2023-11-11] MEDS ORDERED: CARBOHYDRATES FOR HYPOGLYCEMIA PO PRN (17:29)
[2023-11-11] MEDS: SEVELAMER CARBONATE 800 MG TAB PO SCH (18:55)
[2023-11-11] MEDS: INSULIN ASPART PER UNIT CHARGE SC SCH (18:55)
[2023-11-11] MEDS ORDERED: LACTATED RINGER'S 1,000 ML IV SCH (21:00)
[2023-11-11] MEDS: AMOXICILLIN/CLAVULANATE 500 MG TAB PO SCH (21:43)
[2023-11-11] MEDS: ATORVASTATIN 40 MG TAB PO SCH (21:43)
[2023-11-12 07:14] LABS: Basophils # (auto) 0.01 K/uL (0.00-0.20); Basophils % (auto) 0.2 %; Eosinophils # (auto) 0.21 K/uL (0.00-0.50); Eosinophils % (auto) 3.9 %; Hematocrit (blood only) 27.1 % (37.0-47.0); Hemoglobin 9.1 g/dl (12.0-16.0); Immature Granulocytes # (auto) 0.01 K/uL (0.01-0.20); Immature Granulocytes % (auto) 0.2 %; Lymphocytes # (auto) 0.76 K/uL (1.20-3.40); Lymphocytes % (auto) 14.1 %; Mean Corpuscular Hemoglobin 29.4 pg (25.0-34.0); Mean Corpuscular Hgb Conc 33.6 g/dL (32.0-36.0); Mean Corpuscular Volume 87.4 fL (80.0-100.0); Mean Platelet Volume 9.8 fL (9.4-12.4); Monocytes # (auto) 0.37 K/uL (0.11-0.59); Monocytes % (auto) 6.9 %; Neutrophils # (auto) 4.03 K/uL (1.40-6.50); Neutrophils % (auto) 74.7 %; Platelet Count 164 K/uL (130-400); RDW Coefficient of Variation 13.8 % (11.5-14.5); RDW Standard Deviation 43.5 fL (36.4-46.3); White Blood Count 5.39 K/ul (4.8-10.8)
[2023-11-12 07:22] LABS: Estimated Average Glucose 157 mg/dl; Hemoglobin A1C 7.1 % (4.5-5.6)
[2023-11-12 08:03] LABS: BUN Creatinine Ratio 17.8 (10-20); Calcium 9.4 mg/dl (8.6-10.3); Est GFR (African American) 62.6 ml/min; Magnesium 2.2 mg/dl (1.7-2.4); Potassium 3.7 mmol/L (3.5-5.1)
[2023-11-12] MEDS: METOPROLOL SUCC 50MG EXT REL TAB PO SCH (08:09)
[2023-11-12] MEDS: ASPIRIN 81 MG ECTAB PO SCH (08:10)
[2023-11-12] MEDS: ZINC SULFATE 220 MG CAPSULE PO SCH (08:11)
[2023-11-12] MEDS: CHOLECALCIFEROL 25 MCG (1000 UNITS) TAB PO SCH (08:11)
[2023-11-12] MEDS: HEPARIN SOD 5,000 UNIT/0.5 ML VIAL SQ SCH (08:46)
[2023-11-12] MEDS: LANTUS PER UNIT CHARGE SQ SCH (08:47)
[2023-11-12] MEDS ORDERED: METOPROLOL SUCC 50MG EXT REL TAB PO SCH (09:00)
[2023-11-12] MEDS ORDERED: CEROVITE ADV FORMULA TAB PO SCH (11:30)
[2023-11-12] MEDS: OPTIRAY 320 100ml IV ONE (11:52)
--- NOTE | 2023-11-12 12:17 | CT Scan Report ---
CT SCAN OF THE CHEST WITH IV CONTRAST CLINICAL HISTORY: Cholangiocarcinoma. COMPARISON STUDY: Chest CT scans dated 07/31/2023 and 02/02/2023. TECHNIQUE: Following the IV administration of 94 cc of Optiray 320, CT scan of the thorax was perform ed from the thoracic inlet to the upper abdomen. Images are reviewed in the axial, sagittal, and meño nal planes. IV contrast was administered without complication. A dose lowering technique was utilize d adhering to the principles of ALARA. FINDINGS: Thyroid: Imaged portions of the thyroid gland are normal in size and attenuation. Thoracic aorta: There is atherosclerotic calcification of the thoracic aorta, which is normal in juan j bill and demonstrates standard 3-vessel arch anatomy. No dissection is seen. Pulmonary vasculature: The pulmonary trunk is normal in caliber. There are no filling defects identif ied in the central pulmonary vessels to indicate pulmonary embolus. Note that this examination was no t protocoled for evaluation of the pulmonary arteries. Heart: A left subclavian central venous infusion port is in place. The heart is normal in size and wi thout pericardial effusion. The coronary arteries are densely calcified. Lungs and pleural spaces: Emphysematous change is noted. There is bibasilar scarring/atelectasis. No airspace consolidation typical for pneumonia or pleural effusion is identified. The trachea and centr al airways are clear. Mediastinum: There is no mediastinal lymphadenopathy. Yuliet: Clear. Axillae: There is no axillary lymphadenopathy. Upper abdomen: There are calcified gallstones. The patient's known right lobe liver lesion is not wel l-visualized. Skeletal structures: The skeletal structures are osteopenic. Degenerative change is noted in the shou lders and spine. No lytic or blastic bony lesions are seen. IMPRESSION: 1. There is no evidence of intrathoracic metastatic disease. 2. Emphysema. 3. There is no airspace consolidation or pleural effusion. 4. Cholelithiasis. 5. Additional findings as above. ACT 112: Negative or not required by law. Electronically signed by: Wallace Palmer M.D. 11/12/2023 12:16 PM
--- NOTE | 2023-11-12 12:17 | CT Scan Report ---
ABDOMEN AND PELVIS CT WITH IV CONTRAST CT DOSE: 1779.46 mGy.cm HISTORY: Follow-up. cholangiocarcinoma TECHNIQUE: Multiaxial CT images of the abdomen and pelvis were performed following the use of intrave nous contrast. A dose lowering technique was utilized adhering to the principles of ALARA. COMPARISON STUDY: Abdominal MRI 07/31/2023. Abdomen and pelvis CT 04/29/2023. FINDINGS: The lung bases will be reported on the same day chest CT. No pneumoperitoneum. No pneumatos is. No suspicious lytic or blastic osseous lesions. A few punctate gallstones. No gallbladder wall th ickening. Normal color, bile duct. The pancreas, spleen, and adrenal glands unremarkable. Stable bila teral renal hypodense lesions. These favor cysts. No hydronephrosis. No retroperitoneal lymphadenopat hy. Calcified plaque within the ectatic abdominal aorta measuring up to 2.5 cm in diameter. No pelvic lymphadenopathy or pelvic free fluid. The bladder, uterus, bilateral adnexa are unremarkable. Coloni c diverticulosis. No evidence for acute diverticulitis. No bowel wall thickening or obstruction. The appendix is surgically absent. Redemonstration of ill-defined hypodense lesion within the central asp ect of the liver adjacent to the intrahepatic IVC. 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 This lesion is difficult to measure due to the ill-defined appe arance but is approximately 4.6 cm. This is similar to the prior abdominal MRI. This partially surrou nds intrahepatic IVC but does not result in obstruction of the IVC. This is also unchanged. The small satellite lesions at the right hepatic dome seen on the recent MRI are not well visualized on this s tudy. No new hepatic lesions identified. IMPRESSION: 1. Redemonstration of the ill-defined lesion within the central liver adjacent to the intrahepatic IV C which measures approximately 4.6 cm consistent the patient's history of cholangiocarcinoma. This is similar to the prior studies. 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 2. No new hepatic lesions identified. 3. No evidence for metastatic disease. 4. Cholelithiasis. 5. Additional findings as described above. ACT 112: Negative or not required by law. Electronically signed by: Aaron Mitchell M.D. 11/12/2023 12:16 PM
--- NOTE | 2023-11-12 12:27 | Discharge Summary ---
Date of Service November 12, 2023 Admission HPI Per Admitting Provider Meli Rincon is a 78 year old female with cholangiocarcinoma who presents to the ER with bilateral leg swelling and lightheadedness. She is currently under treatment for cholangiocarcinoma with pemigatinib (currently on off days). She reports seeing Dr Wright on Thursday for bilateral leg swelling and routine labs. She was started on Augmentin for cellulitis of her legs and Cr was increased therefore IV fluids was discussed but the patient elected to try and push more fluids at home. Today she felt lightheaded and dizzy wtih a BP 80/50 therefore her daughter brought her to the ER. She feels like she is eating and drinking well although this is disputed by her daughter. She has continued to take her anti-hypertensives and took them all this morning. She reports her leg swelling has also been getting worse over the last 4 days. She reports similar leg swelling in August when she was also diagnosed with cellulitis and initially placed on Keflex which did not help but was switched to Augmentin which resolved the leg swelling at that time. The currently leg swelling has been getting worse over the last week. Principal Diagnosis RYAN Discharge Exam Constitutional: WD/WN, vitals as above Eyes: PERRL, conjunctivae normal, anicteric sclerae ENMT: external ear and nose normal, oropharynx normal Respiratory: normal respiratory effort, lungs clear to auscultation Cardiovascular: Rate/Rhythm: regular rate and regular rhythm Heart Sounds: + murmur Extremities: normal capillary refill and + pedal edema (2+ b/l equal); no calf tenderness Gastrointestinal (Abdomen): normal bowel sounds, soft, nontender, no hepatosplenomegaly Neurologic: Motor/Sensory: + pronator drift (mild right sided) Psychiatric: A+Ox3, euthymic affect Discharge Data Allergies Allergy/AdvReac Type Severity Reaction Status Date / Time No Known Allergies Allergy Verified 11/11/23 16:00 Consultations 11/11/23 14:42 ED Decision to Admit Stat Ordered Studies 11/11/23 15:34 US Renal Bladder [US renal/blad retro comp] Stat US venous doppler LE BI Stat 11/12/23 08:34 CT abd pelvis IV con only Routine 11/12/23 08:35 CT chest diagnostic w con Routine Hospital Course (1) RYAN (acute kidney injury): Most likely pre-renal secondary to hypotension due to multi anti-hypertensives most likely just no longer required in setting of cholangiocarcinoma She does not appear overtly dehydrated and held off further IV fluids Given associated bilateral leg swelling most likely edema is just secondary to pemigatinib Stop amlodipine, irbesartan/HCTZ Will continue metoprolol succinate but at half her normal dose Creatinine improved. (2) Peripheral edema: Suspected secondary to pemigatinib GERSON clark UA: negative proteinuria Currently does not appear infected but will continue Augmentin for cellulitis as prescribed as outpatient (3) Hypomagnesemia: Chronic but acutely worse in setting of HCTZ use Mg sulfate 2 g IV given in ER, additional 4g ordered given chronically low will redistribute over coming days will need to recheck as an outpatient (4) Diabetes mellitus, type 2: HbA1C 6.8 in January 2023, repeat: 7.1 Continue Lantus 10 units QAM (5) Hypertension: (6) Cholangiocarcinoma: (7) Hypotension: Total Time Total Time Spent Total Time Spent (In Minutes): 32 Discharge Plan Discharge Items Patient Disposition: Home - Self-Care Reason For Visit: RYAN, HYPOTENSION Discharge Diagnosis: RYAN Activity: Resume your previous activity Non-emergency contact: Primary Care Provider Call non-emergency contact if: you have any medication questions Follow-up/Referrals: Lester Cali [Primary Care Provider] - 11/17/23 10:00 am Diet: Carb Consistent or DM2 and Heart Healthy Addtl Attending Provider Instructions: Will recommend close followup with PCP in 1-2 weeks. We will cut back on metoprolol from 100 mg to 50 mg. You can cut 100mg tablets in half if you have them. I also sent 50 mg tablets to your pharmacy if cutting them prrofs to be difficutl. In the meantime, do not take: -amlodipine -ibesartan -pemazyre Pending Studies at Discharge: No Stand-Alone Forms: My [facility] [employer], Smoking Cessation Medications and DC Order Prescriptions: New metoprolol succinate 50 mg tablet extended release 24 hr 50 mg PO DAILY Qty: 30 0RF metoprolol succinate 50 mg tablet extended release 24 hr 50 mg PO DAILY Qty: 30 0RF Continued insulin glargine [Lantus U-100 Insulin] 100 unit/mL solution 10 unit subcut QAM Qty: 10 3RF Rx Instructions: Inject 10 units into the abdomen daily. olanzapine 2.5 mg tablet 2.5 mg PO DAILY PRN (Reason: .When gets chemo) prochlorperazine maleate 10 mg tablet 10 mg PO BID PRN (Reason: Nausea) ondansetron HCl 8 mg tablet 8 mg PO Q12H PRN (Reason: Nausea And Vomiting) atorvastatin 40 mg tablet 40 mg PO HS aspirin 81 mg Tablet,Delayed Release (Dr/Ec) 81 mg PO QAM cholecalciferol (vitamin D3) 25 mcg (1,000 unit) Tablet 25 mcg PO DAILY ascorbic acid (vitamin C) 500 mg Tablet 500 mg PO DAILY zinc gluconate 50 mg Tablet 0 mg PO DAILY PreserVision AREDS 2,148 mcg-113 mg-45 mg-17.4mg Tablet 1 tab PO QAM Rx Instructions: administer with AM and PM meals amoxicillin-pot clavulanate 875-125 mg tablet 1 tab PO Q12 sevelamer carbonate 800 mg tablet 800 mg PO TIDM Discontinued amlodipine 5 mg tablet 5 mg PO QAM irbesartan-hydrochlorothiazide 150-12.5 mg tablet 2 tab PO QAM Pemazyre 4.5 mg tablet 4.5 mg PO DAILY Discharge Orders: Discharge Order (Routine); Ordered 11/12/23 Ordered By: Jimmy Shafer Admission Data Admit Date/Time: 11/11/23 15:37 Attending Provider: Jimmy Shafer Admit Provider: Sourav Kent Primary Care Provider: Lester Cali Other Providers: Sourav Kent Coding Level of Care Code 29988 INP/OBS DISCH >30 MIN Diagnoses RYAN (acute kidney injury) N17.9 Peripheral edema R60.0 Hypomagnesemia E83.42 Type 2 diabetes mellitus without complication, unspecified whether care home insulin use E11.9 Diabetes mellitus complication status: without complication 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
[2023-11-12] MEDS ORDERED: AMOXICILLIN/CLAVULANATE 875 MG TAB PO SCH (17:00)
--- NOTE | 2023-11-15 19:03 | Electrocardiogram Report ---
Test Reason : Blood Pressure : / mmHG Vent. Rate : 085 BPM Atrial Rate : 085 BPM P-R Int : 140 ms QRS Dur : 070 ms QT Int : 346 ms P-R-T Axes : 079 047 066 degrees QTc Int : 411 ms Sinus rhythm with occasional Premature ventricular complexes Otherwise normal ECG When compared with ECG of 01-FEB-2023 16:04, Premature ventricular complexes are now Present ST no longer depressed in Anterolateral leads T wave inversion no longer evident in Inferior leads T wave inversion no longer evident in Anterolateral leads Confirmed by Alberto Leal ([id number]) on 11/15/2023 7:03:33 PM Referred By: Confirmed By:Alberto Leal
== END 2023-11-12 15:38 | disposition home or self-care (01) | DRG 683 ==
LOC: ED 12:36 → EDINP 15:37 → SUATTDRO 15:37 → 2N 17:30